=== PATIENT | female | born 1940 | race Caucasian/White ===

== ENCOUNTER 2024-03-23 12:47 | Observation (INO) | payer MEDICARE, SELFPAY ==
--- NOTE | 2024-03-23 12:52 | PC.NURSE ---
arrived by stretcher from [place]
--- NOTE | 2024-03-23 12:55 | HMH.PHAINT1 ---
Pharmacy Intervention Comments: MEDICATION RECONCILIATION COMPLETED ON PATIENT USING EXTERNAL FILL HISTORY FROM PHARMACY. -MARY IBARRA, AMYD
[2024-03-23 13:07] VITALS: PULSE 60
--- NOTE | 2024-03-23 13:10 | ECG_ITS ---
APPROVED REPORT Exam: Resting ECG HR:66 bpm ECG Measurements Heart Rate 66 AXES NM 155 P 60 QRSd 94 QRS -15 QT 397 T 35 QTc 411 Conclusion SINUS RHYTHM LEFT ATRIAL ABNORMALITY POSSIBLE LEFT VENTRICULAR HYPERTROPHY [VOLTAGE CRITERIA PLUS LAE OR QRS WIDENING] ABNORMAL ECG UNCONFIRMED REPORT Electronically signed by : Tano Alarcon MD 03/24/2024 08:55:42
--- NOTE | 2024-03-23 13:12 | P.HP_ITS ---
History of Present Illness *Admission Date: 03/23/24 *Reason for visit:: Chest pain *History of present illness: Ms. Villanueva is an 83-year-old female with history of hypertension, concern for memory impairment over the past year. Family states she fell about a week ago and sustained skin tear on her right arm. Yesterday however she began complaining of some chest pain. Worse this morning. Was sent to the ER at [facility] for evaluation. Workup fairly unremarkable other than CT of chest showing acute on chronic (slight progression) compression fractures in T10-12. Additionally found to have a high-sensitivity troponin that went from 28-73. No acute changes on EKG. Given chest pain and bump in troponin, cardiology was consulted for transfer. On arrival, patient stable on room air. Denies any nausea or vomiting. Points to the center of her chest, pain reproducible on exam. Family at bedside. Patient appears mildly/pleasantly confused. Oriented to self and situation. Difficulty getting history from her. Family at bedside. They deny fever, nausea, vomiting. No diarrhea. No confusion or syncope. Initiated on Brilinta and aspirin [facility]. [facility] Disclaimer: The information contained in this section may have been updated after the patient was seen, as this information can be updated by other users. Medical History (Updated 03/23/24 @ 15:52 by Jimmy Mitchell MD) Anxiety History of stroke Hypertension Surgical History History of hysterectomy Family History Other No significant family history Social History Smoking Status: Never smoker alcohol intake: never current occupational status: retired Travel in the last 8 weeks: None Review of Systems Review of Systems Review of systems (narrative): 14 point review of systems performed, pertinent positives and negatives as per [facility] Meds Home Medications and Allergies Home Medications ?Medication ?Instructions ?Recorded ?Confirmed ?Type alendronate 70 mg tablet 70 mg PO WEEKLY 03/23/24 03/23/24 History amlodipine 5 mg tablet 5 mg PO DAILY 03/23/24 03/23/24 History buspirone 15 mg tablet 15 mg PO TID 03/23/24 03/23/24 History dextromethorphan IR 45 1 tab PO BID 03/23/24 03/23/24 History mg-bupropion ER 105 mg biphasic tablet (Auvelity) New Prescriptions to Start Prescriptions: Allergies Allergy/AdvReac Type Severity Reaction Status Date / Time Penicillins Allergy Hives Verified 03/23/24 13:02 Exam Constitutional Constitutional: no acute distress, thin and cooperative *Routine HEENT Exam Head: Present normocephalic Eye: Present EOMI and PERRL ENT: Present mucous membranes moist *Routine Neck Exam Neck: Present supple; Absent lymphadenopathy Routine Chest/Breast/Axilla Exam Chest wall: Present tenderness (Over sternum and left lateral costosternal margin.) *Routine Respiratory Exam Respiratory: Present CTA bilaterally; Absent respiratory distress, rhonchi, wheezes or crackles *Routine Cardiovascular Exam Cardiovascular: Present RRR *Routine Abdominal Exam Abdominal: Present soft and normoactive bowel sounds; Absent tenderness *Routine Rectal Exam Rectal:: deferred *Routine Genitalia Exam Genitalia:: deferred *Routine Extremities Exam Extremities: Absent cyanosis, clubbing or edema *Routine Skin Exam Skin: Present warm; Absent rash *Routine Neurological Exam Neurological: Present alert and moving all extremities; Absent altered mental status Comments: Oriented to self, follows commands. GCS 15 Assessment and Plan *Assessment and plan (1) Chest wall pain: Status: Acute Category: Medical Code(s): R07.89 - Other chest pain (2) Elevated troponin: Status: Acute Category: Medical Code(s): R79.89 - Other specified abnormal findings of blood chemistry (3) History of stroke: Status: Acute Category: Medical Code(s): Z86.73 - Personal history of transient ischemic attack (TIA), and cerebral infarction without residual deficits (4) Hypertension: Status: Acute Category: Medical Code(s): I10 - Essential (primary) hypertension (5) Anxiety: Status: Acute Category: Medical Code(s): F41.9 - Anxiety disorder, unspecified Plan 83-year-old female with chest pain. Presented to outside hospital and found to have change in her high-sensitivity troponin. EKG with no ischemic changes. Cardiology was consulted and accepted for transfer. Discussed case with ER physician at [place], concern for chest pain, needing further eval as an inpatient. Accepted in transfer as well. Patient admitted to medicine for further management. Chest pain reproducible on exam however also had bump in troponin here on arrival. Monitoring overnight. Problems addressed as follows: Chest pain NSTEMI -Troponin at outside hospital on fifth GEN high-sensitivity of 28 --> 73 -EKG reviewed from outside hospital showing no ST changes or ischemic changes. - Troponin 0.21 on our initial labs. Serial troponin every 3 hours. Repeat EKG obtained, personally reviewed with no ST changes or acute ischemic changes. -Cardiology consulted, will obtain echo and monitor overnight on telemetry. Further management pending findings. -Loaded with 324 mg of aspirin and 180 mg of Brilinta at outside hospital. - continue Brilinta 90 mg twice daily, aspirin 81 mg daily. Lovenox 1 mg/kg x 1 for anticoagulation. Reevaluation by cardiology in the morning for possible inpatient versus outpatient intervention/workup Kidney function normal per review of labs from [facility] with BUN 6, creatinine 0.7. Hemoglobin 13.5. Normal white count of 6.2. High sensitivity troponin with elevation from 28-73. CT showing old compression fractures in T10-T12 Hypertension: Continue amlodipine 5 mg daily Anxiety: Continue BuSpar 15 mg 3 times a day CBC, CMP, magnesium, lipids ordered for the morning. Full code Ambulatory, holding on VTE Cardiac diet
[2024-03-23 13:42] VITALS: BMI 19.6
--- NOTE | 2024-03-23 13:43 | PC.NURSE ---
pt started c/o sharp chest pain at this time. RT at bedside to get radar technician getting vital signs.
--- NOTE | 2024-03-23 13:57 | PC.NURSE ---
made aware of pt's chest pain. no new orders at this time
[2024-03-23] MEDS: LIDOCAINE 5% TRANSDERMAL PATCH 1 EACH TP (14:05)
--- NOTE | 2024-03-23 15:11 | CA_ITS ---
APPROVED REPORT EXAM: Comprehensive 2D, Doppler, and color-flow Echocardiogram Building Analyst/Supervisor: Joanna Cummings CRT Ht: 5 ft 3 in Wt: 111lbs BSA: 1.50 BP: 124/68 mmHg Indications: CP, NSTEMI, HTN 2D Dimensions Left Atrium 2.22 cm LA Volume 16.70 mL LVOT 2.10 cm (M/F) 1.5-2.5 LA Volume Index 11.10 mL/m2 (M/F) 16-34 EF AP4 52.10 % GL Strain -17.3 % M-Mode Dimensions RVDd 2.59 cm (0.9-2.6) LVDd 4.98 cm (3.5-5.7) Ao Diam 3.73 cm (2.0-3.7) LVDs 3.46 cm (3.5-5.7) IVSd 1.40 cm (0.6-1.1) PWd 0.56 cm (0.6-1.1) EF (Teich) 57.70% FS 30.50% EDV (Teich) 117.10 mL TAPSE 1.91 (<1.7) ESV (Teich) 49.50 mL LV Diastology E Decel Time 264 (160-240 msec) E/A Ratio 0.78 MED E' 5.9 (>= 7 cm/sec) MED A' 11.80 cm/s E'/MED E' Ratio 11.69 (<= 14) LAT E' 7.8 (>= 10 cm/sec) LAT A' 9.60 cm/s E/LAT E' Ratio 8.85 (<= 14) Aortic Valve LVOT Max 157.0 (70-110 cm/s) PETER Index 2.12 cm2/m2 LVOT VTI 34.48 cm AoV Peak Sathya. 191.0 (50-130 cm/s) AI PHT 387.00 ms AO Peak GR. 13.10 mmHg AO Mean GR. 7.20 (<5 mmHg) AO VTI 37.4 (18-25 cm) PETER (VTI) 3.20 (2.5-4.5 cm2) Mitral Valve MV E Max Sathya. 69.0 (40-130 cm/s) MV A Velocity 88.0 (40-130 cm/s) E/A Ratio 0.78 MV Decel. Time 264 (160-240 ms) Tricuspid Valve TR P. Velocity 229.00 cm/s RAP Estimate 10.00 mmHg RVSP 31.00 mmHg Left Ventricle The left ventricle is normal size. LVEDd=5.8 cm. LVESd=4.3 cm. The left ventricular systolic function is low-normal. There is increased LV wall thickness. The septum is asynchronous. No regional wall motion abnormalities are noted. Diastolic function is indeterminate. LVEF is 50%. Right Ventricle Right ventricle is mildly dilated. The right ventricular systolic function is normal. Atria The left atrium size is normal. The right atrium size is normal. There is no Doppler evidence of interatrial shunt. Aortic Valve The aortic valve is mildly thickened. Aortic sclerosis, but no evidence of aortic stenosis. Moderate to severe aortic regurgitation Mitral Valve The mitral valve is normal in structure. No evidence of mitral valve stenosis. Mild mitral regurgitation. Tricuspid Valve The tricuspid valve leaflets are thin and pliable. Mild tricuspid regurgitation. RVSP is 25-30 mmHg. Pulmonic Valve The pulmonary valve is normal in structure. Mild pulmonic regurgitation. Great Vessels The aortic root is normal in size. The ascending aorta is mildly dilated, measuring 3.7 cm in diameter. IVC is dilated, but collapses > 50% with respirophasic variation. RA pressure is estimated at 8 mmHg. Pericardium There is no pericardial effusion. Other Information Study Quality: Fair Conclusion Low-normal LV systolic function (LVEF 50%). Normal LV dimensions (LVEDd=5.8 cm. LVESd=4.3 cm). Asynchronous septum. Mild RV dilation. Moderate to severe AI. Mild MR, mild TR, mild PI. Serial assessment of the moderate to severe AI is recommended. If clinically appropriate, further evaluation with cardiac MRI (aortic valve disease protocol) is also suggested to determinate LV dimensions and severity of AI on CMR. Electronically signed by : Anila Reyes MD 03/24/2024 19:56:22
--- NOTE | 2024-03-23 15:11 | P.CONCA_ITS ---
History of Present Illness History of Present Illness Consult date: 03/23/24 Requesting physician: Jimmy Mitchell Consult reason: chest pain Chief complaint: chest pain History of present illness: 83 yo WF without known CVD transferred from [facility] ED for us to evaluate her chest pain. Pt's family including her son who is [employer] Parametic/Complex Care Nurse Practitioner are bedside assisting with history. 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 She has had several mechanical falls over the past years and has an old right 7th rib fracture. Patient fell at home on March 17 and hurt her right arm and ribs. Yesterday she developed gradual onset of worsening substernal sharp chest pain worse with chest wall palpation and deep breathing. Improved with rest and lidocaine patch. She presented to the emergency room due to the severity of the pain and they checked serial high-sensitivity troponins which elevated from 25-75 so she was transferred here for interventional cardiology. On arrival she is in no distress and is actually upset that she was transferred. Her pain continues with deep breathing. EKG shows sinus rhythm without ischemia. She has no prior cardiac history. Denies DM, Chol, Tob use. [facility] Disclaimer: The information contained in this section may have been updated after the patient was seen, as this information can be updated by other users. Medical History (Updated 03/23/24 @ 15:17 by SKY Solitario) History of stroke Hypertension Surgical History History of hysterectomy Family History Other No significant family history Social History Smoking Status: Never smoker alcohol intake: never current occupational status: retired Travel in the last 8 weeks: None Review of Systems *Cardiovascular Comments: Chest pain Exam Data for Last 24 hours Vital signs and Labs for Last 24 Hours: Pulse O2 Del Method 60 Room Air 03/23/24 13:07 03/23/24 14:59 I & O for Last 24 hours: Intake & Output 03/20/24 03/21/24 03/22/24 03/23/24 23:59 23:59 23:59 23:59 Weight 111 lb Constitutional Constitutional: no acute distress and cooperative *Routine HEENT Exam Eye: Present PERRL *Routine Respiratory Exam Respiratory: Present CTA bilaterally; Absent accessory muscle use, wheezes or crackles *Routine Cardiovascular Exam Cardiovascular: Present RRR, Normal S1 and Normal S2; Absent murmur, gallop or rubs Comments: Substernal chest wall pain reproducible with mild palpation or deep breathing *Routine Abdominal Exam Abdominal: Present soft; Absent tenderness *Routine Extremities Exam Extremities: Present pulses intact; Absent cyanosis or edema *Routine Skin Exam Skin: Present intact; Absent erythema or wounds *Routine Neurological Exam Neurological: Present alert and oriented X3 Routine Psychiatric Exam Psychiatric: Present cooperative Meds Home Medications and Allergies Home Medications ?Medication ?Instructions ?Recorded ?Confirmed ?Type alendronate 70 mg tablet 70 mg PO WEEKLY 03/23/24 03/23/24 History amlodipine 5 mg tablet 5 mg PO DAILY 03/23/24 03/23/24 History buspirone 15 mg tablet 15 mg PO TID 03/23/24 03/23/24 History dextromethorphan IR 45 1 tab PO BID 03/23/24 03/23/24 History mg-bupropion ER 105 mg biphasic tablet (Auvelity) New Prescriptions to Start Prescriptions: Allergies Allergy/AdvReac Type Severity Reaction Status Date / Time Penicillins Allergy Hives Verified 03/23/24 13:02 Assessment and Plan *Assessment and plan (1) Elevated troponin: Status: Acute Category: Medical Code(s): R79.89 - Other specified abnormal findings of blood chemistry (2) Chest wall pain: Status: Acute Category: Medical Code(s): R07.89 - Other chest pain (3) Recurrent falls: Status: Acute Category: Medical Code(s): R29.6 - Repeated falls Plan Chest wall pain -Unlikely to be cardiac in nature as it is reproducible but given her recurrent falls on her chest and low BMI will check third troponin and 2D echo for evaluation of cardiac contusion -Defer analgesic management to hospital service Hypertension -Resume home meds Anxiety with depression -Uncontrolled at this time, family states she missed her lunchtime dose -Discussed with nurse and hospitalist, they will arrange to resume her anxiety meds and get her a meal. History of CVA -Details unclear, she has residual confusion -Can evaluate further as an outpatient
[2024-03-23] MEDS: BUSPIRONE 15 MG 15 EACH PO ×2 (15:25→20:25)
[2024-03-23 15:33] LABS: Troponin I 0.21 ng/ml (0.00-0.034)
--- NOTE | 2024-03-23 15:59 | PC.NURSE ---
attempted to reach pablito with cardiology x3 to notify him of critical troponin. Office states that he has already left for the day. Paula ramirez
[2024-03-23 16:00] VITALS: PULSE 70; RESP 18; TEMP 36.9; O2SAT 97
[2024-03-23] MEDS: ENOXAPARIN 60MG/0.6ML SYRINGE 50 MG SQ (16:46)
--- NOTE | 2024-03-23 17:00 | PC.NURSE ---
Pt has c/o sternal chest pain x1 since arriving to [facility]. Family at bedside and very involved in pt care. Pt has had no other concerns. VSS.
[2024-03-23 17:12] LABS: Troponin I 0.39 ng/ml (0.00-0.034)
[2024-03-23 19:44] LABS: Troponin I 0.53 ng/ml (0.00-0.034)
[2024-03-23 19:52] VITALS: BP 130/51; PULSE 80; RESP 16; TEMP 36.6; O2SAT 94
[2024-03-23 20:00] VITALS: PULSE 70
--- NOTE | 2024-03-23 20:16 | ECG_ITS ---
APPROVED REPORT Exam: Resting ECG HR:79 bpm ECG Measurements Heart Rate 79 AXES MS 152 P 45 QRSd 93 QRS -10 QT 358 T 52 QTc 393 Conclusion SINUS RHYTHM SEPTAL MYOCARDIAL INFARCTION , PROBABLY OLD [40+ ms Q WAVE IN V1/V2] ABNORMAL ECG UNCONFIRMED REPORT Electronically signed by : Tano Alarcon MD 03/24/2024 08:53:21
[2024-03-23] MEDS: BUPROPION PO (20:25)
[2024-03-23] MEDS: DEXTROMETHORPHAN PO (20:25)
[2024-03-23] MEDS: TICAGRELOR 90MG TABLET 90 MG PO (20:25)
[2024-03-23] MEDS: DOCUSATE SODIUM 100 MG CAPSULE PO (20:59)
[2024-03-23] MEDS: NITROGLYCERIN 0.4MG SL TABLET 0.4 MG SL (21:08)
--- NOTE | 2024-03-23 21:33 | PC.NURSE ---
patient complained of chest pain 03/26, EKG performed, RAILROAD CAR REPAIRMAN aware, sublingual nitro given with favorable result, reports no pain at this time
[2024-03-23 23:30] LABS: Troponin I 0.54 ng/ml (0.00-0.034)
[2024-03-24] VITALS: BP 115/48; PULSE 67; PULSE 80; RESP 16; TEMP 37; O2SAT 94
[2024-03-24 04:00] VITALS: BP 130/45; PULSE 60; RESP 16; TEMP 36.9; O2SAT 94; BMI 19.5
[2024-03-24 06:13] LABS: Basophils # 0.1 K/mm3 (0-0.2); Basophils % 0.9 % (0.1-2.0); Eosinophils % 0.2 % (0.1-12.0); Hematocrit 38.7 % (37.0-47.0); Hemoglobin 12.6 g/dL (12.2-16.2); Lymphocytes % 20.5 % (10-50); Mean Corpuscular HGB Conc 32.6 g/dL (31.8-35.4); Mean Corpuscular Hemoglobin 33.5 pg (27.0-31.2); Mean Corpuscular Volume 102.9 fl (81-99); Mean Platelet Volume 7.5 fl (7.4-10.4); Monocytes # 0.5 K/mm3 (0.1-1.0); Monocytes % 9.2 % (1.7-9.3); Neutrophils # 3.4 K/mm3 (1.8-7.8); Neutrophils % 69.1 % (37.0-80.0); Platelet Count 242 K/mm3 (142-424); Red Blood Count 3.76 M/mm3 (4.20-5.40); Red Cell Distribution Width 12.9 % (11.5-17.5)
[2024-03-24 06:15] LABS: Albumin Level 3.4 g/dl (3.5-5.0); Chloride 105 mmol/L (98-107); Potassium 4.3 mmoL/L (3.5-5.1); Sodium 137 mmol/L (136-145)
[2024-03-24 06:18] LABS: Alanine Aminotransferase 16 U/L (12-78); Albumin/Globulin Ratio 1.3 (1.1-1.8); Alkaline Phosphatase 65 U/L (38-126); Anion Gap 5.3 mEq/L (5-15); Aspartate Amino Transferase 31 U/L (14-36); Bilirubin,Total 0.6 mg/dl (0.2-1.3); Blood Urea Nitrogen 14 mg/dl (7-17); Carbon Dioxide 31 mmol/L (22.0-30.0); Creatinine Clearance Estimated 33 mL/min (50-200); Estimated Glomerular Filt Rate 68 ml/min (>60); GFR (African American) 83 ML/MIN (>60); Globulin 2.7 g/dL (1.3-3.2); Glucose 93 mg/dl (74-100); Phosphorous 4.8 mg/dl (2.5-4.5); Total Protein,Serum 6.1 g/dl (6.3-8.2)
[2024-03-24 06:19] LABS: Magnesium 2.1 mg/dl (1.6-2.3)
[2024-03-24 06:26] LABS: Chol/HDL Ratio 2.2 (1-3.5); Cholesterol 144 mg/dl (140-200); HDL Cholesterol 65 mg/dl (40-60); Triglycerides 63 mg/dl (30-150); VLDL Cholesterol 13 mg/dL (0-40)
[2024-03-24 06:37] LABS: Direct LDL Cholesterol 53.04 mg/dL (100-129)
[2024-03-24 07:01] LABS: Troponin I 0.41 ng/ml (0.00-0.034)
[2024-03-24 07:39] VITALS: BP 158/61; PULSE 67; RESP 21; TEMP 36.4; O2SAT 96
[2024-03-24 08:00] VITALS: PULSE 70
[2024-03-24] MEDS: TICAGRELOR 90MG TABLET 90 MG PO (08:29)
[2024-03-24] MEDS: BUPROPION PO (08:29)
[2024-03-24] MEDS: DEXTROMETHORPHAN PO (08:29)
[2024-03-24] MEDS: ASPIRIN EC 81MG TABLET 81 MG PO (08:29)
[2024-03-24] MEDS: BUSPIRONE 15 MG 15 EACH PO ×2 (08:30→13:28)
[2024-03-24] MEDS: AMLODIPINE 5 MG PO (08:32)
--- NOTE | 2024-03-24 09:36 | ECG_ITS ---
APPROVED REPORT Exam: Resting ECG HR:64 bpm ECG Measurements Heart Rate 64 AXES RI 158 P 56 QRSd 93 QRS -6 QT 408 T 31 QTc 417 Conclusion SINUS RHYTHM POSSIBLE LEFT ATRIAL Abnormality BORDERLINE ECG UNCONFIRMED REPORT Electronically signed by : Tano Alarcon MD 03/25/2024 14:39:07
--- NOTE | 2024-03-24 10:28 | PC.NURSE ---
Pt called out stating she was having dull chest pain. vitals taken BP: 155/58 RR:21 98% on room air. Servando Oneill from cardiology is aware and is on the floor.
[2024-03-24 11:19] LABS: Troponin I 0.22 ng/ml (0.00-0.034)
[2024-03-24 12:00] VITALS: PULSE 105
--- NOTE | 2024-03-24 12:37 | P.PN_ITS ---
Subjective Subjective Date: 03/24/24 Time: 10:00 Interval history: No events overnight. Patient has continued pleuritic chest pain. Her 2D echo today reveals moderate to severe AI which is a new diagnosis for her. She denies reduced functional capacity at home. She would like to be discharged [facility]. Exam Data for Last 24 hours Vital signs and Labs for Last 24 Hours: Temp Pulse Resp BP Pulse Ox O2 Del Method 97.6 F 70 21 158/61 H 96 Room Air 03/24/24 07:39 03/24/24 08:00 03/24/24 07:39 03/24/24 07:39 03/24/24 07:39 03/24/24 11:00 Laboratory Results - last 24 hr 03/23/24 14:05: Troponin I 0.21 H 03/23/24 16:15: Troponin I 0.39 H 03/23/24 19:11: Troponin I 0.53 H 03/23/24 22:25: Troponin I 0.54 H 03/24/24 05:39: WBC 5.0, RBC 3.76 L, Hgb 12.6, Hct 38.7, MCV 102.9 H, MCH 33.5 H , MCHC 32.6, RDW 12.9, Plt Count 242, MPV 7.5, Neut % (Auto) 69.1, Lymph % (Auto) 20.5, Robertson % (Auto) 9.2, Eos % (Auto) 0.2, Baso % (Auto) 0.9, Neut # (Auto) 3.4, Lymph # (Auto) 1.0, Robertson # (Auto) 0.5, Eos # (Auto) 0.0, Baso # (Auto) 0.1, Sodium 137, Potassium 4.3, Chloride 105, Carbon Dioxide 31 H, Anion Gap 5.3, BUN 14, Creatinine 0.80, Estimated Creat Clear 33, Estimated GFR 68, Est GFR ( Amer) 83, Glucose 93, Calcium 8.0 L, Phosphorus 4.8 H, Magnesium 2.1, Total Bilirubin 0.6, AST 31, ALT 16, Alkaline Phosphatase 65, Troponin I 0.41 H, Total Protein 6.1 L, Albumin 3.4 L, Globulin 2.7, Albumin/Globulin Ratio 1.3, Triglycerides 63, Cholesterol 144, LDL Cholesterol Direct 53.04 L, VLDL Cholesterol 13, HDL Cholesterol 65 H, Cholesterol/HDL Ratio 2.2 03/24/24 10:43: Troponin I 0.22 H I & O for Last 24 hours: Intake & Output 03/21/24 03/22/24 03/23/24 03/24/24 23:59 23:59 23:59 23:59 Intake Total 180 / 420 240 / 240 Output Total 0 / 0 0 / 0 Balance 180 / 420 240 / 240 Weight 111 lb 110 lb 10.753 oz Constitutional Constitutional: no acute distress and cooperative *Routine HEENT Exam Eye: Present PERRL *Routine Respiratory Exam Respiratory: Present CTA bilaterally; Absent accessory muscle use, wheezes or crackles *Routine Cardiovascular Exam Cardiovascular: Present RRR, Normal S1 and Normal S2; Absent murmur, gallop or rubs *Routine Abdominal Exam Abdominal: Present soft; Absent tenderness *Routine Extremities Exam Extremities: Present pulses intact; Absent cyanosis or edema *Routine Skin Exam Skin: Present intact; Absent erythema or wounds *Routine Neurological Exam Neurological: Present alert and oriented X3 Comments: Poor historian Routine Psychiatric Exam Psychiatric: Present cooperative Progress Note: A&P Assessment and plan (1) Aortic insufficiency: Status: Acute (2) Chest wall pain: Status: Acute (3) Elevated troponin: Status: Acute (4) History of stroke: Status: Acute (5) Hypertension: Status: Acute (6) Anxiety: Status: Acute Assessment and Plan Assessment and Plan for All Diagnoses:: Chest wall pain -noncardiac chest pain due to mechanical fall, no contusion noted on ECHO -Defer analgesic management to hospital service Moderate-Severe Aortic Insufficiency - new dx, incidental finding on ECHO this admission - likely the reason for Trop bump in setting of severe anxiety and pain - pt denies exertional symptoms - will f/u on this outpatient Hypertension -Resume home meds Anxiety with depression -Uncontrolled at this time, family states she missed her lunchtime dose -Discussed with nurse and hospitalist, they will arrange to resume her anxiety meds and get her a meal. History of CVA -Details unclear, she has residual confusion -Can evaluate further as an outpatient CV stable for DC home. F/u in our office 1-2 weeks.
--- NOTE | 2024-03-25 13:06 | CARE MANAGER ---
Called and spoke with patient's spouse to discuss recent discharge. He stated that patient is doing well, no concerns at time of call. He was aware of scheduled f/u appt.
--- NOTE | 2024-04-06 15:58 | EXP.DC.SUM ---
General Admission date:: 03/23/24 Discharge date: 03/25/24 HPI HPI HPI: Ms. Villanueva is an 83-year-old female with history of hypertension, concern for memory impairment over the past year. Family states she fell about a week ago and sustained skin tear on her right arm. Yesterday however she began complaining of some chest pain. Worse this morning. Was sent to the ER at [facility] for evaluation. Workup fairly unremarkable other than CT of chest showing acute on chronic (slight progression) compression fractures in T10-12. Additionally found to have a high-sensitivity troponin that went from 28-73. No acute changes on EKG. Given chest pain and bump in troponin, cardiology was consulted for transfer. On arrival, patient stable on room air. Denies any nausea or vomiting. Points to the center of her chest, pain reproducible on exam. Family at bedside. Patient appears mildly/pleasantly confused. Oriented to self and situation. Difficulty getting history from her. Family at bedside. They deny fever, nausea, vomiting. No diarrhea. No confusion or syncope. Initiated on Brilinta and aspirin [facility]. Hospital Course Hospital Course Hospital Course: 83-year-old female with chest pain. Presented to outside hospital and found to have change in her high-sensitivity troponin. EKG with no ischemic changes. Cardiology was consulted and accepted for transfer. Discussed case with ER physician at [place], concern for chest pain, needing further eval as an inpatient. Accepted in transfer as well. Patient admitted to medicine for further management. Chest pain reproducible on exam however also had bump in troponin here on arrival. patient was evaluated for chest pain by cardiology, ACS was ruled out and patient was recommended to follow up as OP, patient agreed with the plan On the date of discharge, the patient reported feeling stable. The patient was found not to be in any acute distress, and no new abnormalities on physical examination. Further, the patient expressed appropriate understanding of, and agreement with, the discharge recommendations, medications, and plan. Time spent 37 mins Exam Data for Last 24 hours Vital signs and Labs for Last 24 Hours: Temp Pulse Resp BP Pulse Ox O2 Del Method 97.6 F 105 H 21 158/61 H 96 Room Air 03/24/24 07:39 03/24/24 12:00 03/24/24 07:39 03/24/24 07:39 03/24/24 07:39 03/24/24 15:00 Constitutional Constitutional: no acute distress *Routine HEENT Exam Head: Present normocephalic Eye: Present EOMI and PERRL ENT: Present mucous membranes moist *Routine Neck Exam Neck: Present supple; Absent lymphadenopathy *Routine Respiratory Exam Respiratory: Present CTA bilaterally *Routine Cardiovascular Exam Cardiovascular: Present RRR *Routine Abdominal Exam Abdominal: Present soft and normoactive bowel sounds; Absent tenderness *Routine Extremities Exam Extremities: Absent cyanosis, clubbing or edema *Routine Skin Exam Skin: Present warm; Absent rash *Routine Neurological Exam Neurological: Present alert and oriented X3 DS: Diagnosis Discharge Diagnosis (1) Aortic insufficiency: Status: Acute Code(s): I35.1 - Nonrheumatic aortic (valve) insufficiency (2) Chest wall pain: Status: Acute Code(s): R07.89 - Other chest pain (3) Elevated troponin: Status: Acute Code(s): R79.89 - Other specified abnormal findings of blood chemistry (4) History of stroke: Status: Acute Code(s): Z86.73 - Personal history of transient ischemic attack (TIA), and cerebral infarction without residual deficits (5) Hypertension: Status: Acute Code(s): I10 - Essential (primary) hypertension (6) Anxiety: Status: Acute Code(s): F41.9 - Anxiety disorder, unspecified Meds Home Medications and Allergies Home Medications ?Medication ?Instructions ?Recorded ?Confirmed ?Type alendronate 70 mg tablet 70 mg PO WEEKLY 03/23/24 03/23/24 History amlodipine 5 mg tablet 5 mg PO DAILY 03/23/24 03/23/24 History buspirone 15 mg tablet 15 mg PO TID 03/23/24 03/23/24 History dextromethorphan IR 45 1 tab PO BID 03/23/24 03/23/24 History mg-bupropion ER 105 mg biphasic tablet (Auvelity) New Prescriptions to Start Prescriptions: Allergies Allergy/AdvReac Type Severity Reaction Status Date / Time Penicillins Allergy Hives Verified 03/23/24 13:02 Discharge Plan Disposition Patient Disposition: Home, Self-Care Condition: Good Follow up Plan Follow up with: Servando Oneill PA [Physician Refractory Mixer] - 04/07/24 9:45 am Marin Ambrose MD [Referring] - 03/30/24 11:00 am Prescriptions/Medication Reconciliation: Continued amlodipine 5 mg tablet 5 mg PO DAILY buspirone 15 mg tablet 15 mg PO TID Auvelity 45-105 mg tablet, IR and ER, biphasic 1 tab PO BID Patient Comments: TAKE 1 TABLET BY MOUTH TWICE DAILY alendronate 70 mg tablet 70 mg PO WEEKLY Problem Reconciliation Problems Reviewed?: Yes Patient Discharge Instructions ACTIVITY: Ambulate as tolerated DIET: continue same diet Patient Instructions: DI for Chest Pain Print Language: Croatian Providers Primary Care Provider: Provider,Referral Admit Provider: Jimmy Mitchell Attending Provider: Jimmy Mitchell
== END 2024-03-24 16:10 | disposition home or self-care (01) ==
PROVIDERS: Nurse Practitioner Family; Physician Assistant; Admitting Provider Internal Medicine Adolescent Medicine; Visit Provider Internal Medicine Adolescent Medicine
DX: R07.89 Other chest pain (principal); R79.89 Other specified abnormal findings of blood chemistry; Z86.73 Personal history of transient ischemic attack (TIA), and cerebral infarction without residual deficits; I10 Essential (primary) hypertension; F41.9 Anxiety disorder, unspecified; R29.6 Repeated falls; I35.1 Nonrheumatic aortic (valve) insufficiency; Z79.899 Other long term (current) drug therapy
CPT/HCPCS: G0379; 36415; 80053; 80061; 83735; 84100; 84484; 85025; 93005; 93306; G0378; J1650

== ENCOUNTER 2025-07-31 11:45 | Inpatient (IN) | payer MEDICARE, SELFPAY ==
[2025-07-31] VITALS (10 sets, daily range): BP systolic 115–178; BP diastolic 60–121; PULSE 68–100; RESP 12–20; TEMP 36.6–37.1; O2SAT 94–98; BMI 20.1; BMI 19.5
--- NOTE | 2025-07-31 11:52 | XR_ITS ---
PROCEDURE INFORMATION: Exam: XR Left Hip Exam date and time: 07/31/2025 12:17 PM Age: 85 years old Clinical indication: Hip pain; Left hip; Additional info: Pain/fall TECHNIQUE: Imaging protocol: Radiologic exam of the left hip. Views: 2 or 3 views hip with pelvis when performed. Total images: 2 COMPARISON: No relevant prior studies available. FINDINGS: Bones/joints: Fracture of the left proximal femur with impaction and superior and lateral displacement of the distal fracture fragment. No evidence of acute dislocation. Degenerative changes of the left hip. Soft tissues: Lateral soft tissue swelling. IMPRESSION: 1. Fracture of the left proximal femur with impaction and superior and lateral displacement of the distal fracture fragment. 2. No evidence of acute dislocation. 3. Degenerative changes of the left hip. 4. Lateral soft tissue swelling.
--- NOTE | 2025-07-31 11:53 | XR_ITS ---
PROCEDURE INFORMATION: Exam: XR Chest Exam date and time: 07/31/2025 12:17 PM Age: 85 years old Clinical indication: Shortness of breath; Additional info: Short of breath TECHNIQUE: Imaging protocol: Radiologic exam of the chest. Views: 1 view. Total images: 1 COMPARISON: CT CHEST PE PROTOCOL 03/23/2024 10:22 AM FINDINGS: Lungs: Bilateral hyperinflation is present. Atelectatic changes noted within both lung bases. Pleural spaces: Apical pleural thickening noted bilaterally. Heart/Mediastinum: Heart demonstrates mild diffuse enlargement. Vasculature: Tortuosity of the thoracic aorta. Bones/joints: Rightward curvature of the thoracic spine with mild degenerative changes. Degenerative changes of the glenohumeral and acromioclavicular joints. Old right-sided rib fractures. IMPRESSION: 1. Mild cardiomegaly. 2. Bilateral hyperinflation is present. 3. Atelectatic changes noted within both lung bases.
--- NOTE | 2025-07-31 12:10 | ECG_ITS ---
APPROVED REPORT Exam: Resting ECG HR:85 bpm ECG Measurements Heart Rate 85 AXES AL 162 P 72 QRSd 91 QRS 56 QT 366 T 46 QTc 409 Conclusion SINUS RHYTHM WITH SINUS ARRHYTHMIA POSSIBLE RIGHT ATRIAL ENLARGEMENT [0.25mV P-WAVE] POSSIBLE LEFT ATRIAL ENLARGEMENT [-0.1mV P-WAVE IN V1/V2] POSSIBLE LEFT VENTRICULAR HYPERTROPHY [VOLTAGE CRITERIA PLUS LAE OR QRS WIDENING] ABNORMAL ECG UNCONFIRMED REPORT Normal sinus rhythm. No STEMI Electronically signed by : TRINI UNDERWOOD, 07/31/2025 15:53:06
--- NOTE | 2025-07-31 12:15 | PC.NURSE ---
PT TO CT
[2025-07-31 12:16] LABS: Hematocrit 38.9 % (37.0-47.0); Hemoglobin 12.9 g/dL (12.2-16.2); Immature Granulocytes % 0.4 %; Mean Corpuscular HGB Conc 33.2 g/dL (31.8-35.4); Mean Corpuscular Hemoglobin 33.4 pg (27.0-31.2); Mean Corpuscular Volume 100.8 fl (81-99); Nucleated Red Blood Cells % 0 %; Platelet Count 271 K/mm3 (142-424); Red Blood Count 3.86 M/mm3 (4.20-5.40); Red Cell Distribution Width-SD 45.9 fL; White Blood Count 16.3 K/mm3 (4.8-10.8)
--- NOTE | 2025-07-31 12:19 | ED_ITS ---
<Statement entered by Josemanuel Dowell MD - 07/31/25 15:50> I was consulted by the HOLLIE, and we discussed the complexity of the problems being addressed. I approve the treatment and management plan for this patient's care in the emergency department, thus performing a substantive portion of the medical decision making. Josemanuel Dowell MD Discharge Plan Disposition Patient Disposition: Admitted Prescriptions Prescriptions: No Action aspirin 81 mg tablet,chewable 81 mg PO DAILY amlodipine 5 mg tablet 5 mg PO DAILY buspirone 15 mg tablet 15 mg PO TID Auvelity 45-105 mg tablet, IR and ER, biphasic 1 tab PO BID Patient Comments: TAKE 1 TABLET BY MOUTH TWICE DAILY alendronate 70 mg tablet 70 mg PO WEEKLY Referrals Follow up/Referrals: Marin Ambrose MD [Primary Care Provider, Medical] - See instructions Clinical Impressions Clinical Impression: Closed hip fracture Print Language Print Language: Trinidadian Discharge ED Provider: Josemanuel Dowell General Adult HPI <Donna Beltran (ED), [employer] - Last Filed: 07/31/25 14:16> General Chief complaint: Fall Stated complaint: Fall Time Seen by Provider: 07/31/25 11:52 Mode of Arrival: EMS Source of Information: Patient and EMS Description of Symptoms (Recalled from ER Triage Doc. by RN): PT BROUGHT VIA EMS FOR A FALL WITH LEFT HIP PAIN. PT REPORTS FALL WITH LEFT HIP PAIN, UNKNOWN CAUSE OF FALL. SKIN TEAR TO RIGHT CHIN. PT DENIES NECK OR BACK PAIN History of Present Illness HPI narrative: 85-year-old female presents to the ED today for complaint of fall. This was an unwitnessed fall. Patient has left hip pain. She also has a skin tear on her right alfaro. Denies neck or back pain. She is confused at baseline. She does have a breathing problem but says this is a normal breathing for her. Her O2 is 97% on room air. Related Data Home Medications ?Medication ?Instructions ?Recorded ?Confirmed alendronate 70 mg tablet 70 mg PO WEEKLY 03/23/24 amlodipine 5 mg tablet 5 mg PO DAILY 03/23/2404/07 buspirone 15 mg tablet 15 mg PO TID 03/23/24 dextromethorphan IR 45 1 tab PO BID 03/23/24 mg-bupropion ER 105 mg biphasic tablet (Auvelity) aspirin 81 mg chewable tablet 81 mg PO DAILY 04/07/24 04/07/24 Allergies Allergy/AdvReac Type Severity Reaction Status Date / Time Penicillins Allergy Hives Verified 04/07/24 09:53 PFSH <Donna Beltran (ED), [employer] - Last Filed: 07/31/25 14:16> PFS Disclaimer: The information contained in this section may have been updated after the patient was seen, as this information can be updated by other users. Medical History Anxiety History of stroke Hypertension Surgical History History of hysterectomy Family History Other No significant family history Social History Smoking Status: Never smoker alcohol intake: never current occupational status: retired Travel in the last 8 weeks?: None Have you lived/traveled outside US in past 30 days?: No Contact w/someone who lives/traveled outside US past 30 days?: No Exposure to someone with infectious disease in past 14 days?: No Do you have a fever (greater than 100.4 F or 38 C)?: No Have you tested positive for COVID-19?: No Exposed to someone with COVID-19 in past 14 days?: No Do you have a sore throat?: No Do you have a cough?: No Do you have any weakness?: No Do you have any diarrhea?: No Are you experiencing any unusual bleeding?: No Do you have any muscle aches/pain?: No Do you have any abdominal pain?: No Are you experiencing loss of taste or smell?: No Other Medical History Have you received the Flu Vaccine for this season: No Have you received the Pneumonia Vaccine: Yes <Donna Beltran (ED), [employer] - Last Filed: 07/31/25 14:16> ROS Obtained: Yes Systems reviewed as appropriate & no additional complaints except as documented Constitutional Constitutional: Reports as per HPI Physical Exam <Donna Beltran (ED), [employer] MEMBER - Last Filed: 07/31/25 14:16> General General appearance: alert and other (Obvious pain) Head Head exam: atraumatic and normocephalic Eye Eye exam: Present PERRL and EOMI ENT ENT exam: Present normal oropharynx and mucous membranes moist Neck Neck exam: Present full ROM and trachea midline Respiratory Respiratory exam: Present wheezes (With scattered rhonchi) Cardiovascular Cardiovascular exam: Present regular rate, normal rhythm, normal heart sounds, +S1 and +S2 Abdominal Exam Abdominal exam: Present soft and normal bowel sounds Extremities Exam Extremities exam: Present full ROM, tenderness (Left hip) and normal capillary refill Neurological Exam Neurological exam: Present alert and oriented X3 Skin Skin exam: Present warm and dry Medical Decision Making <Donna Beltran (ED), [employer] - Last Filed: 07/31/25 14:16> Medical Records Screening: Per USPSTF and CDC recommendations, given the prevalence of disease in our region, it is our hospital?s policy to screen for HIV and viral Hepatitis for all patients aged 18 and over and those with ongoing risk factors. Emre Inquiry Pt receiving controlled substance: No Emre was queried for this patient: No Vital Signs: 07/31/25 11:45 07/31/25 11:54 07/31/25 12:01 Temperature 97.9 F Temperature Source Oral Pulse Rate 86 86 Pulse Rate [Apical] 85 Respiratory Rate 20 Blood Pressure 144/121 H 178/64 H Blood Pressure [Right Arm] 144/121 H Blood Pressure Mean Blood Pressure Mean [Right Arm] 128 Blood Pressure Source [Right Arm] Automatic Cuff Blood Pressure Position [Right Arm] Sitting 02 Sat by Pulse Oximetry 96 97 97 Oxygen Delivery Method Room Air Room Air Room Air 07/31/25 12:42 07/31/25 13:02 07/31/25 13:32 Temperature Temperature Source Pulse Rate 87 87 Pulse Rate [Apical] Respiratory Rate Blood Pressure 157/64 H 166/71 H 115/62 Blood Pressure [Right Arm] Blood Pressure Mean 88 Blood Pressure Mean [Right Arm] Blood Pressure Source [Right Arm] Blood Pressure Position [Right Arm] 02 Sat by Pulse Oximetry 97 94 L Oxygen Delivery Method Room Air Room Air Lab Data Lab Results 07/31/25 12:04: WBC 16.3 H, RBC 3.86 L, Hgb 12.9, Hct 38.9, MCV 100.8 H, MCH 33.4 H, MCHC 33.2, RDW 12.3, Plt Count 271, MPV 9.5, Neut % (Auto) 83.4 H, Lymph % (Auto) 7.9 L, [place] % (Auto) 7.7, Eos % (Auto) 0.2, Baso % (Auto) 0.4, Neut # (Auto) 13.6 H, Lymph # (Auto) 1.3, [place] # (Auto) 1.3 H, Eos # (Auto) 0.0, Baso # (Auto) 0.1, Sodium 134 L, Potassium 4.7, Chloride 105, Carbon Dioxide 27, Anion Gap 6.7, BUN 20 H, Creatinine 0.80, Estimated Creat Clear 32, Estimated GFR 68, Est GFR ( Amer) 82, Glucose 104 H, Lactate 1.3, Calcium 8.7, Magnesium 2.2, Total Bilirubin 0.8, AST 46 H, ALT 23, Alkaline Phosphatase 63, Troponin I 0.03, Total Protein 7.1, Albumin 4.2, Globulin 2.9, Albumin/Globulin Ratio 1.4, Lipase 65, HIV Ag/Ab Combo Qual Negative 07/31/25 13:25: Urine Color Yellow, Urine Appearance Clear, Urine pH 7.5, Ur Specific [place] 1.015, Urine Protein Negative, Urine Glucose (UA) Negative, Urine Ketones Negative, Urine Blood Negative, Urine Nitrate Negative, Urine Bilirubin Negative, Urine Urobilinogen 0.2, Ur Leukocyte Esterase Negative, Urine RBC None, Urine WBC None, Ur Squamous Epith Cells Occasional, Urine Bacteria None 07/31/25 12:04 07/31/25 12:04 Orders (Tests/Meds): ED MEDICATIONS Generic Name Dose Route Start Last Admin Trade Name Freq PRN Reason Stop Dose Admin Hydrocodone Bitart/Acetaminophen 1 tab 07/31/25 13:57 Hydrocodone/Apap 5/325 Mg Tablet PO 08/30/25 13:56 Q4HP PRN Mild to Moderate Pain (1-6) Hydrocodone Bitart/Acetaminophen 2 tab 07/31/25 13:57 Hydrocodone/Apap 5/325 Mg Tablet PO 08/30/25 13:56 Q4HP PRN Moderate to Severe Pain (4-10) Discontinued Medications Generic Name Dose Route Start Last Admin Trade Name Freq PRN Reason Stop Dose Admin Acetaminophen 1,000 mg 07/31/25 11:57 07/31/25 12:34 Acetaminophen 1,000mg/100ml Vial IV 07/31/25 11:58 1,000 mg ONCE ONE Administration Bupivacaine HCl 5 mg 07/31/25 13:27 07/31/25 13:41 Bupivacaine 0.25% 10ml Inj IJ 07/31/25 13:28 5 mg ONCE ONE Administration Buspirone HCl 20 mg 07/31/25 12:38 07/31/25 12:53 Buspirone Hcl 10 Mg Tablet PO 07/31/25 12:39 20 mg ONCE ONE Administration Lidocaine HCl 20 ml 07/31/25 13:27 07/31/25 13:40 Lidocaine 1% 20ml Mdv IJ 07/31/25 13:28 20 ml ONCE ONE Administration Morphine Sulfate 4 mg 07/31/25 12:08 07/31/25 12:34 Morphine 4mg/Ml Syringe IV 07/31/25 12:09 4 mg ONCE ONE Administration Ondansetron HCl 4 mg 07/31/25 12:08 07/31/25 12:34 Ondansetron 4mg/2ml Vial IV 07/31/25 12:09 4 mg ONCE ONE Administration ORDERS Category Date Time Status Cardiology Consult [Consult to Cardiology] [CONS] Cons 07/31/25 14:04 Active Routine Ortho Consult [Consult to Orthopedic Surgery] [CONS] Cons 07/31/25 13:57 Ordered Stat Chest XR -- portable [XR chest portable] Stat Exams 07/31/25 11:53 Completed Hip XR left minimum 2 views [XR hip LT 2-3V w/pelvis] Exams 07/31/25 11:52 Completed Stat POCUS Point of Care (ER Only) Stat Exams 07/31/25 13:47 Ordered CBC [Complete Blood Count Auto Diff] Stat Lab 07/31/25 12:04 Completed Complete Blood Count Auto Diff AMLAB Lab 08/01/25 06:00 Ordered Comprehensive Metabolic Panel AMLAB Lab 08/01/25 06:00 Ordered Comprehensive Metabolic Panel Stat Lab 07/31/25 12:04 Completed HIV Combo Stat Lab 07/31/25 12:04 Completed Hepatitis C Ab Qual. W/ RFX Stat Lab 07/31/25 12:04 Received Lactic Acid Stat Lab 07/31/25 12:04 Completed Lipase Stat Lab 07/31/25 12:04 Completed Magnesium AMLAB Lab 08/01/25 06:00 Ordered Magnesium Stat Lab 07/31/25 12:04 Completed Trop I [Troponin I] Stat Lab 07/31/25 12:04 Completed Troponin I Q3H Lab 07/31/25 15:00 Ordered Troponin I Q3H Lab 07/31/25 18:00 Ordered Urinalysis (cathed specimen) Routine Lab 07/31/25 13:25 Completed CA echo doppler complete Routine Y 07/31/25 14:05 Ordered Medical Decision Narrative: patient is a 85-year-old female presenting to the emergency department for evaluation of left hip pain after a fall. Patient is hemodynamically stable and nontoxic-appearing upon arrival, afebrile. Differential diagnosis includes hip fracture, among others. Workup will be conducted with hematologic labs, specific imaging, provocative tests. Initial inventions include crystalloid bolus, analgesics, antibiotics, etc.. Initial workup reviewed by me hematologic labs are remarkable for white count of 16.3. Hemoglobin and hematocrit are normal. Sodium was 134 BUN was 20 creatinine was 0.8, troponin was 0.03, patient has no chest pain or shortness of breath. She does have a breathing pattern that sounds wheezy but states that is normal for her.Hip x-ray showed left proximal femur with impaction superior and lateral displacement. I talked to Dr. Burks about this and he said as long as the hospitalist is okay dealing with her past medical history that he was okay with admitting. Patient did also have a chest x-ray that showed mild cardiomegaly and hyperinflation of bilateral lungs. Patient did have orders for CT of head neck and she cried when she got back to radiology and she declined saying she did not want these and did not hit her head and would not do them. <Josemanuel Dowell MD - Last Filed: 07/31/25 14:05> Vital Signs: 07/31/25 11:45 07/31/25 11:54 07/31/25 12:01 Temperature 97.9 F Temperature Source Oral Pulse Rate 86 86 Pulse Rate [Apical] 85 Respiratory Rate 20 Blood Pressure 144/121 H 178/64 H Blood Pressure [Right Arm] 144/121 H Blood Pressure Mean Blood Pressure Mean [Right Arm] 128 Blood Pressure Source [Right Arm] Automatic Cuff Blood Pressure Position [Right Arm] Sitting 02 Sat by Pulse Oximetry 96 97 97 Oxygen Delivery Method Room Air Room Air Room Air 07/31/25 12:42 07/31/25 13:02 07/31/25 13:32 Temperature Temperature Source Pulse Rate 87 87 Pulse Rate [Apical] Respiratory Rate Blood Pressure 157/64 H 166/71 H 115/62 Blood Pressure [Right Arm] Blood Pressure Mean 88 Blood Pressure Mean [Right Arm] Blood Pressure Source [Right Arm] Blood Pressure Position [Right Arm] 02 Sat by Pulse Oximetry 97 94 L Oxygen Delivery Method Room Air Room Air Lab Data Lab Results 07/31/25 12:04: WBC 16.3 H, RBC 3.86 L, Hgb 12.9, Hct 38.9, MCV 100.8 H, MCH 33.4 H, MCHC 33.2, RDW 12.3, Plt Count 271, MPV 9.5, Neut % (Auto) 83.4 H, Lymph % (Auto) 7.9 L, [place] % (Auto) 7.7, Eos % (Auto) 0.2, Baso % (Auto) 0.4, Neut # (Auto) 13.6 H, Lymph # (Auto) 1.3, [place] # (Auto) 1.3 H, Eos # (Auto) 0.0, Baso # (Auto) 0.1, Sodium 134 L, Potassium 4.7, Chloride 105, Carbon Dioxide 27, Anion Gap 6.7, BUN 20 H, Creatinine 0.80, Estimated Creat Clear 32, Estimated GFR 68, Est GFR ( Amer) 82, Glucose 104 H, Lactate 1.3, Calcium 8.7, Magnesium 2.2, Total Bilirubin 0.8, AST 46 H, ALT 23, Alkaline Phosphatase 63, Troponin I 0.03, Total Protein 7.1, Albumin 4.2, Globulin 2.9, Albumin/Globulin Ratio 1.4, Lipase 65, HIV Ag/Ab Combo Qual Negative 07/31/25 13:25: Urine Color Yellow, Urine Appearance Clear, Urine pH 7.5, Ur Specific [place] 1.015, Urine Protein Negative, Urine Glucose (UA) Negative, Urine Ketones Negative, Urine Blood Negative, Urine Nitrate Negative, Urine Bilirubin Negative, Urine Urobilinogen 0.2, Ur Leukocyte Esterase Negative, Urine RBC None, Urine WBC None, Ur Squamous Epith Cells Occasional, Urine Bacteria None Orders (Tests/Meds): ED MEDICATIONS Generic Name Dose Route Start Last Admin Trade Name Freq PRN Reason Stop Dose Admin Hydrocodone Bitart/Acetaminophen 1 tab 07/31/25 13:57 Hydrocodone/Apap 5/325 Mg Tablet PO 08/30/25 13:56 Q4HP PRN Mild to Moderate Pain (1-6) Hydrocodone Bitart/Acetaminophen 2 tab 07/31/25 13:57 Hydrocodone/Apap 5/325 Mg Tablet PO 08/30/25 13:56 Q4HP PRN Moderate to Severe Pain (4-10) Discontinued Medications Generic Name Dose Route Start Last Admin Trade Name Freq PRN Reason Stop Dose Admin Acetaminophen 1,000 mg 07/31/25 11:57 07/31/25 12:34 Acetaminophen 1,000mg/100ml Vial IV 07/31/25 11:58 1,000 mg ONCE ONE Administration Bupivacaine HCl 5 mg 07/31/25 13:27 07/31/25 13:41 Bupivacaine 0.25% 10ml Inj IJ 07/31/25 13:28 5 mg ONCE ONE Administration Buspirone HCl 20 mg 07/31/25 12:38 07/31/25 12:53 Buspirone Hcl 10 Mg Tablet PO 07/31/25 12:39 20 mg ONCE ONE Administration Lidocaine HCl 20 ml 07/31/25 13:27 07/31/25 13:40 Lidocaine 1% 20ml Mdv IJ 07/31/25 13:28 20 ml ONCE ONE Administration Morphine Sulfate 4 mg 07/31/25 12:08 07/31/25 12:34 Morphine 4mg/Ml Syringe IV 07/31/25 12:09 4 mg ONCE ONE Administration Ondansetron HCl 4 mg 07/31/25 12:08 07/31/25 12:34 Ondansetron 4mg/2ml Vial IV 07/31/25 12:09 4 mg ONCE ONE Administration ORDERS Category Date Time Status Cardiology Consult [Consult to Cardiology] [CONS] Cons 07/31/25 14:04 Active Routine Ortho Consult [Consult to Orthopedic Surgery] [CONS] Cons 07/31/25 13:57 Ordered Stat Chest XR -- portable [XR chest portable] Stat Exams 07/31/25 11:53 Completed Hip XR left minimum 2 views [XR hip LT 2-3V w/pelvis] Exams 07/31/25 11:52 Completed Stat POCUS Point of Care (ER Only) Stat Exams 07/31/25 13:47 Ordered CBC [Complete Blood Count Auto Diff] Stat Lab 07/31/25 12:04 Completed Complete Blood Count Auto Diff AMLAB Lab 08/01/25 06:00 Ordered Comprehensive Metabolic Panel AMLAB Lab 08/01/25 06:00 Ordered Comprehensive Metabolic Panel Stat Lab 07/31/25 12:04 Completed HIV Combo Stat Lab 07/31/25 12:04 Completed Hepatitis C Ab Qual. W/ RFX Stat Lab 07/31/25 12:04 Received Lactic Acid Stat Lab 07/31/25 12:04 Completed Lipase Stat Lab 07/31/25 12:04 Completed Magnesium AMLAB Lab 08/01/25 06:00 Ordered Magnesium Stat Lab 07/31/25 12:04 Completed Trop I [Troponin I] Stat Lab 07/31/25 12:04 Completed Troponin I Q3H Lab 07/31/25 15:00 Ordered Troponin I Q3H Lab 07/31/25 18:00 Ordered Urinalysis (cathed specimen) Routine Lab 07/31/25 13:25 Completed CA echo doppler complete Routine Y 07/31/25 14:05 Ordered Procedures <Josemanuel Dowell MD - Last Filed: 07/31/25 14:05> Nerve Block Nerve Block 1: Time out performed: Yes Local Anesthetic: lidocaine 1% and bupivacaine 0.25% Amount of anesthesia used (mL): 10 Side: Left Nerve Blocks: other (Fascia iliaca block) Procedure Successful: Yes Patient Tolerated Procedure: well Complications: none Critical Care <Donna Beltran (ED), [employer] - Last Filed: 07/31/25 14:16> Critical Care Time Critical Care Time: No
[2025-07-31 12:22] LABS: Albumin Level 4.2 g/dl (3.5-5.0); Chloride 105 mmol/L (98-107); Potassium 4.7 mmoL/L (3.5-5.1); Sodium 134 mmol/L (136-145)
[2025-07-31 12:25] LABS: Alanine Aminotransferase 23 U/L (12-78); Albumin/Globulin Ratio 1.4 (1.1-1.8); Alkaline Phosphatase 63 U/L (38-126); Anion Gap 6.7 mEq/L (5-15); Aspartate Amino Transferase 46 U/L (14-36); Bilirubin,Total 0.8 mg/dl (0.2-1.3); Blood Urea Nitrogen 20 mg/dl (7-17); Calcium 8.7 mg/dl (8.4-10.2); Carbon Dioxide 27 mmol/L (22.0-30.0); Creatinine Clearance Estimated 32 mL/min (50-200); Creatinine,Serum 0.80 mg/dl (0.52-1.04); Estimated Glomerular Filt Rate 68 ml/min (>60); GFR (African American) 82 ML/MIN (>60); Globulin 2.9 g/dL (1.3-3.2); Glucose 104 mg/dl (74-100); Lipase 65 U/L (23-300); Total Protein,Serum 7.1 g/dl (6.3-8.2)
[2025-07-31 12:26] LABS: Magnesium 2.2 mg/dl (1.6-2.3)
[2025-07-31] MEDS: ACETAMINOPHEN 1,000MG/100ML VIAL 1000 MG IV (12:34)
[2025-07-31] MEDS: ONDANSETRON 4MG/2ML VIAL 4 MG IV (12:34)
[2025-07-31] MEDS: MORPHINE 4MG/ML SYRINGE 4 MG IV (12:34)
[2025-07-31 12:37] LABS: Troponin I 0.03 ng/ml (0.00-0.034)
[2025-07-31] MEDS: BUSPIRONE HCL 10 MG TABLET 20 MG PO ×2 (12:53→21:53)
[2025-07-31 13:35] LABS: Microscopic,Cath URINE MICROSCOPIC (MICROSCOPIC)
--- NOTE | 2025-07-31 13:37 | PC.NURSE ---
Temp sensing tucker catheter was placed per Donna LOWRY order. Pt was a difficult tucker catheter placement. Sample from tucker catheter was sent down post catheter placement
[2025-07-31 13:38] LABS: Appearance,Urine/Cath CLEAR (Clear); Bilirubin,Cath Negative (Negative); Blood, Urine/Cath Negative (Negative); Color,Urine/Cath YELLOW (Yellow); Glucose,Urine/Cath (UA) Negative (Negative); Ketones,Urine/Cath Negative (Negative); Leukocyte Esterase,Cath Negative (Negative); Nitrate,Cath Negative (Negative); PH,Urine/Cath 7.5 (5.0-8.5); Protein,Urine/Cath Negative (Negative); Specific Gravity, Urine/Cath 1.015 (1.005-1.030); Urobilinogen,Cath 0.2 EU/dl (0.2)
[2025-07-31] MEDS: LIDOCAINE 1% 20ML MDV 20 ML IJ (13:40)
[2025-07-31] MEDS: BUPIVACAINE 0.25% 10ML INJ 5 MG IJ (13:41)
--- NOTE | 2025-07-31 13:46 | PC.NURSE ---
Patient belongings bagged. Spouse takes belongings to car. Fall socks placed onto patient.
[2025-07-31 13:47] LABS: Squamous Epithelial Ur./Cath Occasional #/hpf (0-5)
--- NOTE | 2025-07-31 14:02 | EXP.HP ---
History of Present Illness *Admission Date: 07/31/25 *Reason for visit:: fall, left leg pain *History of present illness: Ms. 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 She presented to the ER after a fall at home. Sustained left hip pain. Count elevated at 16. Imaging obtained showing proximal left femur fracture. Discussed case with ER, request admission for further management. Stable on room air. Pain better after nerve block. assists with history. [facility] Disclaimer: The information contained in this section may have been updated after the patient was seen, as this information can be updated by other users. Medical History Anxiety History of stroke Hypertension Surgical History History of hysterectomy Family History Other No significant family history Social History Smoking Status: Never smoker alcohol intake: never current occupational status: retired Travel in the last 8 weeks?: None Have you lived/traveled outside US in past 30 days?: No Contact w/someone who lives/traveled outside US past 30 days?: No Exposure to someone with infectious disease in past 14 days?: No Do you have a fever (greater than 100.4 F or 38 C)?: No Have you tested positive for COVID-19?: No Exposed to someone with COVID-19 in past 14 days?: No Do you have a sore throat?: No Do you have a cough?: No Do you have any weakness?: No Do you have any diarrhea?: No Are you experiencing any unusual bleeding?: No Do you have any muscle aches/pain?: No Do you have any abdominal pain?: No Are you experiencing loss of taste or smell?: No Other Medical History Have you received the Flu Vaccine for this season: No Have you received the Pneumonia Vaccine: Yes Review of Systems Review of Systems Review of systems (narrative): 14 point review of systems performed, pertinent positives and negatives as per HPI Meds Home Medications and Allergies Home Medications ?Medication ?Instructions ?Recorded ?Confirmed ?Type alendronate 70 mg tablet 70 mg PO WEEKLY 03/23/24 07/31/25 History amlodipine 5 mg tablet 5 mg PO DAILY 03/23/24 07/31/25 History dextromethorphan IR 45 1 tab PO BID 03/23/24 07/31/25 History mg-bupropion ER 105 mg biphasic tablet (Auvelity) aspirin 81 mg chewable tablet 81 mg PO DAILY 04/07/24 07/31/25 History buspirone 10 mg tablet 20 mg PO TID 07/31/25 07/31/25 History calcium 600 mg capsule 600 mg PO DAILY 07/31/25 07/31/25 History btxcdgmxlzlv-zasjhmc-yrpis acid 1 tab PO DAILY 07/31/25 07/31/25 History 400 mcg-vitamin K 80 mcg tablet (Multi For Her 50 Plus) vit C 250 mg-vit E 90 mg-zinc 40 1 tab PO BID 07/31/25 07/31/25 History mg-copper 1 cs-hlxgsy-vdfdgl capsule (PreserVision AREDS-2) New Prescriptions to Start Prescriptions: Allergies Allergy/AdvReac Type Severity Reaction Status Date / Time Penicillins Allergy Hives Verified 07/31/25 15:35 Exam Data for Last 24 hours Vital signs and Labs for Last 24 Hours: Temp Pulse Resp BP Pulse Ox O2 Del Method 97.9 F 87 20 115/62 94 L Room Air 07/31/25 11:45 07/31/25 13:02 07/31/25 11:45 07/31/25 13:32 07/31/25 13:02 07/31/25 13:02 Laboratory Results - last 24 hr 07/31/25 12:04: WBC 16.3 H, RBC 3.86 L, Hgb 12.9, Hct 38.9, MCV 100.8 H, MCH 33.4 H, MCHC 33.2, RDW 12.3, Plt Count 271, MPV 9.5, Neut % (Auto) 83.4 H, Lymph % (Auto) 7.9 L, [place] % (Auto) 7.7, Eos % (Auto) 0.2, Baso % (Auto) 0.4, Neut # (Auto) 13.6 H, Lymph # (Auto) 1.3, [place] # (Auto) 1.3 H, Eos # (Auto) 0.0, Baso # (Auto) 0.1, Sodium 134 L, Potassium 4.7, Chloride 105, Carbon Dioxide 27, Anion Gap 6.7, BUN 20 H, Creatinine 0.80, Estimated Creat Clear 32, Estimated GFR 68, Est GFR ( Amer) 82, Glucose 104 H, Lactate 1.3, Calcium 8.7, Magnesium 2.2, Total Bilirubin 0.8, AST 46 H, ALT 23, Alkaline Phosphatase 63, Troponin I 0.03, Total Protein 7.1, Albumin 4.2, Globulin 2.9, Albumin/Globulin Ratio 1.4, Lipase 65, HIV Ag/Ab Combo Qual Negative 07/31/25 13:: Urine Color Yellow, Urine Appearance Clear, Urine pH 7.5, Ur Specific [place] 1.015, Urine Protein Negative, Urine Glucose (UA) Negative, Urine Ketones Negative, Urine Blood Negative, Urine Nitrate Negative, Urine Bilirubin Negative, Urine Urobilinogen 0.2, Ur Leukocyte Esterase Negative, Urine RBC None, Urine WBC None, Ur Squamous Epith Cells Occasional, Urine Bacteria None I & O for Last 24 hours: Intake & Output 07/28/25 07/29/25 07/30/25 07/31/25 23:59 23:59 23:59 23:59 Output Total 600 / 600 Balance -600 / -600 Weight 49.895 kg Constitutional Constitutional: mild distress, thin and cooperative *Routine HEENT Exam Head: Present normocephalic Eye: Present EOMI and PERRL ENT: Present mucous membranes moist *Routine Neck Exam Neck: Present supple; Absent lymphadenopathy *Routine Respiratory Exam Respiratory: Present CTA bilaterally; Absent rhonchi, wheezes or crackles Comments: Transmitted upper airway sounds/stridor *Routine Cardiovascular Exam Cardiovascular: Present RRR *Routine Abdominal Exam Abdominal: Present soft and normoactive bowel sounds; Absent tenderness *Routine Rectal Exam Rectal:: deferred *Routine Genitalia Exam Genitalia:: deferred *Routine Extremities Exam Extremities: Absent cyanosis, clubbing or edema Comments: Left leg flexed under right. Skin tear to right ankle *Routine Skin Exam Skin: Present warm and wounds (Right lower leg); Absent rash *Routine Neurological Exam Neurological: Present alert and moving all extremities; Absent altered mental status Comments: Oriented to self Assessment and Plan *Assessment and plan (1) Closed intertrochanteric fracture of left hip: Status: Acute Category: Medical Code(s): S72.142A - Displaced intertrochanteric fracture of left femur, initial encounter for closed fracture (2) Aortic insufficiency: Status: Acute Category: Medical Code(s): I35.1 - Nonrheumatic aortic (valve) insufficiency (3) Hypertension: Status: Acute Qualifiers: Hypertension type: primary hypertension Qualified Code(s): I10 - Essential (primary) hypertension Category: Medical Code(s): I10 - Essential (primary) hypertension (4) Anxiety: Status: Acute Category: Medical Code(s): F41.9 - Anxiety disorder, unspecified (5) Recurrent falls: Status: Acute Category: Medical Code(s): R29.6 - Repeated falls (6) History of stroke: Status: Acute Category: Medical Code(s): Z86.73 - Personal history of transient ischemic attack (TIA), and cerebral infarction without residual deficits Plan 85-year-old female who fell getting out of her car. Sustained left proximal femur fracture. Discussed case with ER physician, request admission for surgical fixation. Agreed to admit for further care. Orthopedics consulted. Will have cardiology evaluate aortic insufficiency. Plan for surgery tomorrow. Problems addressed as follows: Mechanical fall from standing height Proximal left femur fracture -Per review of imaging, has a closed intertrochanteric fracture left hip. Patient's pain well-controlled after nerve block. - Continue IV morphine 4 mg as needed for severe pain, hydrocodone 5 mg as needed for moderate pain, Toradol for moderate to severe pain. 30 mg IV every 6 hours. Monitor for toxicity - Discussed case with orthopedics, plan for surgery tomorrow. - Note, has stridor on exam. states this is baseline for patient has been present for years. Worse when she is anxious. Does not have any respiratory distress however. Sats discussed with anesthesia, - white count 16, hemoglobin 12.9, urine not consistent with UTI. No focal sign of infection. Suspect the marginalization from fall. Kidney function normal with BUN 20, creatinine 0.8. Repeat CBC, CMP, magnesium ordered for the morning Aortic insufficiency Hypertension - Echo from March 2024 with the following: Low-normal LV systolic function (LVEF 50%). Normal LV dimensions (LVEDd=5.8 cm. LVESd=4.3 cm). Asynchronous septum. Mild RV dilation. Moderate to severe AI. Mild MR, mild TR, mild PI. - Repeat echo to monitor stability. Baseline EKG. Cardiology to consult for preop optimization. It is my opinion that the patient has elevated risk however, recommend proceeding with surgery and caution with intraoperative fluids. - Olding aspirin, hold amlodipine in the perioperative setting. Anxiety: Continue Auvelity 1 tab twice daily. Continue BuSpar 20 mg 3 times a day. Full code Initiate anticoagulation for DVT prophylaxis after surgery. Regular diet, n.p.o. midnight
--- NOTE | 2025-07-31 14:05 | CA_ITS ---
APPROVED REPORT EXAM: Comprehensive 2D, Doppler, and color-flow Echocardiogram [employer] Operator: Kassy Modi RVT Ht: 5 ft 2 in Wt: 110lbs BSA: 1.48 BP: 115/62 mmHg Indications: PRE-OP,CONGESTIVE HEART FAILURE 2D Dimensions IVSd 2.03 cm F: 0.6-1.0 LVEF (Visual) 63.70 % PWd 1.17 cm F: 0.6 - 1.0 LA Volume 29.10 mL LVDd 4.42 cm F: 3.9 - 5.3 LA Volume Index 19.66 mL/m2 (M/F) 16-34 LVDs 2.90 cm F: 2.2 - 3.5 M-Mode Dimensions LA Diam 2.12 cm (1.9-4.0) TAPSE 1.31 (<1.7) LV Diastology E Decel Time 150 (160-240 msec) E/A Ratio 0.7 Aortic Valve PETER Index 2.20 cm2/m2 AoV Peak Sathya. 160.0 (50-130 cm/s) AI PHT 1045.00 ms AO Peak GR. 10.20 mmHg AO Mean GR. 5.60 (<5 mmHg) AO VTI 24.9 (18-25 cm) PETER (VTI) 3.34 (2.5-4.5 cm2) Mitral Valve MV E Max Sathya. 54.0 (40-130 cm/s) MV A Velocity 82.0 (40-130 cm/s) E/A Ratio 0.66 MV PHT 44.0 ms Tricuspid Valve TR P. Velocity 202.00 cm/s RAP Estimate 8.00 mmHg RVSP 24.40 mmHg Left Ventricle The left ventricle is normal size. Left ventricular systolic function is low normal. There is increased left ventricular wall thickness. There is normal LV segmental wall motion. The left ventricular diastolic function is indeterminate. LVEF is 50% Right Ventricle The right ventricle is mildly dilated. The right ventricular systolic function is normal. Atria Left atrium is mildly dilated. Right atrium is mildly dilated. There is no color Doppler evidence of interatrial shunt. Aortic Valve The aortic valve is mildly thickened. There is no hemodynamically significant aortic valvular stenosis. Severe aortic regurgitation is present. Mitral Valve The mitral valve is normal in structure. No evidence of mitral valve stenosis. Trace mitral regurgitation is present. Tricuspid Valve The tricuspid valve leaflets are thin and pliable. Trace tricuspid regurgitation. There is insufficient TR jet to estimate RVSP. Pulmonic Valve The pulmonary valve is grossly normal in structure. Trace pulmonic valve regurgitation is present. Great Vessels The aortic root is normal in size. The ascending aorta is mildly dilated, measuring 3.8 cm in diameter. IVC is normal in size and collapses >50% with inspiration. Pericardium There is a trivial, posterior pericardial effusion present. No echo indications of tamponade. Other Information Study Quality: Fair Conclusion Low-normal LV size and systolic function. Mild RV dilation with normal RV function. Mild biatrial dilation. Severe AI. Ascending aorta is mildly dilated, measuring 3.8 cm in diameter. Trivial, posterior pericardial effusion present. No echo indications of tamponade. In the setting of severe AI, further evaluation with cardiac MRI (cardiomyopathy + AV protocol) is suggested. Electronically signed by : Anila Reyes MD 08/01/2025 12:15:55
--- NOTE | 2025-07-31 14:05 | PC.NURSE ---
SUPERVISOR TUMBLERS NOTIFIED OF ADMISSION
--- NOTE | 2025-07-31 14:27 | PC.NURSE ---
received report from frank ch rn
--- NOTE | 2025-07-31 14:27 | PC.NURSE ---
Report called to Iona MCCARTHY, pending transport
--- NOTE | 2025-07-31 14:48 | EXP.CARD.CON ---
History of Present Illness History of Present Illness Consult date: 07/31/25 Requesting physician: Jimmy Mitchell Chief complaint: Fall History of present illness: Caity Villar is an 85-year-old white female with a past medical history of moderate to severe aortic insufficiency and hypertension who presented to emergency department status post fall with left hip pain. Labs are as follow: WBC 16.3, hemoglobin 12.9, sodium 134, potassium 4.7, BUN 20, creatinine 0.8, troponin 0.03. Analysis negative. Chest x-ray shows mild cardiomegaly with bilateral hyperinflation present. Hip x-ray shows a fracture of the left proximal femur with impaction and superior and lateral displacement of the distal fracture fragment. Vitals are stable. Patient maintaining oxygen saturation on room air. Cardiology was asked to evaluate for a preoperative risk assessment. Echocardiogram is pending. [facility] Disclaimer: The information contained in this section may have been updated after the patient was seen, as this information can be updated by other users. Medical History Anxiety History of stroke Hypertension Surgical History History of hysterectomy Family History Other No significant family history Social History Smoking Status: Never smoker alcohol intake: never current occupational status: retired Travel in the last 8 weeks?: None Have you lived/traveled outside US in past 30 days?: No Contact w/someone who lives/traveled outside US past 30 days?: No Exposure to someone with infectious disease in past 14 days?: No Do you have a fever (greater than 100.4 F or 38 C)?: No Have you tested positive for COVID-19?: No Exposed to someone with COVID-19 in past 14 days?: No Do you have a sore throat?: No Do you have a cough?: No Do you have any weakness?: No Do you have any diarrhea?: No Are you experiencing any unusual bleeding?: No Do you have any muscle aches/pain?: No Do you have any abdominal pain?: No Are you experiencing loss of taste or smell?: No Review of Systems Review of Systems Review of systems:: pertinent systems reviewed and negative unless documented below Exam Data for Last 24 hours Vital signs and Labs for Last 24 Hours: Temp Pulse Resp BP Pulse Ox O2 Del Method 97.9 F 87 20 115/62 94 L Room Air 07/31/25 11:45 07/31/25 13:02 07/31/25 11:45 07/31/25 13:32 07/31/25 13:02 07/31/25 13:02 Laboratory Results - last 24 hr 07/31/25 12:04: WBC 16.3 H, RBC 3.86 L, Hgb 12.9, Hct 38.9, MCV 100.8 H, MCH 33.4 H, MCHC 33.2, RDW 12.3, Plt Count 271, MPV 9.5, Neut % (Auto) 83.4 H, Lymph % (Auto) 7.9 L, [place] % (Auto) 7.7, Eos % (Auto) 0.2, Baso % (Auto) 0.4, Neut # (Auto) 13.6 H, Lymph # (Auto) 1.3, [place] # (Auto) 1.3 H, Eos # (Auto) 0.0, Baso # (Auto) 0.1, Sodium 134 L, Potassium 4.7, Chloride 105, Carbon Dioxide 27, Anion Gap 6.7, BUN 20 H, Creatinine 0.80, Estimated Creat Clear 32, Estimated GFR 68, Est GFR ( Amer) 82, Glucose 104 H, Lactate 1.3, Calcium 8.7, Magnesium 2.2, Total Bilirubin 0.8, AST 46 H, ALT 23, Alkaline Phosphatase 63, Troponin I 0.03, Total Protein 7.1, Albumin 4.2, Globulin 2.9, Albumin/Globulin Ratio 1.4, Lipase 65, HIV Ag/Ab Combo Qual Negative 07/31/25 13:25: Urine Color Yellow, Urine Appearance Clear, Urine pH 7.5, Ur Specific [place] 1.015, Urine Protein Negative, Urine Glucose (UA) Negative, Urine Ketones Negative, Urine Blood Negative, Urine Nitrate Negative, Urine Bilirubin Negative, Urine Urobilinogen 0.2, Ur Leukocyte Esterase Negative, Urine RBC None, Urine WBC None, Ur Squamous Epith Cells Occasional, Urine Bacteria None I & O for Last 24 hours: Intake & Output 07/28/25 07/29/25 07/30/25 07/31/25 23:59 23:59 23:59 23:59 Output Total 600 / 600 Balance -600 / -600 Weight 110 lb Constitutional Constitutional: no acute distress *Routine Respiratory Exam Respiratory: Present CTA bilaterally and symmetric chest movement *Routine Cardiovascular Exam Cardiovascular: Present RRR, Normal S1 and Normal S2 *Routine Abdominal Exam Abdominal: Present soft and normoactive bowel sounds; Absent tenderness *Routine Extremities Exam Extremities: Present full ROM and normal capillary refill; Absent edema Comments: tenderness noted to left hip *Routine Skin Exam Skin: Present intact, dry and warm Detailed Neck Exam: Thyroids Thyroid: Absent bruit Meds Home Medications and Allergies Home Medications ?Medication ?Instructions ?Recorded ?Confirmed ?Type alendronate 70 mg tablet 70 mg PO WEEKLY 03/23/24 04/07/24 History amlodipine 5 mg tablet 5 mg PO DAILY 03/23/24 04/07/24 History buspirone 15 mg tablet 15 mg PO TID 03/23/24 04/07/24 History dextromethorphan IR 45 1 tab PO BID 03/23/24 04/07/24 History mg-bupropion ER 105 mg biphasic tablet (Auvelity) aspirin 81 mg chewable tablet 81 mg PO DAILY 04/07/24 04/07/24 History New Prescriptions to Start Prescriptions: Allergies Allergy/AdvReac Type Severity Reaction Status Date / Time Penicillins Allergy Hives Verified 04/07/24 09:53 Assessment and Plan *Assessment and plan (1) Aortic insufficiency: Status: Acute Category: Medical Code(s): I35.1 - Nonrheumatic aortic (valve) insufficiency (2) Closed hip fracture: Status: Acute Category: Medical Code(s): S72.009A - Fracture of unspecified part of neck of unspecified femur, initial encounter for closed fracture Plan History of moderate to severe aortic insufficiency Closed hip fracture- left Echo pending EKG is SR with Sinus arrhythmia rate 85, negative for stemi Trop 0.03
--- NOTE | 2025-07-31 15:07 | PC.NURSE ---
pt arrived to the floor via stretcher with this nurse and from er.
--- NOTE | 2025-07-31 15:31 | PC.NURSE ---
dr scherer at bedside
[2025-07-31 16:02] LABS: Troponin I 0.03 ng/ml (0.00-0.034)
[2025-07-31] MEDS: HYDROCODONE/APAP 5/325 MG TABLET 1 TAB PO (17:07)
[2025-07-31 19:06] LABS: Troponin I 0.02 ng/ml (0.00-0.034)
--- NOTE | 2025-07-31 19:22 | EXP.ORTH.CON ---
History of Present Illness *Admission Date: 07/31/25 *Reason for visit:: Left hip fracture *History of present illness: 85-year-old female who has a history of aortic insufficiency hypertension anxiety recurrent falls and a history of CVA who suffered a fall. She also suffered a intertrochanteric hip fracture on the left side. She was admitted to the hospitalist service. Orthopedics was consulted regarding definitive treatment options for her left hip fracture. [facility] Disclaimer: The information contained in this section may have been updated after the patient was seen, as this information can be updated by other users. Medical History Anxiety History of stroke Hypertension Surgical History History of hysterectomy Family History Other No significant family history Social History (Updated 07/31/25 @ 15:43 by Iona Douglass RN) Smoking Status: Never smoker alcohol intake: never current occupational status: retired Travel in the last 8 weeks?: None Have you lived/traveled outside US in past 30 days?: No Contact w/someone who lives/traveled outside US past 30 days?: No Exposure to someone with infectious disease in past 14 days?: No Do you have a fever (greater than 100.4 F or 38 C)?: No Have you tested positive for COVID-19?: No Exposed to someone with COVID-19 in past 14 days?: No Do you have a sore throat?: No Do you have a cough?: No Do you have any weakness?: No Do you have any diarrhea?: No Are you experiencing any unusual bleeding?: No Do you have any muscle aches/pain?: No Do you have any abdominal pain?: No Are you experiencing loss of taste or smell?: No Meds Home Medications and Allergies Home Medications ?Medication ?Instructions ?Recorded ?Confirmed ?Type alendronate 70 mg tablet 70 mg PO WEEKLY 03/23/24 07/31/25 History amlodipine 5 mg tablet 5 mg PO DAILY 03/23/24 07/31/25 History dextromethorphan IR 45 1 tab PO BID 03/23/24 07/31/25 History mg-bupropion ER 105 mg biphasic tablet (Auvelity) aspirin 81 mg chewable tablet 81 mg PO DAILY 04/07/24 07/31/25 History buspirone 10 mg tablet 20 mg PO TID 07/31/25 07/31/25 History calcium 600 mg capsule 600 mg PO DAILY 07/31/25 07/31/25 History mbqlalzgcyne-uiyohqf-xiacx acid 1 tab PO DAILY 07/31/25 07/31/25 History 400 mcg-vitamin K 80 mcg tablet (Multi For Her 50 Plus) vit C 250 mg-vit E 90 mg-zinc 40 1 tab PO BID 07/31/25 07/31/25 History mg-copper 1 iy-yxhait-rynfsx capsule (PreserVision AREDS-2) New Prescriptions to Start Prescriptions: Allergies Allergy/AdvReac Type Severity Reaction Status Date / Time Penicillins Allergy Hives Verified 07/31/25 15:35 Ortho Exam (Inpt) Vital signs and Labs for Last 24 Hours: Temp Pulse Resp BP Pulse Ox O2 Del Method 98.3 F 84 18 139/62 94 L Room Air 07/31/25 15:23 07/31/25 16:00 07/31/25 16:00 07/31/25 16:00 07/31/25 16:00 07/31/25 17:15 Laboratory Results - last 24 hr 07/31/25 12:04: WBC 16.3 H, RBC 3.86 L, Hgb 12.9, Hct 38.9, MCV 100.8 H, MCH 33.4 H, MCHC 33.2, RDW 12.3, Plt Count 271, MPV 9.5, Neut % (Auto) 83.4 H, Lymph % (Auto) 7.9 L, [place] % (Auto) 7.7, Eos % (Auto) 0.2, Baso % (Auto) 0.4, Neut # (Auto) 13.6 H, Lymph # (Auto) 1.3, [place] # (Auto) 1.3 H, Eos # (Auto) 0.0, Baso # (Auto) 0.1, Sodium 134 L, Potassium 4.7, Chloride 105, Carbon Dioxide 27, Anion Gap 6.7, BUN 20 H, Creatinine 0.80, Estimated Creat Clear 32, Estimated GFR 68, Est GFR ( Amer) 82, Glucose 104 H, Lactate 1.3, Calcium 8.7, Magnesium 2.2, Total Bilirubin 0.8, AST 46 H, ALT 23, Alkaline Phosphatase 63, Troponin I 0.03, Total Protein 7.1, Albumin 4.2, Globulin 2.9, Albumin/Globulin Ratio 1.4, Lipase 65, HIV Ag/Ab Combo Qual Negative 07/31/25 13:25: Urine Color Yellow, Urine Appearance Clear, Urine pH 7.5, Ur Specific [place] 1.015, Urine Protein Negative, Urine Glucose (UA) Negative, Urine Ketones Negative, Urine Blood Negative, Urine Nitrate Negative, Urine Bilirubin Negative, Urine Urobilinogen 0.2, Ur Leukocyte Esterase Negative, Urine RBC None, Urine WBC None, Ur Squamous Epith Cells Occasional, Urine Bacteria None 07/31/25 14:46: Troponin I 0.03 07/31/25 18:00: Troponin I 0.02 I & O for Labs for Last 24 Hours: Intake & Output 07/28/25 07/29/25 07/30/25 07/31/25 23:59 23:59 23:59 23:59 Intake Total 240 / 240 Output Total 700 / 700 Balance -460 / -460 Weight 113 lb 9 oz Additional findings:: Left hip is shortened and externally rotated at rest. She has difficulty with any attempted range of motion of the hip in regards to groin pain. She is unable to move the leg secondary to fracture and pain. X-rays of the left hip show intertrochanteric hip fracture on the left. Results Labs 07/31/25 12:04 07/31/25 12:04 Labs: Abnormal lab results 07/31/25 Range/Units 12:04 WBC 16.3 H (4.8-10.8) K/mm3 RBC 3.86 L (4.20-5.40) M/mm3 MCV 100.8 H (81-99) fl MCH 33.4 H (27.0-31.2) pg Neut % (Auto) 83.4 H (37.0-80.0) % Lymph % (Auto) 7.9 L (10-50) % Neut # (Auto) 13.6 H (1.8-7.8) K/mm3 [place] # (Auto) 1.3 H (0.1-1.0) K/mm3 Sodium 134 L (136-145) mmol/L BUN 20 H (7-17) mg/dl Glucose 104 H (74-100) mg/dl AST 46 H (14-36) U/L H & H 12/ Range/Units 12:04 Hgb 12.9 (12.2-16.2) g/dL Hct 38.9 (37.0-47.0) % All other labs normal. Assessment and Plan *Assessment and plan (1) Closed intertrochanteric fracture of left hip: Status: Acute Category: Medical Code(s): S72.142A - Displaced intertrochanteric fracture of left femur, initial encounter for closed fracture Plan Patient admitted to the hospitalist service. Risk stratification for surgery undertaken.. Initial plan will be operative intervention with cephalomedullary nailing of the left proximal femur tomorrow. PROPOSED SURGERY: Cephalomedullary nailing left proximal femur the risks and benefits of the proposed surgery were discussed in depth with the patient. Potential complications including inherent risk of anesthesia, infection, neurovascular damage, DVT, and rare but real potential loss of limb or life were all reviewed. Patient voices understanding and seems to understand to my satisfaction and wishes to proceed with surgery. I gave them adequate time to ask any questions they have pertaining to this surgery and answered all of them to the best of my ability. I gave them no guarantees in regards to outcomes of this surgery.
[2025-07-31 21:47] LABS: Hepatitis C Ab Qual. W/ RFX NEGATIVE (Negative)
[2025-08-01] VITALS (23 sets, daily range): BP systolic 113–154; BP diastolic 39–88; PULSE 81–110; RESP 10–95; TEMP 36.6–38.5; O2SAT 84–99; BMI 19.5
[2025-08-01] MEDS: MORPHINE 4MG/ML SYRINGE 4 MG IV ×4 (01:45→21:40)
--- NOTE | 2025-08-01 01:52 | PC.NURSE ---
Pt noted be restless in bed by staff. On assessment, pt states yes when asked if she is in pain. Pt will not answer any other questions. Pt looking from right to left, breathing hard. Pt HR noted to be elevated to 100-110, other VS no change. Gini Olguin APRN notified and at bedside at this time.
--- NOTE | 2025-08-01 02:04 | CT_ITS ---
PROCEDURE INFORMATION: Exam: CT Head Without Contrast Exam date and time: 08/01/2025 2:20 AM Age: 85 years old Clinical indication: Altered mental status/memory loss; Additional info: Acute AMS TECHNIQUE: Imaging protocol: Computed tomography of the head without contrast. Radiation optimization: All CT scans at this facility use at least one of these dose optimization techniques: automated exposure control; mA and/or kV adjustment per patient size (includes targeted exams where dose is matched to clinical indication); or iterative reconstruction. COMPARISON: No relevant prior studies available. FINDINGS: Brain: Loss of cast-white differentiation along the medial right cerebellar hemisphere. Parenchymal atrophy. Few hypodensities are seen along the right basal ganglia. Gliosis/encephalomalacia along the left parietal lobe. Focal hypodensity along the left thalamus. Cerebral ventricles: Ex vacuo dilation of the ventricles and CSF fluid spaces. Paranasal sinuses: Visualized sinuses are unremarkable. No fluid levels. Mastoid air cells: Visualized mastoid air cells are well aerated. Bones: Unremarkable. No acute fracture. Soft tissues: Unremarkable. Other findings: Heavily calcified intracranial atherosclerotic disease. IMPRESSION: 1. Age-indeterminate infarct along the medial aspect of the right cerebellum (given density/attenuation it is likely subacute, although this is not definitive). 2. Age-indeterminate lacunar infarcts are seen bilaterally. Consider MRI for further assessment.
--- NOTE | 2025-08-01 02:39 | PC.NURSE ---
Patient transported via bed to CT scan @02:12am with this SRNA and Delmer MCCARTHY, arrived back to ICU unit from CT via bed @02:26am
[2025-08-01] MEDS: SODIUM CHLORIDE 775 ML IV (02:53)
[2025-08-01 03:17] LABS: Adenovirus,PCR Not Detected (NotDetected); Chlamydophila Pneumoniae, PCR Not Detected (NotDetected); Coronavirus 19, PCR Not Detected (NotDetected); Coronovirus HKU1,PCR Not Detected (NotDetected); Influenza A, PCR Not Detected (NotDetected); Influenza AH1, 2009 Not Detected (NotDetected); Influenza AH1, PCR Not Detected (NotDetected); Influenza AH3,PCR Not Detected (NotDetected); Influenza B, PCR Not Detected (NotDetected); Mycoplasma Pneumoniae, PCR Not Detected (NotDetected); Parainfluenza 1, PCR Not Detected (NotDetected); Parainfluenza 2, PCR Not Detected (NotDetected); Parainfluenza 3, PCR Not Detected (NotDetected); Parainfluenza 4, PCR Not Detected (NotDetected)
--- NOTE | 2025-08-01 03:20 | PC.NURSE ---
Temp sensing tucker plugged into monitor and pt temp registering 101.3. Pt flagging for sepsis risk at this time. Gini CAMP notified. States she will order IVF, respiratory panel and blood cultures at this time.
[2025-08-01 03:28] LABS: Hematocrit 35.3 % (37.0-47.0); Hemoglobin 11.9 g/dL (12.2-16.2); Immature Granulocytes % 0.3 %; Mean Corpuscular HGB Conc 33.7 g/dL (31.8-35.4); Mean Corpuscular Hemoglobin 33.7 pg (27.0-31.2); Mean Corpuscular Volume 100.0 fl (81-99); Nucleated Red Blood Cells % 0 %; Platelet Count 235 K/mm3 (142-424); Red Blood Count 3.53 M/mm3 (4.20-5.40); Red Cell Distribution Width-SD 45.2 fL; White Blood Count 6.9 K/mm3 (4.8-10.8)
[2025-08-01 03:53] LABS: Alanine Aminotransferase 26 U/L (12-78); Albumin Level 3.6 g/dl (3.5-5.0); Albumin/Globulin Ratio 1.3 (1.1-1.8); Alkaline Phosphatase 76 U/L (38-126); Anion Gap 7.9 mEq/L (5-15); Aspartate Amino Transferase 44 U/L (14-36); Bilirubin,Total 1.1 mg/dl (0.2-1.3); Blood Urea Nitrogen 22 mg/dl (7-17); Calcium 8.1 mg/dl (8.4-10.2); Carbon Dioxide 25 mmol/L (22.0-30.0); Chloride 102 mmol/L (98-107); Creatinine Clearance Estimated 33 mL/min (50-200); Creatinine,Serum 0.90 mg/dl (0.52-1.04); Estimated Glomerular Filt Rate 59 ml/min (>60); GFR (African American) 72 ML/MIN (>60); Globulin 2.8 g/dL (1.3-3.2); Glucose 122 mg/dl (74-100); Magnesium 1.9 mg/dl (1.6-2.3); Potassium 3.9 mmoL/L (3.5-5.1); Sodium 131 mmol/L (136-145); Total Protein,Serum 6.4 g/dl (6.3-8.2)
[2025-08-01 04:10] LABS: Procalcitonin 0.091 ng/mL (0.0-2.0)
--- NOTE | 2025-08-01 06:21 | PC.NURSE ---
Spoke with [facility] supervisor. States she will fax over pt records.
[2025-08-01] MEDS: OYSTER SHELL CALCIUM (ELEMENTAL) 500MG TAB 500 MG PO (08:47)
[2025-08-01] MEDS: CEFEPIME HCL 2 GM in 0.9 % SODIUM CHLORIDE 100 ML IV ×2 (08:47→22:00)
[2025-08-01] MEDS: BUSPIRONE HCL 10 MG TABLET 20 MG PO ×3 (08:47→21:40)
--- NOTE | 2025-08-01 08:55 | HMH.PHAAMS2 ---
- Antimicrobial Stewardship Review culture & sensitivity review Stewardship interventions: culture & sensitivity review (CURRENTLY ON CEFEPIME 2 GM Q12H, WBC DECREASED FROM 16.3K TO 6.9K, AFEBRILE. BLD CX PENDING.)
--- NOTE | 2025-08-01 09:36 | PC.NURSE ---
Addendum entered by Alem Pérez RN 08/01/25 09:46: [facility] OFFICE NOTIFIED OF FEVER OVER NIGHT Original Note: ATTEMPTED TO REACH MD HUIZAR OFFICE TO NOTIFY HIM OF PATIENT'S FEVER OVER NIGHT AND I WAS SENT TO [facility]
[2025-08-01 09:43] LABS: C-Reactive Protein 27.0 mg/L (0-4)
--- NOTE | 2025-08-01 10:16 | EXP.CARD.PN ---
Subjective Subjective Date: 08/01/25 Time: 08:00 Principal diagnosis: fall, hip fracture Interval history: Patient sleeping. Morning labs reviewed. Exam Data for Last 24 hours Vital signs and Labs for Last 24 Hours: Temp Pulse Resp BP Pulse Ox O2 Del Method O2 Flow Rate 98.7 F 94 H 10 L 150/59 H 91 L Nasal Cannula 1 08/01/25 08:00 08/01/25 08:00 08/01/25 08:00 08/01/25 08:00 08/01/25 08:00 08/01/25 09:00 08/01/25 09:00 Laboratory Results - last 24 hr 07/31/25 12:04: WBC 16.3 H, RBC 3.86 L, Hgb 12.9, Hct 38.9, MCV 100.8 H, MCH 33.4 H, MCHC 33.2, RDW 12.3, Plt Count 271, MPV 9.5, Neut % (Auto) 83.4 H, Lymph % (Auto) 7.9 L, [place] % (Auto) 7.7, Eos % (Auto) 0.2, Baso % (Auto) 0.4, Neut # (Auto) 13.6 H, Lymph # (Auto) 1.3, [place] # (Auto) 1.3 H, Eos # (Auto) 0.0, Baso # (Auto) 0.1, Sodium 134 L, Potassium 4.7, Chloride 105, Carbon Dioxide 27, Anion Gap 6.7, BUN 20 H, Creatinine 0.80, Estimated Creat Clear 32, Estimated GFR 68, Est GFR ( Amer) 82, Glucose 104 H, Lactate 1.3, Calcium 8.7, Magnesium 2.2, Total Bilirubin 0.8, AST 46 H, ALT 23, Alkaline Phosphatase 63, Troponin I 0.03, Total Protein 7.1, Albumin 4.2, Globulin 2.9, Albumin/Globulin Ratio 1.4, Lipase 65, HCV Ab ALMA w/Rflx PCR Qn Negative, HIV Ag/Ab Combo Qual Negative 07/31/25 13:25: Urine Color Yellow, Urine Appearance Clear, Urine pH 7.5, Ur Specific [place] 1.015, Urine Protein Negative, Urine Glucose (UA) Negative, Urine Ketones Negative, Urine Blood Negative, Urine Nitrate Negative, Urine Bilirubin Negative, Urine Urobilinogen 0.2, Ur Leukocyte Esterase Negative, Urine RBC None, Urine WBC None, Ur Squamous Epith Cells Occasional, Urine Bacteria None 07/31/25 14:46: Troponin I 0.03 07/31/25 18:00: Troponin I 0.02 08/01/25 02:56: Chlamy pneumoniae PCR Not detected, Adenovirus (PCR) Not detected, B. pertussis DNA (PCR) Not detected, Coronavirus OC43 (PCR) Not detected, Coronavirus HKU1 (PCR) Not detected, Coronavirus 229E (PCR) Not detected, SARS-CoV-2 (PCR) Not detected, Coronavirus NL63 (PCR) Not detected, Human Metapneumovir PCR Not detected, Influenza A (H1) PCR Not detected, Influ A (H1N1/09) PCR Not detected, Influenza A (H3) PCR Not detected, Influenza Type A (PCR) Not detected, Influenza Type B (PCR) Not detected, M. pneumoniae (PCR) Not detected, Parainfluenza 1 (PCR) Not detected, Parainfluenza 2 (PCR) Not detected, Parainfluenza 3 (PCR) Not detected, Parainfluenza 4 (PCR) Not detected, RSV (PCR) Not detected, Entero/Rhino (PCR) Not detected 08/01/25 03:07: WBC 6.9 D, RBC 3.53 L, Hgb 11.9 L, Hct 35.3 L, MCV 100.0 H, MCH 33.7 H, MCHC 33.7, RDW 12.3, Plt Count 235, MPV 9.3, Neut % (Auto) 67.5, Lymph % (Auto) 15.8, [place] % (Auto) 15.5 H, Eos % (Auto) 0.3, Baso % (Auto) 0.6, Neut # (Auto) 4.6, Lymph # (Auto) 1.1, [place] # (Auto) 1.1 H, Eos # (Auto) 0.0, Baso # (Auto) 0.0, Sodium 131 L, Potassium 3.9, Chloride 102, Carbon Dioxide 25, Anion Gap 7.9, BUN 22 H, Creatinine 0.90, Estimated Creat Clear 33, Estimated GFR 59, Est GFR ( Amer) 72, Glucose 122 H, Calcium 8.1 L, Magnesium 1.9 D, Total Bilirubin 1.1, AST 44 H, ALT 26, Alkaline Phosphatase 76, C-Reactive Protein 27.0 H, Total Protein 6.4, Albumin 3.6 D, Globulin 2.8, Albumin/Globulin Ratio 1.3, Procalcitonin 0.091 Temp Pulse Resp BP Pulse Ox O2 Del Method 97.9 F 87 20 115/62 94 L Room Air 07/31/25 11:45 07/31/25 13:02 07/31/25 11:45 07/31/25 13:32 07/31/25 13:02 07/31/25 13:02 Laboratory Results - last 24 hr 07/31/25 12:04: WBC 16.3 H, RBC 3.86 L, Hgb 12.9, Hct 38.9, MCV 100.8 H, MCH 33.4 H, MCHC 33.2, RDW 12.3, Plt Count 271, MPV 9.5, Neut % (Auto) 83.4 H, Lymph % (Auto) 7.9 L, [place] % (Auto) 7.7, Eos % (Auto) 0.2, Baso % (Auto) 0.4, Neut # (Auto) 13.6 H, Lymph # (Auto) 1.3, [place] # (Auto) 1.3 H, Eos # (Auto) 0.0, Baso # (Auto) 0.1, Sodium 134 L, Potassium 4.7, Chloride 105, Carbon Dioxide 27, Anion Gap 6.7, BUN 20 H, Creatinine 0.80, Estimated Creat Clear 32, Estimated GFR 68, Est GFR ( Amer) 82, Glucose 104 H, Lactate 1.3, Calcium 8.7, Magnesium 2.2, Total Bilirubin 0.8, AST 46 H, ALT 23, Alkaline Phosphatase 63, Troponin I 0.03, Total Protein 7.1, Albumin 4.2, Globulin 2.9, Albumin/Globulin Ratio 1.4, Lipase 65, HIV Ag/Ab Combo Qual Negative 07/31/25 13:25: Urine Color Yellow, Urine Appearance Clear, Urine pH 7.5, Ur Specific [place] 1.015, Urine Protein Negative, Urine Glucose (UA) Negative, Urine Ketones Negative, Urine Blood Negative, Urine Nitrate Negative, Urine Bilirubin Negative, Urine Urobilinogen 0.2, Ur Leukocyte Esterase Negative, Urine RBC None, Urine WBC None, Ur Squamous Epith Cells Occasional, Urine Bacteria None I & O for Last 24 hours: Intake & Output 07/29/25 07/30/25 07/31/25 08/01/25 23:59 23:59 23:59 23:59 Intake Total 240 / 380 1300 / 1300 Output Total 900 / 900 750 / 750 Balance -660 / -520 550 / 550 Weight 113 lb 9 oz 114 lb 3.2 oz Intake & Output 07/28/25 07/29/25 07/30/25 07/31/25 23:59 23:59 23:59 23:59 Output Total 600 / 600 Balance -600 / -600 Weight 110 lb Constitutional Constitutional: no acute distress *Routine Respiratory Exam Respiratory: Present CTA bilaterally and symmetric chest movement *Routine Cardiovascular Exam Cardiovascular: Present RRR, Normal S1 and Normal S2 *Routine Abdominal Exam Abdominal: Present soft and normoactive bowel sounds; Absent tenderness *Routine Extremities Exam Extremities: Present full ROM and normal capillary refill; Absent edema Comments: tenderness noted to left hip *Routine Skin Exam Skin: Present intact, dry and warm Detailed Neck Exam: Thyroids Thyroid: Absent bruit Progress Note: A&P Assessment and plan (1) Closed intertrochanteric fracture of left hip: Status: Acute (2) Aortic insufficiency: Status: Acute (3) Hypertension: Status: Acute (4) Anxiety: Status: Acute (5) Recurrent falls: Status: Acute (6) History of stroke: Status: Acute Assessment and Plan Assessment and Plan for All Diagnoses:: History of moderate to severe aortic insufficiency Closed hip fracture- left Surgical risk assessment Echo show low normal EF, severe AI. EKG is SR with Sinus arrhythmia rate 85, negative for stemi Trop 0.03-0.02 CV summary 08/01/2025: Patient has a low normal ejection fraction but severe aortic insufficiency. EKG is without acute ischemic changes and troponins remain normal. Patient is a moderate surgical risk given advanced age and severe aortic insufficiency. This risk is likely nonmodifiable at this time. Please contact cardiology for any additional concerns.
--- OUTSIDE RECORDS SUMMARY | 2025-08-01 10:48 | XMS_ITS | Clinical Summary ---
Author Organization [facility] Address [address] [id number] Care Team Providers Care Manager Vehicle Name Role Phone Marin Ambrose MD Primary Care Provider [phone] Allergies Active Allergy Reactions Criticality Noted Date Comments Penicillins Unknown - Patient st ates they do not know rxn details Low 03/04/2016 Medications aspirin 81 MG chewable tablet 03/04/2016 Act delaney Multiple Vitamins-Mineral s (PRESERVISION AREDS PO) 03/04/2016 Active amLODIPine (Norvasc) 5 MG tablet 10/09/2023 Active busPIRone (Buspar) 15 MG tablet Take 1 tablet (15 mg) by mouth 3 (three) times a day. 11/25/2023 Active Auvelity 45-105 MG tablet controlled-relea se Take 1 tablet by mouth 2 (two) times a day. 09/04/2023 Active famotidine (Pepcid) 40 MG tablet TAKE 1 TABLET BY MOUTH DAILY FOR 2 WEEKS 11/23/2023 Active Active Problems Problem Noted Date Diagnosed Date Dry eye syndrome of both eyes 11/05/2022 Exudative age-related macula r degeneration of both eyes with active choroidal neovascularization 11/05/2022 Pseudophakia of both eyes 10/22/2021 After cataract of both eyes not obscuring vision 10/22/2021 Intermediate stage nonexudat delaney age-related macular degeneration of right eye 10/22/2021 Wet age-related macular dege neration of left eye with inactive choroidal neovascularization 10/22/2021 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 10/22/2021 Resolved Problems Problem Noted Date Diagnosed Date Resolved Date Myopia of both eyes 11/05/2022 05/07/20 Regular astigmatism of both eyes 11/05/2022 05/07/2025 Presbyopia 11/05/2022 05/07/2025 Family History Medical History Relation Name Comments Diabetes Other 1 Glaucoma Other 2 Hypertension Other 3 Kidney disease Other 4 Macular degeneration Other 5 Heart Problem Other 6 Relation Name Status Comments Other 1 Other 2 Other 3 Other 4 Other 5 Other 6 Social History Tobacco Use Types Packs/Day Years Used Date Smoking Tobacco: Never Passive Smoke Exposure: Never Smokeless Tobacco: Never Tobacco Cessation:Counseling Given: Not Answered Alcohol Use Standard Drinks/Week Comments No 0 (1 standard drink = 0.6 oz pur e alcohol) Comments Unknown Sex and Gender Information Value Date Recorded Sex Assigned at Not on file Legal Sex Female 8:32 PM EDT Gender Identity Not on file Sexual Orientation Not on file Last Filed Vital Signs Vital Sign Reading Time Taken Comments Blood Pressure 146/54 01/15/2023 11:51 PM EDT Pulse 58 01/15/2023 11:51 PM EDT Temperature 36.8 C (98.2 F) 01/15/2023 11:51 PM EDT Respiratory Rate 18 01/15/2023 11:51 PM EDT Oxygen Saturation 95% 01/15/2023 11:51 PM EDT Inhaled Oxygen Concentration - - Weight 47.2 kg (104 lb) 01/15/2023 2:56 PM EDT Height - - Body Mass Index - - Plan of Treatment Upcoming Encounters Date Type Department Care Team (Late st Contact Info) Description 12/22/2025 2:30 PM EDT Office Visit [facility] [address], [address] [place] [address] Tamara King MD [address] [facility] [address] [place] [address] Health Maintenance Due Date Last Done Comments [facility]-Bone Density Scan 1940 [facility]-Depression Screening 1940 [facility]-Infant/Child/Adol SDOH Screenings 1940 [facility]- SDOH Screenings 1957 [facility]-Adult SDOH Screenings 1957 [facility]-Zoster Vaccines (2 of 3) 09/17/2007 07/23/2007 [facility]-RSV Vaccine: 60+ Years or (1 - 1-dose 75+ series) 2014 [facility]-DTaP,Tdap,and Td Vaccines (1 - Tdap) 05/07/2018 05/06/2018, 03/08/2002, 02/16/2002 [facility]-Medicare Annual Wellness (AWV) 12/16/2024 12/17/2023, 06/12/2022 [id number] Vaccine ( season) 2025 06/06/2024, 06/11/2022, 06/10/2021, Additional history exists [facility]-Influenza Vaccine (#1) 04/17/202505/31, 06/02/2023, 06/30/2022, Additional history exists [facility]-Pneumococcal Vaccine: 50+ Years Completed 04/17/2015, 03/08/2012, 01/29/2007 [facility]-Hepatitis A Vaccines Aged Out 02/02/2019, 08/2017 No longer eligible based on patient's age to complete this topic HPV Vaccines (No Doses Required) Completed [facility]-HIB Vaccines Aged Out No longer e ligible based on patient's age to complete this topic [facility]-IPV Vaccines Aged Out No longer e ligible based on patient's age to complete this topic [facility]-Rotavirus Vaccines Aged Out No lo nger eligible based on patient's age to complete this topic Insurance [employer] MEDICARE Care Teams Manager Vehicle Relationship Specialty Start Date End Date Marin Ambrose MD [address] [facility] [address] [place], [place] [address] PCP - General 11/05/22
--- NOTE | 2025-08-01 11:56 | PC.NURSE ---
PT LEFT ICU WITH SURGERY STAFF
--- NOTE | 2025-08-01 12:17 | P.PNANES_ITS ---
[facility] Disclaimer: The information contained in this section may have been updated after the patient was seen, as this information can be updated by other users. Medical History Anxiety History of stroke Hypertension Surgical History History of hysterectomy Family History Other No significant family history Social History Smoking Status: Never smoker alcohol intake: never substance use type: denies use current occupational status: retired Travel in the last 8 weeks?: None [facility] Anesthesia Checklist Patient Identification Patient Identification: Arm Band and Family Structural Data Admitted From: Home Planned Operative Procedure/s: Cephalomedullary Nailing Left Femur Consent for Planned Operative Procedure(s) Verified: Yes Verified Documents: Surgical Consent and History and Physical NPO Status Verified Time NPO: 00:00 Additional verifications Anesthesia Reactions: No Airway Assessment Mallampati Score:: Class II C-Spine Mobility Assessed: Yes TMJ Mobility Assessed: Yes Neurological Assessment Level of Consciousness: Awake, Follows Commands and Disoriented Anesthesia Plan Anesthesia Risk discussed: Yes Anesthesia Plan: Verified ASA Class: III Anesthesia Type: General
[2025-08-01] MEDS: LACTATED RINGERS 1000ML 1,000 ML 50 ML IV (12:26)
[2025-08-01] MEDS: ACETAMINOPHEN 500MG TAB 500 MG PO (12:26)
[2025-08-01] MEDS: CLINDAMYCIN PHOSPHATE/D5W 900 MG/50 ML PIGGYBACK 100 MG (14:00)
--- NOTE | 2025-08-01 15:09 | XR_ITS ---
FINAL REPORT CLINICAL HISTORY: OR IMAGES, LEFT HIP NAIL 28mgy 2.03 fluoro time FINDINGS: FLUOROSCOPY LESS THAN 1 HOUR HISTORY: ORIF with placement of left hip nail intraoperatively FINDINGS: Fluoroscopic guidance was provided for intraoperative placement of left hip nail. 3 spot films were obtained. 2.03 minutes of fluoroscopy time were used, with a dosage of 28 mGy. IMPRESSION: As above. Reviewed, Interpreted and Dictated by Fabio Tirado MD Transcribed by Christiana Shirley Authenticated and [facility]
--- NOTE | 2025-08-01 15:39 | P.PNANES_ITS ---
[facility] Anesthesia Record Part I Anesthesia Record I Intake, IV Amount: 550 Hydration: Adequate Estimated blood loss (mL): 10 Urine output (mL): 125 Blood Products used (#): none Blood Pressure: 113/39 SaO2: 98 Pulse Rate: 81 Airway Patency: Patent Respiratory Rate: 18 Temperature: 98.7 F Patient is:: Awake, Nasal O2 and Stable Stable to PACU at:: 15:44
--- NOTE | 2025-08-01 15:40 | P.OP_ITS ---
Date of procedure: 08/01/25 Pre-op Diagnosis:: Left intertrochanteric hip fracture Post-op Diagnosis:: Same Procedure performed:: Cephalomedullary nailing left proximal femur Surgeon:: Bryant Burks DO Digital Account Manager(s):: Mohit SMART COLLECT ON DELIVERY CLERK:: Gema Bermudez Anesthesia: GETA Estimated blood loss (mL): 150 Operative findings:: Left intertrochanteric hip fracture Operative note:: Patient identified preoperatively. Left hip marked with a yes and my initials. Transferred operative suite. Placed upon operating bed. General anesthesia administered airway secured. Once airway secured she was placed in line traction with the fracture table. The nonoperative leg was placed in the semilithotomy position well-padded. The operative leg was placed in line traction with the leg painter and the fracture table. Perineal pad placed. X-rays brought into identify the fracture there is a shortened comminuted intertrochanteric hip fracture. He is a combination of traction and internal rotation abduction fracture was reduced radiographically on the AP and lateral views. Once a reduced the left hip was prepped and draped in normal sterile fashion. Once prepped and draped final operative timeout performed to identify proper patient procedure and extremity. Everyone involved in the case agreed. There is no counter indications to beginning. She did receive preoperative antibiotics. Marking pen was used to caesar 2 fingerbreadth incision 2 fingerbreadths above the greater trochanter. Skin knife was used incise through skin through the IT band the guidewire was placed to the tip of the greater trochanter and viewed radiographically. The guidewire was then passed through the tip of the greater trochanter into the femoral shaft. This was confirmed on the AP and lateral views. Once the opening guidewire was in place the opening reamer was utilized for opening at the greater trochanter. This was then switched with the long ball- tipped wire and the size 11 TFN nail was then impacted over the ball-tipped wire to the proper depth. The triple trocar was then selected skin knife was used to incise the skin and the IT band and the triple trocar was then placed down proper placement the guidewire was then placed into the femoral neck and into the femoral head once this was adequate on the AP and lateral views measured to a size 90 the lateral cortical reamer was utilized followed by the step reamer set the size 90 and a 90 screw was selected for the helical blade and impacted into place this was then locked at the top of the nail. And the helical blade was then released from the field attendant. Attention was then brought to the distal locking screw using the triple cannula bicortical drill was performed and a size 36 distal locking screw was placed a picture taken the AP and lateral views found to be in good position irrigation of the wound was performed IT band closed with 0 Vicryl subcutaneous with 2-0 Vicryl surgical clips in the skin for closure sterile dressing placed patient waken anesthesia taken recovery in stable condition. Condition: stable Disposition: PACU Complications:: None apparent
--- NOTE | 2025-08-01 15:57 | P.PN_ITS ---
Subjective *Date: 08/01/25 *Time: 15:57 Interval history: Patient anxious this morning, slightly more patient. at bedside states aphasia is normal at baseline, and worsens with anxiety. Patient is anxious about being in the hospital today. Follow-up PT/OT recommendations tomorrow s/p surgery. Exam Data for Last 24 hours Vital signs and Labs for Last 24 Hours: Temp Pulse Resp BP Pulse Ox O2 Del Method O2 Flow Rate 98.7 F 84 17 121/47 L 98 Nasal Cannula 4 08/01/25 15:41 08/01/25 15:44 08/01/25 15:44 08/01/25 15:44 08/01/25 15:44 08/01/25 15:44 08/01/25 15:44 Laboratory Results - last 24 hr 07/31/25 12:04: HCV Ab ALMA w/Rflx PCR Qn Negative 07/31/25 14:46: Troponin I 0.03 07/31/25 18:00: Troponin I 0.02 08/01/25 02:56: Chlamy pneumoniae PCR Not detected, Adenovirus (PCR) Not detected, B. pertussis DNA (PCR) Not detected, Coronavirus OC43 (PCR) Not detected, Coronavirus HKU1 (PCR) Not detected, Coronavirus 229E (PCR) Not detected, SARS-CoV-2 (PCR) Not detected, Coronavirus NL63 (PCR) Not detected, Human Metapneumovir PCR Not detected, Influenza A (H1) PCR Not detected, Influ A (H1N1/09) PCR Not detected, Influenza A (H3) PCR Not detected, Influenza Type A (PCR) Not detected, Influenza Type B (PCR) Not detected, M. pneumoniae (PCR) Not detected, Parainfluenza 1 (PCR) Not detected, Parainfluenza 2 (PCR) Not detected, Parainfluenza 3 (PCR) Not detected, Parainfluenza 4 (PCR) Not detected, RSV (PCR) Not detected, Entero/Rhino (PCR) Not detected 08/01/25 03:07: WBC 6.9 D, RBC 3.53 L, Hgb 11.9 L, Hct 35.3 L, MCV 100.0 H, MCH 33.7 H, MCHC 33.7, RDW 12.3, Plt Count 235, MPV 9.3, Neut % (Auto) 67.5, Lymph % (Auto) 15.8, [place] % (Auto) 15.5 H, Eos % (Auto) 0.3, Baso % (Auto) 0.6, Neut # (Auto) 4.6, Lymph # (Auto) 1.1, [place] # (Auto) 1.1 H, Eos # (Auto) 0.0, Baso # (Auto) 0.0, Sodium 131 L, Potassium 3.9, Chloride 102, Carbon Dioxide 25, Anion Gap 7.9, BUN 22 H, Creatinine 0.90, Estimated Creat Clear 33, Estimated GFR 59, Est GFR ( Amer) 72, Glucose 122 H, Calcium 8.1 L, Magnesium 1.9 D, Total Bilirubin 1.1, AST 44 H, ALT 26, Alkaline Phosphatase 76, C-Reactive Protein 27.0 H, Total Protein 6.4, Albumin 3.6 D, Globulin 2.8, Albumin/Globulin Ratio 1.3, Procalcitonin 0.091 I & O for Last 24 hours: Intake & Output 07/29/25 07/30/25 07/31/25 08/01/25 23:59 23:59 23:59 23:59 Intake Total 240 / 380 1850 / 1850 Output Total 900 / 900 750 / 750 Balance -660 / -520 1100 / 1100 Weight 51.511 kg 51.8 kg Assessment and Plan *Assessment and plan (1) Closed intertrochanteric fracture of left hip: Status: Acute Category: Medical Code(s): S72.142A - Displaced intertrochanteric fracture of left femur, initial encounter for closed fracture (2) Aortic insufficiency: Status: Acute Category: Medical Code(s): I35.1 - Nonrheumatic aortic (valve) insufficiency (3) Hypertension: Status: Acute Qualifiers: Hypertension type: primary hypertension Qualified Code(s): I10 - Essential (primary) hypertension Category: Medical Code(s): I10 - Essential (primary) hypertension (4) Anxiety: Status: Acute Category: Medical Code(s): F41.9 - Anxiety disorder, unspecified (5) Recurrent falls: Status: Acute Category: Medical Code(s): R29.6 - Repeated falls (6) History of stroke: Status: Acute Category: Medical Code(s): Z86.73 - Personal history of transient ischemic attack (TIA), and cerebral infarction without residual deficits Plan Caity Villanueva is a 85-year-old female who fell getting out of her car. Sustained left proximal femur fracture on 07/31/2025. Discussed case with ER physician, request admission for surgical fixation. Agreed to admit for further care. Orthopedics consulted. Will have cardiology evaluate aortic insufficiency. Mechanical fall from standing height Proximal left femur fracture - Per review of imaging, has a closed intertrochanteric fracture left hip. Patient's pain well-controlled after nerve block. ? Orthopedic surgery consulted, s/p cephalomedullary nailing left proximal femur on 08/01/2025. - Continue IV morphine 4 mg as needed for severe pain, hydrocodone 5 mg as needed for moderate pain, Toradol for moderate to severe pain. 30 mg IV every 6 hours. Monitor for toxicity - Note, has stridor and aphasia on exam. states this is baseline for patient has been present for years since stroke. Worse when she is anxious. Does not have any respiratory distress however. ? Follow-up morning CMP, B12, folate, TSH ? Follow-up PT/OT recommendations, anticipate SNF versus home health. Case management assisting. ? Aspirin 81 mg twice daily for DVT prophylaxis. #Fever of unknown origin ? Fever up to 101.3 this morning, initial WBCs 16.3 improved to 6.9 today. CRP 27, procalcitonin normal. ? Broad workup including CXR, UA, full respiratory panel unremarkable for acute findings. Follow-up blood cultures. ? Started empiric IV cefepime 2 g every 12 hours. ? Follow-up blood cultures. ? Follow-up morning CBC, CRP. #History of CVA #History of aphasia, stridor ? Continue aspirin 81 mg twice daily as above. Severe aortic insufficiency Hypertension - Echo from March 2024 with the following: Low-normal LV systolic function (LVEF 50%). Normal LV dimensions (LVEDd=5.8 cm. LVESd=4.3 cm). Asynchronous septum. Mild RV dilation. Moderate to severe AI. Mild MR, mild TR, mild PI. - Repeat ECHO on 08/01/2025 revealed severe aortic insufficiency, trivial posterior pericardial effusion without signs of tamponade. Cardiology following, will continue further evaluation on outpatient basis. ?Hold home amlodipine as BP normal at this time. Anxiety: Continue Auvelity 1 tab twice daily. Continue BuSpar 20 mg 3 times a day. Full code Initiate anticoagulation for DVT prophylaxis after surgery. Regular diet, n.p.o. midnight
[2025-08-02] VITALS (7 sets, daily range): BP systolic 96–141; BP diastolic 45–93; PULSE 62–110; RESP 16–20; TEMP 36.4–37.1; O2SAT 92–99; BMI 19.5
[2025-08-02] MEDS: HYDROCODONE/APAP 5/325 MG TABLET 2 TAB PO (02:24)
[2025-08-02] MEDS: HALOPERIDOL LACTATE 5 MG/ML VIAL 3 MG IV (05:24)
[2025-08-02 06:18] LABS: Hematocrit 25.0 % (37.0-47.0); Hemoglobin 8.5 g/dL (12.2-16.2); Immature Granulocytes % 0.3 %; Mean Corpuscular HGB Conc 34.0 g/dL (31.8-35.4); Mean Corpuscular Hemoglobin 34.4 pg (27.0-31.2); Mean Corpuscular Volume 101.2 fl (81-99); Nucleated Red Blood Cells % 0 %; Platelet Count 184 K/mm3 (142-424); Red Blood Count 2.47 M/mm3 (4.20-5.40); Red Cell Distribution Width-SD 45.4 fL; White Blood Count 7.5 K/mm3 (4.8-10.8)
[2025-08-02 06:30] LABS: Albumin Level 3.0 g/dl (3.5-5.0); Chloride 103 mmol/L (98-107)
[2025-08-02 06:31] LABS: Potassium 4.2 mmoL/L (3.5-5.1); Sodium 128 mmol/L (136-145)
[2025-08-02 06:33] LABS: Blood Urea Nitrogen 29 mg/dl (7-17); Creatinine Clearance Estimated 25 mL/min (50-200); Creatinine,Serum 1.30 mg/dl (0.52-1.04); Estimated Glomerular Filt Rate 39 ml/min (>60); GFR (African American) 47 ML/MIN (>60)
[2025-08-02 06:34] LABS: Alanine Aminotransferase 30 U/L (12-78); Albumin/Globulin Ratio 1.3 (1.1-1.8); Alkaline Phosphatase 57 U/L (38-126); Anion Gap 4.2 mEq/L (5-15); Aspartate Amino Transferase 59 U/L (14-36); Bilirubin,Total 0.7 mg/dl (0.2-1.3); Calcium 7.4 mg/dl (8.4-10.2); Carbon Dioxide 25 mmol/L (22.0-30.0); Globulin 2.4 g/dL (1.3-3.2); Glucose 119 mg/dl (74-100); Total Protein,Serum 5.4 g/dl (6.3-8.2)
[2025-08-02 06:42] LABS: C-Reactive Protein 127.1 mg/L (0-4)
--- NOTE | 2025-08-02 06:54 | PC.NURSE ---
pt became very restless and anxious earlier in shift. repositioned and she appeared to be in pain, treated per mar with little relief. pt then pulled out her iv and was tearing off hip dsg. notified manas supervisor phosphorus processing, and treated with new orders. worked well, pt resting well, vss, and appears to be in no distress at this time.
[2025-08-02 07:04] LABS: Thyroid Stimulating Hormone 1.81 uIU/mL (0.465-4.68)
[2025-08-02 07:23] LABS: Vitamin B12 740 pg/mL (239-931)
--- NOTE | 2025-08-02 07:57 | HMH.PTEV ---
Physical Therapy Evaluation Rehab PT IP Evaluation Start: 08/01/25 15:43 Freq: ONCE Status: Active Protocol: Document 08/02/25 07:53 JASON (Rec: 08/02/25 07:57 JASON [id number]) Subjective/History History History Per H&P: Ms. Villar is an 85-year-old female with history of moderate to severe AI, hypertension, anxiety . She presented to the ER after a fall at home. Sustained left hip pain. Count elevated at 16. Imaging obtained showing proximal left femur fracture. Discussed case with ER, request admission for further management. Stable on room air. Pain better after nerve block. assists with history. Pt is 1 day s/p L TFN. Subjective Subjective Pt not able to provide hx d/t baseline aphasia. Pt able to follow some commands and state yes/no to some questions. Pt lives with her . [facility] How much help from another person do you currently need... Turning from your A lot back to your side while in a flat bed without using bedrails? Moving from lying on A lot back to sitting on the side of a flat bed without using bedrails? Moving to and from a A lot bed to a chair ( including a wheelchair)? Standing up from a A lot chair using your arms? (e.g., wheelchair, bedside chair) Walking in hospital A lot room? Climbing 3-5 steps Total with a railing? Mobility Score 11 Mobility Level [place] Mobility 4 Move to chair/commode Mobility Calculator Rehab PT IP Eval Objective Appearance Difficulty following mild instructions Speech Pattern Aphasic Ambulation Patient Able to No Ambulate Balance Ability to Arise Unable Sitting Balance Leans or slides in chair Standing Balance Unsteady Transfers Bed Transfer Ability Maximum x 1 (75% assist) Rehab PT IP prob,goals,plan Problems Date of Evaluation: 08/02/25 PT IP Problems Bed Mobility,Transfers,Gait,Balance,Self care Rehab Potential Rehab Potential Good Plan PT Intervention Plan Bed Mobility,Transfers,Gait,Balance,Self care,Safety, Therapeutic Exercise Other Intervention 1-2 times Plan PT Plan Frequency Daily Duration LOS Discharge Goals Bed Transfer Ability Moderate x 1 (50% assist) Sit to Stand Chair Moderate x 1 (50% assist) Transfer Ability Discharge Plan PT Discharge Plan Pt is most appropriate for inpatient rehabilitation facility (IRF) placement at this time. Pt presents below her baseline in all functional mobility. Pt's mobility primarily limited by pain at this time. Pt would benefit from skilled PT while at [facility] to prevent further functional decline and address deficits . Eval Complexity Eval Charge Codes 65654 - Moderate Complexity PHYSICIAN CERTIFICATION: I certify the specified therapy services for Caity Villar are required, authorized, and reviewed every 30 days.
--- NOTE | 2025-08-02 09:17 | HMH.PHAAMS2 ---
- Antimicrobial Stewardship Review culture & sensitivity review Stewardship interventions: culture & sensitivity review (CURRENTLY RECEIVING CEFEPIME, WBC DOWN FROM 16.3K TO 7.5K, AFEBRILE, NO GROWTH IN BLD CX.)
[2025-08-02] MEDS: CEFEPIME HCL 2 GM in 0.9 % SODIUM CHLORIDE 100 ML IV ×2 (09:37→20:59)
[2025-08-02] MEDS: BUSPIRONE HCL 10 MG TABLET 20 MG PO ×3 (09:38→20:59)
[2025-08-02] MEDS: ASPIRIN 81MG CHEWABLE TABLET 81 MG PO ×2 (09:38→20:59)
[2025-08-02] MEDS: OYSTER SHELL CALCIUM (ELEMENTAL) 500MG TAB 500 MG PO (09:38)
--- NOTE | 2025-08-02 10:06 | HMH.OTEV ---
OT Evaluation Rehab OT IP Evaluation Start: 08/01/25 08:22 Freq: ONCE Status: Active Protocol: Document 08/02/25 10:00 NAHED (Rec: 08/02/25 10:06 NAHED [id number]) Rehab OT IP Assessment Subjective History Caity Villanueva is a 85-year-old female who fell getting out of her car. Sustained left proximal femur fracture on 07/31/2025. Discussed case with ER physician, request admission for surgical fixation. Agreed to admit for further care. Orthopedics consulted. Will have cardiology evaluate aortic insufficiency. Patient lives with . Unable to provide accurate hx. Subjective Yeah. Instructed Patient on proper hand and foot placement to complete bed mobility from supine->sit @ EOB->SPT to recliner requiring Max A X2. Objective Patient Orientation Person,Name Right Upper WFL Extremity Gross ROM Left Upper Extremity WFL Gross ROM Bed Mobility bed mobility - supine/sit Assist Level Maximum x 2 (75% assist) Transfer Training Sit/Stand/Pivot Transfer Assist Level Maximum x 2 (75% assist) Chair Transfer Maximum x 2 (75% assist) Ability Rehab OT IP prob,goals,plan Problems Date of Evaluation: 08/02/25 OT IP Problems Bed Mobility,Transfers,Balance,Self care,Safety Rehab Potential Rehab Potential Good Equipment Needs Assistive Devices Rolling / Wheeled Walker Plan OT intervention Plan Bed Mobility,Transfers,Balance,Self care,Safety, Therapeutic Exercise OT Plan Frequency Daily Duration LOS Discharge Goals Bed Mobility Ability Assistance x1 Sit to Stand Chair Moderate x 1 (50% assist) Transfer Ability Chair Transfer Moderate x 1 (50% assist) Ability Chair Transfer Sit to/from Ambulatory Technique Chair Transfer Rolling Walker Assistive Devices Discharge Plan OT Discharge Plan Recommend placement at this time. Patient is requiring two assist for ADLs and fx'l mobility and will require 24/7 care. Eval Complexity Eval Charge Codes 07504 - Low Complexity PHYSICIAN CERTIFICATION: I certify the specified therapy services for Caity Villar are required, authorized, and reviewed every 30 days.
--- NOTE | 2025-08-02 11:04 | SW/DCPLANNER ---
Addendum entered by Corrine Waverly 08/07/25 08:27: I have updated Alyssa w/ [facility] that patient is ready for discharge today. Patient will admit to [facility] SNF level of care. Addendum entered by Jacqui Blake RN 08/04/25 11:37: Patient receiving blood today. Alyssa from [facility] states that the patient can come to the facility tomorrow if medically stable. Addendum entered by Jacqui Blake RN 08/04/25 07:37: Patient has been approved to go to [facility] Addendum entered by Corrine Waverly 08/03/25 12:35: Per Alyssa w/ [facility] auth is pending at this time. Addendum entered by Corrine Waverly 08/02/25 15:17: [facility] offered patient a bed pending precert at $20 days 1-20 and $0 days 21-100. is agreeable to this option and Alyssa w/ [facility] will start auth today. Addendum entered by [facility] 08/02/25 13:34: Patient's has requested that patient information be faxed to [facility]. I did update patient's that [facility] is currently full at this moment. [facility] is still reviewing patient information and [facility] is willing to accept. would like to explore [facility] and [facility] prior to making any decisions. Addendum entered by [facility] 08/02/25 11:20: Charlie w/ [facility] stated female bed open and patient information has been faxed. Addendum entered by [facility] 08/02/25 11:09: [facility] does have a female bed open and patient information has been faxed. Addendum entered by [facility] 08/02/25 11:08: Currently no bed at [facility]. [facility] does have a female bed and information has been faxed. Original Note: Due to patient's confusion I spoke w/ her regarding discharge plans. PT/OT evaluated patient and recommended SNF level of care. Patient's is agreeable to placement and prefers [facility]. I did explain to patient the importance of other facilities in case [facility] is not able to accept. voiced he would be agreeable to [facility], [facility] or [facility]. I updated that I will fax information to all three facilities then follow back up. Per MD patient is medically stable for discharge pending no setbacks. CM will continue to follow up. requested [facility] but they do not accept patient's insurance.
--- NOTE | 2025-08-02 11:37 | P.PN_ITS ---
Subjective *Date: 08/02/25 *Time: 11:37 Interval history: Patient seen and examined while sitting in chair with family in the room. Not talking very much this morning, per family. ROS limited due to not talking. Ortho Exam (Inpt) Vital signs and Labs for Last 24 Hours: Temp Pulse Resp BP Pulse Ox O2 Del Method O2 Flow Rate 98.8 F 96 H 16 109/47 L 96 Room Air 1 08/02/25 08:00 08/02/25 08:00 08/02/25 08:00 08/02/25 08:00 08/02/25 08:00 08/02/25 09:00 08/02/25 08:00 Laboratory Results - last 24 hr 08/01/25 16:08: Blood Type A Positive, Antibody Screen Negative 08/02/25 05:34: WBC 7.5, RBC 2.47 L D, Hgb 8.5 L, Hct 25.0 L, MCV 101.2 H, MCH 34.4 H, MCHC 34.0, RDW 12.1, Plt Count 184, MPV 9.7, Neut % (Auto) 68.0, Lymph % (Auto) 14.8, [place] % (Auto) 16.5 H, Eos % (Auto) 0.1, Baso % (Auto) 0.3, Neut # (Auto) 5.1, Lymph # (Auto) 1.1, [place] # (Auto) 1.2 H, Eos # (Auto) 0.0, Baso # (Auto) 0.0, Sodium 128 L, Potassium 4.2, Chloride 103, Carbon Dioxide 25, Anion Gap 4.2 L, BUN 29 H D, Creatinine 1.30 H D, Estimated Creat Clear 25, Estimated GFR 39 L, Est GFR ( Amer) 47 L D, Glucose 119 H, Calcium 7.4 L, Total Bilirubin 0.7, AST 59 H D, ALT 30, Alkaline Phosphatase 57, C-Reactive Protein 127.1 H, Total Protein 5.4 L, Albumin 3.0 L D, Globulin 2.4, Albumin/Globulin Ratio 1.3, Vitamin B12 740, TSH 1.81 I & O for Labs for Last 24 Hours: Intake & Output 07/30/25 07/31/25 08/01/25 08/02/25 23:59 23:59 23:59 23:59 Intake Total 240 / 380 2093.333 / 2093.333 516.667 / 516.667 Output Total 900 / 900 1000 / 1100 750 / 750 Balance -660 / -520 1093.333 / 993.333 -233.333 / -233.333 Weight 51.511 kg 51.8 kg 51.8 kg Microbiology Reports for the Last 24 Hours: Microbiology 08/01/25 03:07 Blood - Other Blood Culture - Preliminary NO GROWTH AFTER 24 HOURS 08/01/25 03:07 Blood - Other Blood Culture - Preliminary NO GROWTH AFTER 24 HOURS Additional findings:: L hip: Dressing C/D/I. THigh and calves SNT. Grossly NVID with SILT 1st DWS/PA, +2 DP b/l, +EHL/FHL/GS/TA. Assessment and Plan *Assessment and plan (1) Closed intertrochanteric fracture of left hip: Status: Acute Category: Medical Code(s): S72.142A - Displaced intertrochanteric fracture of left femur, initial encounter for closed fracture Plan S/p left TFN POD# 1: Weightbearing as tolerated to LLE. Ambulate with a rolling walker or other devices as needed. DVT ppx: 81mg ASA BID, continue for total of 28 days. Ice as needed swelling and pain at incision site. Pain medication as needed. Hgb/Hct: 8.5/25.0, monitor Appreciate medical input on non-orthopedic issues. Discharge planning per PT recommendations. F/u 08/14/25 for post-op wound check in clinic.
[2025-08-02] MEDS: MORPHINE 4MG/ML SYRINGE 4 MG IV ×3 (12:16→23:48)
--- NOTE | 2025-08-02 12:19 | EXP.ANES.II ---
[facility] Anesthesia Record Part II Anesthesia Record Part II Discharge Time: 16:04 Destination: Medical Surgical Department PACU nurse assessment reviewed?: Yes Patient Condition:: Good Anesthesia Complications:: None Swallowing reflex intact?: Yes Airway Patency: Patent Cyanosis?: No Blood Pressure: 138/58 SaO2: 94 Respiratory Rate: 18 Pulse Rate: 90 Temperature: 98.2 F Mental Status: Alert & Oriented Pain level:: 0 Nausea and/or vomitting:: None Intake, IV Amount: 0 Hydration: Adequate
--- NOTE | 2025-08-02 12:58 | EXP.PN ---
Subjective *Date: 08/02/25 *Time: 12:58 Interval history: Patient seems a little weaker today, less verbal. Hemoglobin down to 8.5, creatinine bumped to 1.3. Will give IV fluids, monitoring H&H tomorrow. Continue IV cefepime empirically for now. Pending placement. Exam Data for Last 24 hours Vital signs and Labs for Last 24 Hours: Temp Pulse Resp BP Pulse Ox O2 Del Method O2 Flow Rate 97.6 F 107 H 18 122/58 L 97 Nasal Cannula 2 08/02/25 12:00 08/02/25 12:00 08/02/25 12:21 08/02/25 12:00 08/02/25 12:00 08/02/25 12:00 08/02/25 12:00 Laboratory Results - last 24 hr 08/01/25 16:08: Blood Type A Positive, Antibody Screen Negative 08/02/25 05:34: WBC 7.5, RBC 2.47 L D, Hgb 8.5 L, Hct 25.0 L, MCV 101.2 H, MCH 34.4 H, MCHC 34.0, RDW 12.1, Plt Count 184, MPV 9.7, Neut % (Auto) 68.0, Lymph % (Auto) 14.8, [place] % (Auto) 16.5 H, Eos % (Auto) 0.1, Baso % (Auto) 0.3, Neut # (Auto) 5.1, Lymph # (Auto) 1.1, [place] # (Auto) 1.2 H, Eos # (Auto) 0.0, Baso # (Auto) 0.0, Sodium 128 L, Potassium 4.2, Chloride 103, Carbon Dioxide 25, Anion Gap 4.2 L, BUN 29 H D, Creatinine 1.30 H D, Estimated Creat Clear 25, Estimated GFR 39 L, Est GFR ( Amer) 47 L D, Glucose 119 H, Calcium 7.4 L, Total Bilirubin 0.7, AST 59 H D, ALT 30, Alkaline Phosphatase 57, C-Reactive Protein 127.1 H, Total Protein 5.4 L, Albumin 3.0 L D, Globulin 2.4, Albumin/Globulin Ratio 1.3, Vitamin B12 740, TSH 1.81 I & O for Last 24 hours: Intake & Output 07/30/25 07/31/25 08/01/25 12/17/25 23:59 23:59 23:59 23:59 Intake Total 240 / 380 2093.333 / 2093.333 516.667 / 516.667 Output Total 900 / 900 1000 / 1100 750 / 750 Balance -660 / -520 1093.333 / 993.333 -233.333 / -233.333 Weight 51.511 kg 51.8 kg 51.8 kg Microbiology Reports for the Last 24 Hours: Microbiology 08/01/25 03:07 Blood - Other Blood Culture - Preliminary NO GROWTH AFTER 24 HOURS 08/01/25 03:07 Blood - Other Blood Culture - Preliminary NO GROWTH AFTER 24 HOURS Constitutional Constitutional: no acute distress *Routine HEENT Exam Head: Present normocephalic Eye: Present EOMI and PERRL ENT: Present mucous membranes moist *Routine Neck Exam Neck: Present supple; Absent lymphadenopathy *Routine Respiratory Exam Respiratory: Present CTA bilaterally *Routine Cardiovascular Exam Cardiovascular: Present RRR *Routine Abdominal Exam Abdominal: Present soft and normoactive bowel sounds; Absent tenderness *Routine Extremities Exam Extremities: Absent cyanosis, clubbing or edema Comments: Left hip dressed. *Routine Skin Exam Skin: Present warm; Absent rash *Routine Neurological Exam Neurological: Present alert and oriented X3 Assessment and Plan *Assessment and plan (1) Closed intertrochanteric fracture of left hip: Status: Acute Category: Medical Code(s): S72.142A - Displaced intertrochanteric fracture of left femur, initial encounter for closed fracture (2) Aortic insufficiency: Status: Acute Category: Medical Code(s): I35.1 - Nonrheumatic aortic (valve) insufficiency (3) Hypertension: Status: Acute Qualifiers: Hypertension type: primary hypertension Qualified Code(s): I10 - Essential (primary) hypertension Category: Medical Code(s): I10 - Essential (primary) hypertension (4) Anxiety: Status: Acute Category: Medical Code(s): F41.9 - Anxiety disorder, unspecified (5) Recurrent falls: Status: Acute Category: Medical Code(s): R29.6 - Repeated falls (6) History of stroke: Status: Acute Category: Medical Code(s): Z86.73 - Personal history of transient ischemic attack (TIA), and cerebral infarction without residual deficits Plan Caity Villanueva is a 85-year-old female who fell getting out of her car. Sustained left proximal femur fracture on 07/31/2025. Discussed case with ER physician, request admission for surgical fixation. Agreed to admit for further care. Orthopedics consulted. Will have cardiology evaluate aortic insufficiency. Mechanical fall from standing height Proximal left femur fracture - Per review of imaging, has a closed intertrochanteric fracture left hip. ? Orthopedic surgery consulted, s/p cephalomedullary nailing left proximal femur on 08/01/2025. - Continue IV morphine 4 mg as needed for severe pain, hydrocodone 5 mg as needed for moderate pain. Monitor for toxicity - Of note, has stridor and aphasia on exam. states this is baseline for patient has been present for years since stroke. Worse when she is anxious. Does not have any respiratory distress however. ? B12, TSH normal. Follow-up folate. ? Follow-up PT/OT recommendations, anticipate SNF versus home health. Case management assisting. ? Aspirin 81 mg twice daily for DVT prophylaxis. #Acute on chronic anemia ? Hemoglobin down trended from 11.9-8.5 today. No signs of active bleeding at this time. Continue to monitor ? Follow-up morning CBC. #[place] on CKD ? Creatinine bumped from 0.90-1.3 today. ? Will give 500 cc bolus LR 75 L/h. #Fever of unknown origin ? Fever up to 101.3 07/02/2025 morning, initial WBCs 16.3, has since normalized. CRP up from 27-1 27 today, though this in the setting of post op. ? Broad workup including CXR, UA, full respiratory panel, blood cultures unremarkable for acute findings. No other focal infectious symptoms. ? Continue empiric IV cefepime 2 g every 12 hours as patient looks a little weaker today. ? Follow-up morning CBC, CRP. #History of CVA #History of aphasia, stridor ? Continue aspirin 81 mg twice daily as above. Severe aortic insufficiency Hypertension - Echo from March 2024 with the following: Low-normal LV systolic function (LVEF 50%). Normal LV dimensions (LVEDd=5.8 cm. LVESd=4.3 cm). Asynchronous septum. Mild RV dilation. Moderate to severe AI. Mild MR, mild TR, mild PI. - Repeat ECHO on 08/01/2025 revealed severe aortic insufficiency, trivial posterior pericardial effusion without signs of tamponade. Cardiology following, will continue further evaluation on outpatient basis. ?Hold home amlodipine as BP normal at this time. Anxiety: Continue Auvelity 1 tab twice daily. Continue BuSpar 20 mg 3 times a day. Full code Regular diet
[2025-08-02] MEDS: RINGERS SOLUTION,LACTATED 500 ML IV (13:22)
--- NOTE | 2025-08-02 15:49 | PC.NURSE ---
Addendum entered by Krystin Kate RN 08/02/25 18:42: per hospitalist order, pt straight cathed. 600ml urine drained Addendum entered by Krystin Kate RN 08/02/25 18:22: scanned at this time and pt now has 514ml in bladder Original Note: pt tucker removed around 1030. has not urinated since. bladder scan shows 346ml. hospitalist aware. purewick in place.
[2025-08-02] MEDS: LACTATED RINGERS 1000ML 1,000 ML 75 ML IV (20:59)
[2025-08-03] VITALS: BP 126/52; PULSE 122; RESP 18; TEMP 36.5; O2SAT 91
[2025-08-03] MEDS: MORPHINE 4MG/ML SYRINGE 4 MG IV ×3 (02:09→18:21)
[2025-08-03 04:00] VITALS: BP 132/56; PULSE 131; RESP 18; TEMP 36.5; O2SAT 91; BMI 18.8
[2025-08-03] MEDS: HALOPERIDOL LACTATE 5 MG/ML VIAL 3 MG IV (04:58)
[2025-08-03 06:00] LABS: Hematocrit 22.2 % (37.0-47.0); Hemoglobin 7.3 g/dL (12.2-16.2); Immature Granulocytes % 0.4 %; Mean Corpuscular HGB Conc 32.9 g/dL (31.8-35.4); Mean Corpuscular Hemoglobin 33.5 pg (27.0-31.2); Mean Corpuscular Volume 101.8 fl (81-99); Nucleated Red Blood Cells % 0 %; Platelet Count 152 K/mm3 (142-424); Red Blood Count 2.18 M/mm3 (4.20-5.40); Red Cell Distribution Width-SD 45.4 fL; White Blood Count 7.7 K/mm3 (4.8-10.8)
[2025-08-03 06:13] LABS: Albumin Level 2.8 g/dl (3.5-5.0); Chloride 105 mmol/L (98-107); Sodium 130 mmol/L (136-145)
[2025-08-03 06:14] LABS: Potassium 3.7 mmoL/L (3.5-5.1)
[2025-08-03 06:16] LABS: Alanine Aminotransferase 34 U/L (12-78); Albumin/Globulin Ratio 1.1 (1.1-1.8); Alkaline Phosphatase 56 U/L (38-126); Anion Gap 1.7 mEq/L (5-15); Aspartate Amino Transferase 70 U/L (14-36); Bilirubin,Total 0.6 mg/dl (0.2-1.3); Blood Urea Nitrogen 24 mg/dl (7-17); Carbon Dioxide 27 mmol/L (22.0-30.0); Creatinine Clearance Estimated 32 mL/min (50-200); Creatinine,Serum 0.80 mg/dl (0.52-1.04); Estimated Glomerular Filt Rate 68 ml/min (>60); GFR (African American) 82 ML/MIN (>60); Globulin 2.5 g/dL (1.3-3.2); Total Protein,Serum 5.3 g/dl (6.3-8.2)
[2025-08-03 06:23] LABS: C-Reactive Protein 142.6 mg/L (0-4)
[2025-08-03 06:47] LABS: Thyroid Stimulating Hormone 2.91 uIU/mL (0.465-4.68)
[2025-08-03 07:03] LABS: Calcium 7.3 mg/dl (8.4-10.2); Glucose 126 mg/dl (74-100)
[2025-08-03 07:06] LABS: Vitamin B12 747 pg/mL (239-931)
[2025-08-03 07:49] VITALS: BP 141/94; PULSE 98; RESP 22; TEMP 36.8; O2SAT 91
[2025-08-03 08:14] LABS: Iron 24 ug/dL (37-170)
[2025-08-03 08:23] LABS: Total Iron Binding Capacity 149 ug/dL (265-497)
[2025-08-03 08:49] LABS: Ferritin 139 ng/ml (11.1-264)
[2025-08-03] MEDS: ASPIRIN 81MG CHEWABLE TABLET 81 MG PO (09:19)
[2025-08-03] MEDS: BUSPIRONE HCL 10 MG TABLET 20 MG PO (09:19)
[2025-08-03] MEDS: OYSTER SHELL CALCIUM (ELEMENTAL) 500MG TAB 500 MG PO (09:19)
[2025-08-03 10:47] LABS: Folate 14.80 ng/mL
[2025-08-03 11:48] VITALS: BP 124/47; PULSE 52; RESP 18; TEMP 36.6; O2SAT 96
[2025-08-03 14:12] LABS: Hematocrit 23.0 % (37.0-47.0); Hemoglobin 7.5 g/dL (12.2-16.2)
[2025-08-03 16:00] VITALS: BP 106/42; PULSE 93; RESP 15; TEMP 37.4; O2SAT 91
--- NOTE | 2025-08-03 16:41 | P.PN_ITS ---
Subjective *Date: 08/03/25 *Time: 16:41 Interval history: Patient seems more subdued over the past 2 days, is concerned that she is not responding as well as she normally does or conversational. Upon medication review, home buspirone dose was restarted at 20 mg instead of 10 mg 3 times daily. Buspirone has been discontinued for now. Also made morphine only has breakthrough pain, use [place] 5 to 10 mg as needed for moderate to severe pain. Patient is opioid na?ve, concern there is toxicity from acute opioid use. Pending placement. Exam Data for Last 24 hours Vital signs and Labs for Last 24 Hours: Temp Pulse Resp BP Pulse Ox O2 Del Method O2 Flow Rate 97.9 F 52 L 18 124/47 L 96 Room Air 2 08/03/25 11:48 08/03/25 11:48 08/03/25 11:48 08/03/25 11:48 08/03/25 11:48 08/03/25 15:00 08/03/25 13:00 Laboratory Results - last 24 hr 08/03/25 05:35: WBC 7.7, RBC 2.18 L, Hgb 7.3 L, Hct 22.2 L, MCV 101.8 H, MCH 33.5 H, MCHC 32.9, RDW 12.2, Plt Count 152, MPV 9.6, Neut % (Auto) 79.6, Lymph % (Auto) 7.4 L, [place] % (Auto) 12.0 H, Eos % (Auto) 0.3, Baso % (Auto) 0.3, Neut # (Auto) 6.1, Lymph # (Auto) 0.6 L, [place] # (Auto) 0.9, Eos # (Auto) 0.0, Baso # (Auto) 0.0, Sodium 130 L, Potassium 3.7, Chloride 105, Carbon Dioxide 27, Anion Gap 1.7 L, BUN 24 H, Creatinine 0.80 D, Estimated Creat Clear 32, Estimated GFR 68, Est GFR ( Amer) 82 D, Glucose 126 H, Calcium 7.3 L, Iron 24 L, TIBC 149 L, Iron Saturation 16.61837, Ferritin 139, Total Bilirubin 0.6, AST 70 H, ALT 34, Alkaline Phosphatase 56, C-Reactive Protein 142.6 H, Total Protein 5.3 L , Albumin 2.8 L, Globulin 2.5, Albumin/Globulin Ratio 1.1, Vitamin B12 747, Folate 14.80, TSH 2.91 D 08/03/25 14:01: Hgb 7.5 L, Hct 23.0 L I & O for Last 24 hours: Intake & Output 07/31/25 08/01/25 08/02/25 08/03/25 23:59 23:59 23:59 23:59 Intake Total 240 / 380 2093.333 / 2093.333 1646.667 / 1646.667 150 / 150 Output Total 900 / 900 1000 / 1100 1350 / 1350 1350 / 1350 Balance -660 / -520 1093.333 / 993.333 296.667 / 296.667 -1200 / -1200 Weight 51.511 kg 51.8 kg 51.8 kg 50.031 kg Microbiology Reports for the Last 24 Hours: Microbiology 08/01/25 03:07 Blood - Other Blood Culture - Preliminary NO GROWTH AFTER 48 HOURS 08/01/25 03:07 Blood - Other Blood Culture - Preliminary NO GROWTH AFTER 48 HOURS Constitutional Constitutional: no acute distress *Routine HEENT Exam Head: Present normocephalic Eye: Present EOMI and PERRL ENT: Present mucous membranes moist *Routine Neck Exam Neck: Present supple; Absent lymphadenopathy *Routine Respiratory Exam Respiratory: Present CTA bilaterally *Routine Cardiovascular Exam Cardiovascular: Present RRR *Routine Abdominal Exam Abdominal: Present soft and normoactive bowel sounds; Absent tenderness *Routine Extremities Exam Extremities: Absent cyanosis, clubbing or edema Comments: Left hip dressed. *Routine Skin Exam Skin: Present warm; Absent rash *Routine Neurological Exam Neurological: Present alert Assessment and Plan *Assessment and plan (1) Closed intertrochanteric fracture of left hip: Status: Acute Category: Medical Code(s): S72.142A - Displaced intertrochanteric fracture of left femur, initial encounter for closed fracture (2) Aortic insufficiency: Status: Acute Category: Medical Code(s): I35.1 - Nonrheumatic aortic (valve) insufficiency (3) Hypertension: Status: Acute Qualifiers: Hypertension type: primary hypertension Qualified Code(s): I10 - Essential (primary) hypertension Category: Medical Code(s): I10 - Essential (primary) hypertension (4) Anxiety: Status: Acute Category: Medical Code(s): F41.9 - Anxiety disorder, unspecified (5) Recurrent falls: Status: Acute Category: Medical Code(s): R29.6 - Repeated falls (6) History of stroke: Status: Acute Category: Medical Code(s): Z86.73 - Personal history of transient ischemic attack (TIA), and cerebral infarction without residual deficits Plan Caity Villanueva is a 85-year-old female who fell getting out of her car. Sustained left proximal femur fracture on 07/31/2025. Discussed case with ER physician, request admission for surgical fixation. Agreed to admit for further care. Orthopedics consulted. Will have cardiology evaluate aortic insufficiency. Mechanical fall from standing height Proximal left femur fracture - Per review of imaging, had a closed intertrochanteric fracture left hip. ? Orthopedic surgery consulted, s/p cephalomedullary nailing left proximal femur on 08/01/2025. - Continue IV morphine 4 mg as needed for severe pain, [place] 5 -10 milligrams as needed for moderate to severe pain. Monitor for toxicity - Of note, has stridor and aphasia on exam. states this is baseline for patient has been present for years since stroke. Worse when she is anxious. Does not have any respiratory distress however. ? B12, folate, TSH normal. ? Follow-up PT/OT recommendations, anticipate SNF versus home health. Case management assisting. ? Aspirin 81 mg twice daily for DVT prophylaxis. #Acute toxic metabolic encephalopathy ? Patient seems more subdued over the past 2 days, is concerned that she is not responding as well as she normally does or conversational. ? Upon medication review, home buspirone dose was restarted at 20 mg instead of 10 mg 3 times daily. Buspirone has been discontinued for now. ? Also made morphine only has breakthrough pain, use [place] 5 to 10 mg as needed for moderate to severe pain. Patient is opioid na?ve, concern there is toxicity from acute opioid use. ? Continue to monitor. As above, infectious workup unremarkable. Follow-up repeat UA postop. #Acute on chronic anemia ? Hemoglobin down trended from 12.9-7.3 during admission, in the setting of postop and IV fluids. ? Hemoglobin did plateau at 7.5 this afternoon. Vital signs stable. No active signs of bleeding. ? Follow-up FOBT. ? Continuous cardiac telemetry. ? Follow-up morning CBC. #[place] on CKD ? Creatinine improved from 1.3-0.80 today with gentle IV fluids. Continue to monitor. #Fever of unknown origin, resolved ? Fever up to 101.3 07/02/2025 morning, initial WBCs 16.3, has since normalized. CRP up from 27-142 today, though this in the setting of post op. ? Broad workup including CXR, UA, full respiratory panel, blood cultures unremarkable for acute findings. No other focal infectious symptoms. ? Initially treated with cefepime, discontinued today as no focal infection found. ? Follow-up morning CBC, CRP. #History of CVA #History of aphasia, stridor ? Continue aspirin 81 mg twice daily as above. Severe aortic insufficiency Hypertension - Echo from March 2024 with the following: Low-normal LV systolic function (LVEF 50%). Normal LV dimensions (LVEDd=5.8 cm. LVESd=4.3 cm). Asynchronous septum. Mild RV dilation. Moderate to severe AI. Mild MR, mild TR, mild PI. - Repeat ECHO on 08/01/2025 revealed severe aortic insufficiency, trivial posterior pericardial effusion without signs of tamponade. Cardiology following, will continue further evaluation on outpatient basis. ?Hold home amlodipine as BP normal at this time. Anxiety: Continue Auvelity 1 tab twice daily. Continue BuSpar 20 mg 3 times a day. Full code Regular diet
[2025-08-03 19:50] VITALS: BP 135/57; PULSE 118; RESP 16; TEMP 36.4; O2SAT 93
[2025-08-03 22:15] LABS: Microscopic, Urine URINE MICROSCOPIC (MICROSCOPIC)
[2025-08-03 22:21] LABS: Bilirubin,Urine Negative (Negative); Color,Urine YELLOW (Yellow); Glucose,Urine (UA) Negative (Negative); Ketones,Urine Negative (Negative); Leukocyte Esterase,Urine Negative (Negative); PH,Urine 6.0 (5.0-8.5); Protein,Urine TRACE (Negative); Specific Gravity, Urine 1.020 (1.005-1.030); Urobilinogen,Urine 0.2 EU/dl (0.2)
[2025-08-03 22:36] LABS: Amorphous Sediment,Urine Trace /lpf; Bacteria,Urine 3+ /lpf
[2025-08-04] VITALS (25 sets, daily range): BP systolic 113–143; BP diastolic 47–83; PULSE 80–124; RESP 14–20; TEMP 36.4–36.9; O2SAT 2–99; BMI 18.9
[2025-08-04] MEDS: LACTATED RINGERS 1000ML 1,000 ML 75 ML IV ×2 (01:13→22:47)
--- NOTE | 2025-08-04 02:49 | PC.NURSE ---
Pt has a 18 g IV in her left AC, which has LR at 75 going thru it . PT answers yes and no question. She refused her asa 81 mg last night. Pt has urinated several times since her tucker was removed on day shift. Bed alarm is on. Call light is with in reach. TOI CERVANTES RN
[2025-08-04 06:09] LABS: Hematocrit 23.0 % (37.0-47.0); Hemoglobin 7.4 g/dL (12.2-16.2); Immature Granulocytes % 0.4 %; Mean Corpuscular HGB Conc 32.2 g/dL (31.8-35.4); Mean Corpuscular Hemoglobin 33.0 pg (27.0-31.2); Mean Corpuscular Volume 102.7 fl (81-99); Nucleated Red Blood Cells % 0 %; Platelet Count 178 K/mm3 (142-424); Red Blood Count 2.24 M/mm3 (4.20-5.40); Red Cell Distribution Width-SD 46.2 fL; White Blood Count 7.1 K/mm3 (4.8-10.8)
[2025-08-04 06:25] LABS: Chloride 106 mmol/L (98-107)
[2025-08-04 06:26] LABS: Albumin Level 2.7 g/dl (3.5-5.0); Potassium 3.6 mmoL/L (3.5-5.1); Sodium 136 mmol/L (136-145)
[2025-08-04 06:28] LABS: Blood Urea Nitrogen 16 mg/dl (7-17); Creatinine Clearance Estimated 32 mL/min (50-200); Creatinine,Serum 0.60 mg/dl (0.52-1.04); Estimated Glomerular Filt Rate 95 ml/min (>60); GFR (African American) 115 ML/MIN (>60)
[2025-08-04 06:29] LABS: Alanine Aminotransferase 31 U/L (12-78); Albumin/Globulin Ratio 1.1 (1.1-1.8); Alkaline Phosphatase 62 U/L (38-126); Anion Gap 6.6 mEq/L (5-15); Aspartate Amino Transferase 52 U/L (14-36); Bilirubin,Total 0.6 mg/dl (0.2-1.3); Calcium 7.2 mg/dl (8.4-10.2); Carbon Dioxide 27 mmol/L (22.0-30.0); Globulin 2.4 g/dL (1.3-3.2); Glucose 116 mg/dl (74-100); Total Protein,Serum 5.1 g/dl (6.3-8.2)
[2025-08-04 06:36] LABS: C-Reactive Protein 130.9 mg/L (0-4)
[2025-08-04 07:27] LABS: RBC Morphology Normal; Total Cells Counted 100
--- NOTE | 2025-08-04 07:29 | DIET.NUTRFU ---
Patient has increased risk of skin breakdown, Erlin score is 12 her meal intake fluctuates and she has a low BMI. She has recent sx and mental status has shown some decline per . She is tolerating regular diet with supplements in place. RD will continue to monitor
--- NOTE | 2025-08-04 09:30 | HMH.PHAAMS2 ---
- Antimicrobial Stewardship Review culture & sensitivity review Stewardship interventions: culture & sensitivity review, reviewed - no change Comments: URINE CX PENDING, BLOOD CX NO GROWTH AT 48 HR, PATIENT ON ROCEPHIN FOR UTI. AFEBRILE OVER 24 HR, WBC WNL AT 7.1 K/mm3.
[2025-08-04] MEDS: POLYETHYLENE GLYCOL 3350 17 GM PACKET PO (09:32)
[2025-08-04] MEDS: CEFTRIAXONE 1 GM 1 GM in 0.9 % SODIUM CHLORIDE 50 ML IV (09:32)
[2025-08-04] MEDS: ASPIRIN 81MG CHEWABLE TABLET 81 MG PO (09:34)
[2025-08-04] MEDS: OYSTER SHELL CALCIUM (ELEMENTAL) 500MG TAB 500 MG PO (09:34)
--- NOTE | 2025-08-04 10:54 | XR_ITS ---
FINAL REPORT CLINICAL HISTORY: sepsis workup COMPARISON: 07/31/2025 FINDINGS: The heart size is mildly enlarged. The patient is rotated to the right. The mediastinum is normal. There is no focal infiltrate or edema. Chronic changes are noted at the lung bases. There are no pleural effusions. There is no pneumothorax. 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 There is no acute osseous abnormality. IMPRESSION: No acute cardiopulmonary process. Chronic changes. Reviewed, Interpreted and Dictated by Jimy Newman MD Transcribed by Sandra Silva Authenticated and [facility]
--- NOTE | 2025-08-04 11:01 | DIET.NUTRFU ---
Patient now qualifies for severe protein calorie malnutrition her meal intake has been poor since sx, has had a decrease in mentation. Today had issues swallowing- holding liquid in mouth and not being able to use a straw. Meds were adjusted and treatment for UTI is in place. IVF is provided for hydration. Continue to assess mentation to address swallowing function. Reviewed severe protein calorie malnutrition with provider during rounds.
--- NOTE | 2025-08-04 12:46 | EXP.PN ---
Subjective *Date: 08/04/25 *Time: 12:46 Interval history: Patient continues to be very weak, poorly responsive, lethargic. is also concerned about this. Repeat UA grossly abnormal yesterday, continue IV ceftriaxone 1 g day 09/21. Will transfuse 2 units PRBC as patient is acutely anemic to hemoglobin 7.4 during admission postop. Follow-up response. [facility] ready to except patient tomorrow if stable. Exam Data for Last 24 hours Vital signs and Labs for Last 24 Hours: Temp Pulse Resp BP Pulse Ox O2 Del Method O2 Flow Rate 97.6 F 124 H 18 120/71 2 L Nasal Cannula 2 08/04/25 04:00 08/04/25 04:00 08/04/25 04:00 08/04/25 04:00 08/04/25 08:00 08/04/25 11:00 08/03/25 13:00 Laboratory Results - last 24 hr 08/01/25 16:08: Crossmatch (AHG) See Detail 08/03/25 14:01: Hgb 7.5 L, Hct 23.0 L 08/03/25 22:10: Urine Color Yellow, Urine Appearance Clear, Urine pH 6.0, Ur Specific [place] 1.020, Urine Protein Trace, Urine Glucose (UA) Negative, Urine Ketones Negative, Urine Blood 1+ A, Urine Nitrate Negative, Urine Bilirubin Negative, Urine Urobilinogen 0.2, Ur Leukocyte Esterase Negative, Urine RBC 10-20, Urine WBC 5-10, Ur Squamous Epith Cells 10-20, Amorphous Sediment Trace, Urine Bacteria 3+ 08/04/25 05:42: WBC 7.1, RBC 2.24 L, Hgb 7.4 L, Hct 23.0 L, MCV 102.7 H, MCH 33.0 H, MCHC 32.2, RDW 12.3, Plt Count 178, MPV 9.3, Neut % (Auto) 81.1 H, Lymph % (Auto) 7.3 L, [place] % (Auto) 10.2 H, Eos % (Auto) 0.7, Baso % (Auto) 0.3, Neut # (Auto) 5.7, Lymph # (Auto) 0.5 L, [place] # (Auto) 0.7, Eos # (Auto) 0.1, Baso # (Auto) 0.0, Total Counted 100, Neutrophils % (Manual) 89 H, Lymphocytes % (Manual) 5 L, Monocytes % (Manual) 5, Eosinophils % (Manual) 1, Platelet Estimate Normal, RBC Morphology Normal, Sodium 136, Potassium 3.6, Chloride 106, Carbon Dioxide 27, Anion Gap 6.6, BUN 16 D, Creatinine 0.60 D, Estimated Creat Clear 32, Estimated GFR 95, Est GFR ( Amer) 115 D, Glucose 116 H, Calcium 7.2 L, Total Bilirubin 0.6, AST 52 H D, ALT 31, Alkaline Phosphatase 62, C-Reactive Protein 130.9 H, Total Protein 5.1 L, Albumin 2.7 L, Globulin 2.4, Albumin/Globulin Ratio 1.1, Blood Type Confirm A Positive I & O for Last 24 hours: Intake & Output 08/01/25 08/02/25 08/03/25 08/04/25 23:59 23:59 23:59 23:59 Intake Total 2093.333 / 2093.333 1646.667 / 1626.594 8046 / 1270 170 / 170 Output Total 1000 / 1100 1350 / 1350 2049 / 2049 250 / 250 Balance 1093.333 / 993.333 296.667 / 296.667 -900 / -780 -80 / -80 Weight 51.8 kg 51.8 kg 50.031 kg 50.303 kg Constitutional Constitutional: no acute distress Comments: Confused *Routine HEENT Exam Head: Present normocephalic Eye: Present EOMI and PERRL ENT: Present mucous membranes moist *Routine Neck Exam Neck: Present supple; Absent lymphadenopathy *Routine Respiratory Exam Respiratory: Present CTA bilaterally *Routine Cardiovascular Exam Cardiovascular: Present RRR *Routine Abdominal Exam Abdominal: Present soft and normoactive bowel sounds; Absent tenderness *Routine Extremities Exam Extremities: Absent cyanosis, clubbing or edema Comments: Left hip dressed. *Routine Skin Exam Skin: Present warm; Absent rash *Routine Neurological Exam Neurological: Present alert Assessment and Plan *Assessment and plan (1) Closed intertrochanteric fracture of left hip: Status: Acute Category: Medical Code(s): S72.142A - Displaced intertrochanteric fracture of left femur, initial encounter for closed fracture (2) Aortic insufficiency: Status: Acute Category: Medical Code(s): I35.1 - Nonrheumatic aortic (valve) insufficiency (3) Hypertension: Status: Acute Qualifiers: Hypertension type: primary hypertension Qualified Code(s): I10 - Essential (primary) hypertension Category: Medical Code(s): I10 - Essential (primary) hypertension (4) Anxiety: Status: Acute Category: Medical Code(s): F41.9 - Anxiety disorder, unspecified (5) Recurrent falls: Status: Acute Category: Medical Code(s): R29.6 - Repeated falls (6) History of stroke: Status: Acute Category: Medical Code(s): Z86.73 - Personal history of transient ischemic attack (TIA), and cerebral infarction without residual deficits Plan Caity Villanueva is a 85-year-old female who fell getting out of her car. Sustained left proximal femur fracture on 07/31/2025. Discussed case with ER physician, request admission for surgical fixation. Agreed to admit for further care. Orthopedics consulted. Will have cardiology evaluate aortic insufficiency. Mechanical fall from standing height Proximal left femur fracture - Per review of imaging, had a closed intertrochanteric fracture left hip. ? Orthopedic surgery consulted, s/p cephalomedullary nailing left proximal femur on 08/01/2025. - Continue IV morphine 4 mg as needed for severe pain, [place] 5 -10 milligrams as needed for moderate to severe pain. Monitor for toxicity - Of note, has stridor and aphasia on exam. states this is baseline for patient has been present for years since stroke. Worse when she is anxious. Does not have any respiratory distress however. ? B12, folate, TSH normal. ? Follow-up PT/OT recommendations, anticipate SNF versus home health. Case management assisting. ? Aspirin 81 mg twice daily for DVT prophylaxis. ? [facility] ready to except patient tomorrow if stable. #Acute toxic metabolic encephalopathy ? Patient seems more subdued over the past 3 days, is concerned that she is not responding as well as she normally does or conversational. ? Upon medication review on 08/03/2025, home buspirone dose was restarted at 20 mg instead of 10 mg 3 times daily. Buspirone has been discontinued for now. ? Also made morphine only has breakthrough pain, use [place] 5 to 10 mg as needed for moderate to severe pain. Patient is opioid na?ve, concern there is toxicity from acute opioid use. ? Patient continues to be very weak, poorly responsive, lethargic. is also concerned about this. ? Repeat UA grossly abnormal yesterday, continue IV ceftriaxone 1 g day 09/21. ? Will transfuse 2 units PRBC as patient is acutely anemic to hemoglobin 7.4 during admission postop. Follow-up response. ?Follow-up urine culture. #Acute on chronic anemia ? Hemoglobin down trended from 12.9-7.4 during admission, in the setting of postop and IV fluids. Patient is tachycardic since surgery. No active signs of bleeding however. ? Will transfuse 2 units PRBC as patient is acutely anemic to hemoglobin 7.4 during admission postop. Follow-up response. ? Follow-up FOBT. ? Continuous cardiac telemetry. ? Follow-up morning CBC. #[place] on CKD ? Creatinine improved from 1.3-0.60 today with gentle IV fluids. Continue to monitor. #Fever of unknown origin, resolved ? Fever up to 101.3 07/02/2025 morning, initial WBCs 16.3, has since normalized. ? Broad workup including initial CXR, UA, full respiratory panel, blood cultures unremarkable for acute findings. No other focal infectious symptoms. ? Follow-up morning CBC, CRP. #History of CVA #History of aphasia, stridor ? Continue aspirin 81 mg twice daily as above. #Severe protein calorie malnutrition ? Nutrition consulted, providing counseling and recommendations. Severe aortic insufficiency Hypertension - Echo from March 2024 with the following: Low-normal LV systolic function (LVEF 50%). Normal LV dimensions (LVEDd=5.8 cm. LVESd=4.3 cm). Asynchronous septum. Mild RV dilation. Moderate to severe AI. Mild MR, mild TR, mild PI. - Repeat ECHO on 08/01/2025 revealed severe aortic insufficiency, trivial posterior pericardial effusion without signs of tamponade. Cardiology following, will continue further evaluation on outpatient basis. ?Hold home amlodipine as BP normal at this time. Anxiety: Continue Auvelity 1 tab twice daily. Continue BuSpar 20 mg 3 times a day. Full code Regular diet
[2025-08-04] MEDS: KETOROLAC 15MG/ML VIAL 15 MG IV ×2 (14:25→23:03)
--- NOTE | 2025-08-04 14:53 | P.PN_ITS ---
Subjective *Date: 08/04/25 *Time: 14:53 Interval history: Patient seen with family at bedside. Patient continues to remain confused and not oriented and lethargic. She was able to drink Ensure this morning but has not had an appetite to eat. Ortho Exam (Inpt) Vital signs and Labs for Last 24 Hours: Temp Pulse Resp BP Pulse Ox O2 Del Method O2 Flow Rate 98.3 F 120 H 20 143/58 H 99 Room Air 2 08/04/25 12:00 08/04/25 12:00 08/04/25 12:00 08/04/25 12:00 08/04/25 12:00 08/04/25 12:44 08/03/25 13:00 Laboratory Results - last 24 hr 08/01/25 16:08: Crossmatch (AHG) See Detail 08/03/25 22:10: Urine Color Yellow, Urine Appearance Clear, Urine pH 6.0, Ur Specific [place] 1.020, Urine Protein Trace, Urine Glucose (UA) Negative, Urine Ketones Negative, Urine Blood 1+ A, Urine Nitrate Negative, Urine Bilirubin Negative, Urine Urobilinogen 0.2, Ur Leukocyte Esterase Negative, Urine RBC 10- 20, Urine WBC 5-10, Ur Squamous Epith Cells 10-20, Amorphous Sediment Trace, Urine Bacteria 3+ 08/04/25 05:42: WBC 7.1, RBC 2.24 L, Hgb 7.4 L, Hct 23.0 L, MCV 102.7 H, MCH 33.0 H, MCHC 32.2, RDW 12.3, Plt Count 178, MPV 9.3, Neut % (Auto) 81.1 H, Lymph % (Auto) 7.3 L, [place] % (Auto) 10.2 H, Eos % (Auto) 0.7, Baso % (Auto) 0.3, Neut # (Auto) 5.7, Lymph # (Auto) 0.5 L, [place] # (Auto) 0.7, Eos # (Auto) 0.1, Baso # (Auto) 0.0, Total Counted 100, Neutrophils % (Manual) 89 H, Lymphocytes % (Manual) 5 L, Monocytes % (Manual) 5, Eosinophils % (Manual) 1, Platelet Estimate Normal, RBC Morphology Normal, Sodium 136, Potassium 3.6, Chloride 106, Carbon Dioxide 27, Anion Gap 6.6, BUN 16 D, Creatinine 0.60 D, Estimated Creat Clear 32, Estimated GFR 95, Est GFR ( Amer) 115 D, Glucose 116 H, Calcium 7.2 L, Total Bilirubin 0.6, AST 52 H D, ALT 31, Alkaline Phosphatase 62, C-Reactive Protein 130.9 H, Total Protein 5.1 L, Albumin 2.7 L, Globulin 2.4, Albumin/Globulin Ratio 1.1, Blood Type Confirm A Positive 08/04/25 12:23: Blood Type A Positive, Antibody Screen Negative, Crossmatch (AHG) See Detail I & O for Labs for Last 24 Hours: Intake & Output 08/01/25 08/02/25 08/03/25 08/04/25 23:59 23:59 23:59 23:59 Intake Total 2093.333 / 2093.333 1646.667 / 4760.655 7153 / 1270 170 / 170 Output Total 1000 / 1100 1350 / 1350 0 / 2049 250 / 250 Balance 1093.333 / 993.333 296.667 / 296.667 -900 / -780 -80 / -80 Weight 114 lb 3.2 oz 114 lb 3.191 oz 110 lb 4.8 oz 110 lb 14.4 oz Additional findings:: Left hip: No pain with passive internal/external rotation. Surgical dressing intact. No evidence of drainage. Assessment and Plan *Assessment and plan (1) Closed intertrochanteric fracture of left hip: Status: Acute Qualifiers: Encounter type: subsequent encounter Fracture alignment: displaced Fracture healing: with routine healing Qualified Code(s): S72.142D - Displaced intertrochanteric fracture of left femur, subsequent encounter for closed fracture with routine healing Category: Medical Code(s): S72.142A - Displaced intertrochanteric fracture of left femur, initial encounter for closed fracture Plan Transfusion today. Will look for [facility] for [facility]. She is allowed to be weightbearing as tolerated on the walker left lower extremity. Return to the clinic for staple removal 2 weeks postop.
[2025-08-04] MEDS: ACETAMINOPHEN 1,000MG/100ML VIAL 1000 MG IV (18:26)
[2025-08-04 22:50] LABS: Hematocrit 29.5 % (37.0-47.0)
[2025-08-04 22:53] LABS: Hemoglobin 10.1 g/dL (12.2-16.2)
[2025-08-04] MEDS: HALOPERIDOL LACTATE 5 MG/ML VIAL 3 MG IV (23:32)
[2025-08-05] VITALS (8 sets, daily range): BP systolic 131–157; BP diastolic 52–89; PULSE 75–110; RESP 14–20; TEMP 36.4–37.2; O2SAT 93–98; BMI 20.2
[2025-08-05 06:57] LABS: Hematocrit 31.4 % (37.0-47.0); Hemoglobin 10.7 g/dL (12.2-16.2); Immature Granulocytes % 0.3 %; Mean Corpuscular HGB Conc 34.1 g/dL (31.8-35.4); Mean Corpuscular Hemoglobin 32.7 pg (27.0-31.2); Mean Corpuscular Volume 96.0 fl (81-99); Nucleated Red Blood Cells % 0 %; Platelet Count 192 K/mm3 (142-424); Red Blood Count 3.27 M/mm3 (4.20-5.40); Red Cell Distribution Width-SD 51.8 fL; White Blood Count 7.0 K/mm3 (4.8-10.8)
[2025-08-05 06:59] LABS: Albumin Level 3.0 g/dl (3.5-5.0); Chloride 106 mmol/L (98-107); Potassium 3.5 mmoL/L (3.5-5.1); Sodium 137 mmol/L (136-145)
[2025-08-05 07:02] LABS: Alanine Aminotransferase 41 U/L (12-78); Albumin/Globulin Ratio 1.2 (1.1-1.8); Alkaline Phosphatase 71 U/L (38-126); Anion Gap 4.5 mEq/L (5-15); Aspartate Amino Transferase 64 U/L (14-36); Bilirubin,Total 1.5 mg/dl (0.2-1.3); Blood Urea Nitrogen 16 mg/dl (7-17); Carbon Dioxide 30 mmol/L (22.0-30.0); Creatinine Clearance Estimated 34 mL/min (50-200); Creatinine,Serum 0.60 mg/dl (0.52-1.04); Estimated Glomerular Filt Rate 95 ml/min (>60); GFR (African American) 115 ML/MIN (>60); Globulin 2.6 g/dL (1.3-3.2); Total Protein,Serum 5.6 g/dl (6.3-8.2)
[2025-08-05 07:03] LABS: Calcium 8.0 mg/dl (8.4-10.2); Glucose 105 mg/dl (74-100)
[2025-08-05] MEDS: CEFTRIAXONE 1 GM 1 GM in 0.9 % SODIUM CHLORIDE 50 ML IV (09:44)
[2025-08-05] MEDS: POLYETHYLENE GLYCOL 3350 17 GM PACKET PO (09:44)
--- NOTE | 2025-08-05 10:44 | HMH.PHAAMS2 ---
- Antimicrobial Stewardship Review culture & sensitivity review Stewardship interventions: culture & sensitivity review (CURRENTLY ON ROCEPHIN, WBC WNL NOW, AFEBRILE, NO GROWTH IN CX.)
[2025-08-05] MEDS: LACTATED RINGERS 1000ML 1,000 ML 75 ML IV (13:18)
--- NOTE | 2025-08-05 15:20 | P.PN_ITS ---
Subjective *Date: 08/05/25 *Time: 15:20 Interval history: Slept better last night, did receive a dose of Haldol however early in the evening. More alert today. Still not answering questions. Hard of hearing, to bring hearing aids. Poor p.o. intake this morning. Remained stable on 2 L oxygen. No fevers. Medical Exam Vital signs and Labs for Last 24 Hours: Vital Signs Temp Pulse Pulse Resp BP BP Pulse Ox 08/05/25 12:00 110 H 08/05/25 08:00 97.5 F L 92 H 14 157/56 H 93 L 08/05/25 08:00 90 08/05/25 06:54 08/05/25 05:00 08/05/25 04:00 97.9 F 77 16 139/52 L 98 08/05/25 04:00 75 08/05/25 03:00 08/05/25 01:00 08/05/25 00:00 98.0 F 83 16 132/60 93 L 08/05/25 00:00 100 H 08/04/25 21:36 83 16 113/49 L 99 08/04/25 21:00 08/04/25 20:00 80 08/04/25 20:00 2 L 08/04/25 19:45 84 16 130/83 99 08/04/25 18:46 08/04/25 18:45 98 F 98 H 20 116/56 L 99 08/04/25 18:30 98.2 F 92 H 20 123/56 L 99 08/04/25 18:15 97.9 F 92 H 20 130/65 98 08/04/25 18:00 97.9 F 111 H 20 128/65 96 08/04/25 17:55 97.5 F L 106 H 20 136/47 L 96 08/04/25 17:50 97.7 F 90 20 133/62 99 08/04/25 17:45 97.5 F L 107 H 20 123/55 L 97 08/04/25 17:38 97.7 F 110 H 20 123/55 L 95 08/04/25 17:24 97.7 F 117 H 20 123/52 L 99 08/04/25 17:05 97.9 F 94 H 20 125/65 99 08/04/25 17:00 08/04/25 16:05 98 H 20 127/56 L 95 08/04/25 15:50 98 H 20 122/63 99 08/04/25 15:35 98 F 90 20 135/60 99 O2 Del Method O2 Flow Rate 08/05/25 12:00 08/05/25 08:00 Nasal Cannula 2 08/05/25 08:00 08/05/25 06:54 Nasal Cannula 2 08/05/25 05:00 Nasal Cannula 2 08/05/25 04:00 Nasal Cannula 2 08/05/25 04:00 08/05/25 03:00 Nasal Cannula 2 08/05/25 01:00 Nasal Cannula 2 08/05/25 00:00 Nasal Cannula 2 08/05/25 00:00 08/04/25 21:36 08/04/25 21:00 Nasal Cannula 2 08/04/25 20:00 08/04/25 20:00 Nasal Cannula 08/04/25 19:45 08/04/25 18:46 Nasal Cannula 2 08/04/25 18:45 08/04/25 18:30 08/04/25 18:15 08/04/25 18:00 08/04/25 17:55 08/04/25 17:50 08/04/25 17:45 08/04/25 17:38 08/04/25 17:24 08/04/25 17:05 08/04/25 17:00 Nasal Cannula 2 08/04/25 16:05 08/04/25 15:50 08/04/25 15:35 Intake and Output 08/04/25 08/05/25 08/05/25 23:59 07:59 15:59 Intake Total 1525 / 1695 1150 / 1150 Output Total 600 / 850 700 / 1250 550 / 1250 Balance 925 / 845 -700 / -100 600 / -100 Intake: Intake, Oral Amount 100 / 100 Intake, Other Amount Red Blood Cells Unit [id number] Intake, Total IV Amount 1000 / 1050 1050 / 1050 Ceftriaxone 1 gm 1 gm In 0.9 % 50 / 50 Sodium Chloride 50 ml @ 100 mls /hr IV Q24H [facility] Rx#:[id number] Lactated Ringers 1000ML 1,000 1000 / 1000 1000 / 1000 ml @ 75 mls/hr IV .[id number] [facility] Rx#:[id number] Intake (Blood Product) Amt 500 / 500 Red Blood Cells Unit 250 / 250 [id number] Red Blood Cells Unit 250 / 250 [id number] Output: Output, Urine Amount 600 / 850 700 / 1250 550 / 1250 Other: Number of Unmeasured Voids 0 1 1 Weight 53.841 kg Patient Weight 08/05/25 23:59 Weight 53.841 kg Laboratory Results - last 24 hr 08/04/25 12:23: Blood Type A Positive, Antibody Screen Negative, Crossmatch (AHG) See Detail 08/04/25 22:40: Hgb 10.1 L D, Hct 29.5 L 08/05/25 06:31: WBC 7.0, RBC 3.27 L D, Hgb 10.7 L, Hct 31.4 L, MCV 96.0, MCH 32.7 H, MCHC 34.1, RDW 14.6, Plt Count 192, MPV 9.2, Neut % (Auto) 78.1, Lymph % (Auto) 9.3 L, [place] % (Auto) 9.8 H, Eos % (Auto) 1.9, Baso % (Auto) 0.6, Neut # (Auto) 5.4, Lymph # (Auto) 0.7, [place] # (Auto) 0.7, Eos # (Auto) 0.1, Baso # (Auto) 0.0, Sodium 137, Potassium 3.5, Chloride 106, Carbon Dioxide 30, Anion Gap 4.5 L, BUN 16, Creatinine 0.60, Estimated Creat Clear 34, Estimated GFR 95, Est GFR ( Amer) 115, Glucose 105 H, Calcium 8.0 L, Total Bilirubin 1.5 H, AST 64 H, ALT 41 D, Alkaline Phosphatase 71, Total Protein 5.6 L, Albumin 3.0 L D, Globulin 2.6, Albumin/Globulin Ratio 1.2 I & O for Labs for Last 24 Hours: Intake & Output 08/02/25 08/03/25 08/04/25 08/05/25 23:59 23:59 23:59 23:59 Intake Total 1646.667 / 0905.175 8518 / 1270 1695 / 1695 1150 / 1150 Output Total 1350 / 1350 2049 2049 850 / 850 1250 / 1250 Balance 296.667 / 296.667 -900 / -780 845 / 845 -100 / -100 Weight 51.8 kg 50.031 kg 50.303 kg 53.841 kg Microbiology Reports for the Last 24 Hours: Microbiology 08/03/25 22:10 Urine,Clean Catch Urine Culture - Final NO GROWTH AFTER 48 HOURS 08/01/25 03:07 Blood - Other Blood Culture - Preliminary NO GROWTH AFTER 4 DAYS 08/01/25 03:07 Blood - Other Blood Culture - Preliminary NO GROWTH AFTER 4 DAYS Constitutional: Present no acute distress, thin and chronically ill appearing Head: Present atraumatic Respiratory: Present normal respiratory effort; Absent respiratory distress, rhonchi or wheezes Cardiac: Present Reg Rate and Rhythm GI: Present soft and normal bowel sounds; Absent tenderness Extremities: Present normal inspection and full ROM Skin: Present intact; Absent erythema Neuro: Present Grossly Intact, alert, awake and moves all extremities Assessment and Plan *Assessment and plan (1) Closed intertrochanteric fracture of left hip: Status: Acute Qualifiers: Encounter type: subsequent encounter Fracture alignment: displaced Fracture healing: with routine healing Qualified Code(s): S72.142D - Displaced intertrochanteric fracture of left femur, subsequent encounter for closed frac ture with routine healing Category: Medical Code(s): S72.142A - Displaced intertrochanteric fracture of left femur, initial encounter for closed fracture (2) Aortic insufficiency: Status: Acute Category: Medical Code(s): I35.1 - Nonrheumatic aortic (valve) insufficiency (3) Hypertension: Status: Acute Qualifiers: Hypertension type: primary hypertension Qualified Code(s): I10 - Essential (primary) hypertension Category: Medical Code(s): I10 - Essential (primary) hypertension (4) Anxiety: Status: Acute Category: Medical Code(s): F41.9 - Anxiety disorder, unspecified (5) Recurrent falls: Status: Acute Category: Medical Code(s): R29.6 - Repeated falls (6) History of stroke: Status: Acute Category: Medical Code(s): Z86.73 - Personal history of transient ischemic attack (TIA), and cerebral infarction without residual deficits Plan Caity Villanueva is a 85-year-old female who fell getting out of her car. Sustained left proximal femur fracture on 07/31/2025. Discussed case with ER physician, request admission for surgical fixation. Agreed to admit for further care. Orthopedics consulted. Responded well to surgery. Awaiting improvement in mentation. Anticipate discharge tomorrow. Problems addressed as follows: Mechanical fall from standing height Proximal left femur fracture - Per review of imaging, had a closed intertrochanteric fracture left hip. ? Orthopedic surgery consulted, s/p cephalomedullary nailing left proximal femur on 08/01/2025. - Discontinue IV morphine. Continue [place] 5 mg as needed for severe pain every 6 hours. ? PT and OT recommend skilled therapy. Awaiting improvement in mentation for discharge to rehab. ? Aspirin 81 mg twice daily for DVT prophylaxis. #Acute toxic encephalopathy versus delirium in the setting of underlying dementia - Patient seems more subdued over the past 3 days, is concerned that she is not responding as well as she normally does or conversational. ? Upon medication review on 08/03/2025, home buspirone dose was restarted at 20 mg instead of 10 mg 3 times daily. Buspirone has been discontinued for now. ? Discontinued morphine. Decrease Flippin dose. - Will hold on any further Haldol doses. - Is somewhat improved today but still not responding to questions. Will give her 24 more hours to monitor for improvement. - Continue antibiotics empirically with ceftriaxone 1 g daily, today is day 3 of 5 - Status posttransfusion 2 units packed red blood cells yesterday. Hemoglobin stable today at 10.7 - Urine and blood cultures negative at at least 48 hours #Acute on chronic anemia ? Hemoglobin improved after transfusion yesterday. Stable at 10.7. No signs of bleeding. Platelets 192. White count 7. - Continuous cardiac telemetry. ? Repeat CBC, CMP ordered for the morning. #BRITTON on CKD ? Creatinine bump to 1.3 consistent with BRITTON, back to her baseline. Stable this morning at 0.6. BUN 16. Potassium 3.5. #Fever of unknown origin, resolved ? Fever up to 101.3 08/01/2025 morning, initial WBCs 16.3, has since normalized. ? Broad workup including initial CXR, UA, full respiratory panel, blood cultures unremarkable for acute findings. No other focal infectious symptoms. #History of CVA #History of aphasia, stridor ? Continue aspirin 81 mg twice daily as above. #Severe protein calorie malnutrition: Nutrition consulted, providing counseling and recommendations. Severe aortic insufficiency Hypertension - Echo from March 2024 with the following: Low-normal LV systolic function (LVEF 50%). Normal LV dimensions (LVEDd=5.8 cm. LVESd=4.3 cm). Asynchronous septum. Mild RV dilation. Moderate to severe AI. Mild MR, mild TR, mild PI. - Repeat ECHO on 08/01/2025 revealed severe aortic insufficiency, trivial posterior pericardial effusion without signs of tamponade. Cardiology following, will continue further evaluation on outpatient basis. ?Hold home amlodipine as BP normal at this time. Anxiety: Continue [place]vel[place] 1 tab twice daily. Continue BuSpar 20 mg 3 times a d ay. Full code Regular diet
[2025-08-05] MEDS: ACETAMINOPHEN 1,000MG/100ML VIAL 1000 MG IV (18:06)
[2025-08-05] MEDS: KETOROLAC 15MG/ML VIAL 15 MG IV (20:48)
[2025-08-06] VITALS (7 sets, daily range): BP systolic 123–147; BP diastolic 45–85; PULSE 70–110; RESP 12–16; TEMP 36.5–37.3; O2SAT 93–96; BMI 19.2
--- NOTE | 2025-08-06 04:10 | PC.NURSE ---
Addendum entered by Kennedi Razo RN 08/06/25 04:58: Re: *Physical assessment (see nursing shift biophysical intervention) was performed as appropriately this shift. Original Note: Patient is alert to self. Is hard of hearing, utilizes hearing aids. She can respond with nodding/shaking of her head to closed-ended questions. Maintains eye contact, arouses to calling of name, shaking, and pain. Patient has been minimally verbal to nonverbal this shift. Finds comfort when nursing staff grasps her hand when interacting with her; squishy frog stress ball also remains at bedside. She was observed to be resting in bed with eyes closed, respirations shallow on 2 L of oxygen via nasal cannula, and no apparent distress throughout the majority of the night. Oxygen saturations remain >90%. When assessing for pain, the patient localizes to the pain site (has strength to move her leg to indicate as well) and nods her head when asked about pain. Additionally noted to ab initio etl developer the bed rails whenever she is having pain. Taylor-Leo Faces pain scale was utilized to evaluate pain severity. Toradol IV administered per MAR for left hip pain relief; patient observed to rest with eyes closed after receiving. Left hip fracture operative site was assessed; dressing remains clean, dry, and intact. Patient has been unable to take food items and medications by mouth this shift due to impaired comprehension to swallow (and to do so safely), altered mental status, and great concern for aspiration. Is dependent on others for many aspects of her care, has difficulty following the majority of commands at this time. Mouth swabs were provided to perform oral care and to moisten mucus membranes; lips were noted to be dry, tongue is fissured. Physical assessment (see nursing shift biophysical intervention) was performed as appropriately per MAR. On telemetry. Repositioned/turned every 2 hours. Maximum assistance required with ambulation/transfers. Incontinent of bowel/bladder; a female purewick and brief remain in place for elimination needs. Urine manas in color. At this time, the patient remains resting in bed with no new needs indicated. Bed alarm on. Call light within reach.
[2025-08-06] MEDS: KETOROLAC 15MG/ML VIAL 15 MG IV ×2 (06:30→14:39)
[2025-08-06 07:19] LABS: Hematocrit 32.0 % (37.0-47.0); Hemoglobin 10.3 g/dL (12.2-16.2); Immature Granulocytes % 0.4 %; Mean Corpuscular HGB Conc 32.2 g/dL (31.8-35.4); Mean Corpuscular Hemoglobin 31.8 pg (27.0-31.2); Mean Corpuscular Volume 98.8 fl (81-99); Nucleated Red Blood Cells % 0 %; Platelet Count 227 K/mm3 (142-424); Red Blood Count 3.24 M/mm3 (4.20-5.40); Red Cell Distribution Width-SD 51.6 fL; White Blood Count 6.8 K/mm3 (4.8-10.8)
[2025-08-06 07:33] LABS: Albumin Level 3.0 g/dl (3.5-5.0); Chloride 106 mmol/L (98-107); Potassium 3.2 mmoL/L (3.5-5.1); Sodium 138 mmol/L (136-145)
[2025-08-06 07:35] LABS: Blood Urea Nitrogen 17 mg/dl (7-17); Creatinine Clearance Estimated 33 mL/min (50-200); Creatinine,Serum 0.60 mg/dl (0.52-1.04); Estimated Glomerular Filt Rate 95 ml/min (>60); GFR (African American) 115 ML/MIN (>60)
[2025-08-06 07:36] LABS: Alanine Aminotransferase 40 U/L (12-78); Albumin/Globulin Ratio 1.1 (1.1-1.8); Alkaline Phosphatase 77 U/L (38-126); Anion Gap 8.2 mEq/L (5-15); Aspartate Amino Transferase 56 U/L (14-36); Bilirubin,Total 1.3 mg/dl (0.2-1.3); Calcium 8.1 mg/dl (8.4-10.2); Carbon Dioxide 27 mmol/L (22.0-30.0); Globulin 2.7 g/dL (1.3-3.2); Glucose 96 mg/dl (74-100); Total Protein,Serum 5.7 g/dl (6.3-8.2)
[2025-08-06] MEDS: POLYETHYLENE GLYCOL 3350 17 GM PACKET PO (08:36)
[2025-08-06] MEDS: CEFTRIAXONE 1 GM 1 GM in 0.9 % SODIUM CHLORIDE 50 ML IV (08:36)
--- NOTE | 2025-08-06 08:54 | EXP.ACUTE.PN ---
Subjective *Date: 08/06/25 *Time: 08:54 Interval history: Slept well overnight. Awake this morning but not following commands. Nursing unable to get her to take her morning meds, will reevaluate later in the morning. She is more interactive this morning at time of rounds than she was yesterday. Making slow gradual improvement daily. Improved yesterday and drank boost in the afternoon as well as took meds in the afternoon. Room air saturation in the mid 90s. Off supplemental oxygen Medical Exam Vital signs and Labs for Last 24 Hours: Vital Signs Temp Pulse Pulse Pulse Resp BP Pulse Ox 08/06/25 08:14 08/06/25 08:00 90 08/06/25 06:50 08/06/25 05:00 08/06/25 04:00 75 08/06/25 04:00 98.1 F 81 16 142/49 H 96 08/06/25 03:00 08/06/25 01:00 08/06/25 00:00 70 08/05/25 23:50 98.2 F 87 16 145/52 H 98 08/05/25 23:00 08/05/25 21:00 08/05/25 20:00 08/05/25 20:00 95 H 08/05/25 19:58 97.9 F 98 H 16 157/60 H 97 08/05/25 18:59 08/05/25 18:44 08/05/25 17:00 08/05/25 16:00 98.9 F 89 20 131/78 96 08/05/25 16:00 110 H 08/05/25 15:00 08/05/25 13:00 08/05/25 12:00 98.2 F 87 18 142/89 H 94 L 08/05/25 12:00 110 H 08/05/25 11:00 08/05/25 09:00 O2 Del Method O2 Flow Rate 08/06/25 08:14 Room Air 08/06/25 08:00 08/06/25 06:50 Nasal Cannula 2 08/06/25 05:00 Nasal Cannula 2 08/06/25 04:00 08/06/25 04:00 Nasal Cannula 2 08/06/25 03:00 Nasal Cannula 2 08/06/25 01:00 Nasal Cannula 2 08/06/25 00:00 08/05/25 23:50 Nasal Cannula 2 08/05/25 23:00 Nasal Cannula 2 08/05/25 21:00 Nasal Cannula 2 08/05/25 20:00 Nasal Cannula 2 08/05/25 20:00 08/05/25 19:58 Nasal Cannula 2 08/05/25 18:59 Nasal Cannula 08/05/25 18:44 Nasal Cannula 2 08/05/25 17:00 Nasal Cannula 08/05/25 16:00 Nasal Cannula 2 08/05/25 16:00 08/05/25 15:00 Nasal Cannula 08/05/25 13:00 Nasal Cannula 2 08/05/25 12:00 Nasal Cannula 2 08/05/25 12:00 08/05/25 11:00 Nasal Cannula 2 08/05/25 09:00 Nasal Cannula Intake and Output 08/05/25 08/06/25 08/06/25 23:59 07:59 15:59 Intake Total 297.5 / 1452.5 5 / 5 Output Total 350 / 1600 425 / 425 Balance -52.5 / -147.5 -420 / -420 Intake: Intake, Oral Amount 5 / 5 Intake, Total IV Amount 297.5 / 1347.5 Lactated Ringers 1000ML 1,000 297.5 / 1297.5 ml @ 75 mls/hr IV .[id number] [facility] Rx#:[id number] Output: Output, Urine Amount 350 / 1600 425 / 425 Other: Number of Unmeasured Voids 0 0 Number of Bowel Movements 1 Weight 51.12 kg Patient Weight 08/06/25 23:59 Weight 51.12 kg Laboratory Results - last 24 hr 08/06/25 06:25: WBC 6.8, RBC 3.24 L, Hgb 10.3 L, Hct 32.0 L, MCV 98.8, MCH 31.8 H, MCHC 32.2, RDW 14.4, Plt Count 227, MPV 9.5, Neut % (Auto) 79.5, Lymph % (Auto) 7.2 L, [place] % (Auto) 11.3 H, Eos % (Auto) 1.2, Baso % (Auto) 0.4, Neut # (Auto) 5.4, Lymph # (Auto) 0.5 L, [place] # (Auto) 0.8, Eos # (Auto) 0.1, Baso # (Auto) 0.0, Sodium 138, Potassium 3.2 L, Chloride 106, Carbon Dioxide 27, Anion Gap 8.2, BUN 17, Creatinine 0.60, Estimated Creat Clear 33, Estimated GFR 95, Est GFR ( Amer) 115, Glucose 96, Calcium 8.1 L, Total Bilirubin 1.3, AST 56 H, ALT 40, Alkaline Phosphatase 77, Total Protein 5.7 L, Albumin 3.0 L, Globulin 2.7, Albumin/Globulin Ratio 1.1 I & O for Labs for Last 24 Hours: Intake & Output 08/03/25 08/04/25 08/05/25 08/06/25 23:59 23:59 23:59 23:59 Intake Total 1150 / 1270 1695 / 1695 1447.5 / 1452.5 Output Total 2049 / 2049 850 / 850 1600 / 1600 425 / 425 Balance -900 / -780 845 / 845 -152.5 / -147.5 -420 / -420 Weight 50.031 kg 50.303 kg 53.841 kg 51.12 kg Microbiology Reports for the Last 24 Hours: Microbiology 08/01/25 03:07 Blood - Other Blood Culture - Final NO GROWTH AFTER 5 DAYS 08/01/25 03:07 Blood - Other Blood Culture - Final NO GROWTH AFTER 5 DAYS 08/03/25 22:10 Urine,Clean Catch Urine Culture - Final NO GROWTH AFTER 48 HOURS Constitutional: Present no acute distress, thin and chronically ill appearing Head: Present atraumatic Respiratory: Present normal respiratory effort; Absent respiratory distress, rhonchi or wheezes Cardiac: Present Reg Rate and Rhythm GI: Present soft and normal bowel sounds; Absent tenderness Extremities: Present normal inspection and full ROM Skin: Present intact; Absent erythema Neuro: Present Grossly Intact, alert, awake and moves all extremities Assessment and Plan *Assessment and plan (1) Closed intertrochanteric fracture of left hip: Status: Acute Qualifiers: Encounter type: subsequent encounter Fracture alignment: displaced Fracture healing: with routine healing Qualified Code(s): S72.142D - Displaced intertrochanteric fracture of left femur, subsequent encounter for closed fracture with routine healing Category: Medical Code(s): S72.142A - Displaced intertrochanteric fracture of left femur, initial encounter for closed fracture (2) Aortic insufficiency: Status: Acute Category: Medical Code(s): I35.1 - Nonrheumatic aortic (valve) insufficiency (3) Hypertension: Status: Acute Qualifiers: Hypertension type: primary hypertension Qualified Code(s): I10 - Essential (primary) hypertension Category: Medical Code(s): I10 - Essential (primary) hypertension (4) Anxiety: Status: Acute Category: Medical Code(s): F41.9 - Anxiety disorder, unspecified (5) Recurrent falls: Status: Acute Category: Medical Code(s): R29.6 - Repeated falls (6) History of stroke: Status: Acute Category: Medical Code(s): Z86.73 - Personal history of transient ischemic attack (TIA), and cerebral infarction without residual deficits Plan Caity Villanueva is a 85-year-old female who fell getting out of her car. Sustained left proximal femur fracture on 07/31/2025. Discussed case with ER physician, request admission for surgical fixation. Agreed to admit for further care. Orthopedics consulted. Responded well to surgery. Continues to have delirium. Awaiting improvement in mentation to be appropriate for discharge. Problems addressed as follows: Mechanical fall from standing height Proximal left femur fracture - Per review of imaging, had a closed intertrochanteric fracture left hip. ? Orthopedic surgery consulted, s/p cephalomedullary nailing left proximal femur on 08/01/2025. - Discontinue IV morphine. Continue [place] 5 mg as needed for severe pain every 6 hours. ? PT and OT recommend skilled therapy. Awaiting improvement in mentation for discharge to rehab. ? Aspirin 81 mg twice daily for DVT prophylaxis. #Acute toxic encephalopathy versus delirium in the setting of underlying dementia - Patient seems more subdued over the past few days, is concerned that she is not responding as well as she normally does or conversational. ? Upon medication review on 08/03/2025, home buspirone dose was restarted at 20 mg instead of 10 mg 3 times daily. Buspirone has been discontinued for over 48 hours. -Not on any opiates. No Haldol dose in over 36 hours. - Awake on morning rounds but not taking meds. Did have improvement in mentation as the day progressed yesterday. - Continue antibiotics empirically with ceftriaxone 1 g daily, today is day 4 of 5 - Status post transfusion 2 units packed red blood cells after surgery. Hemoglobin stable today at 10.3 - Urine and blood cultures negative at at least 48 hours - Hemoglobin 10.3. White count normal at 6.8. Kidney function and electrolytes acceptable with potassium 3.2, BUN 17, creatinine 0.6, calcium 8.1. Replace per protocol #Acute on chronic anemia ? Hemoglobin improved after transfusion yesterday. Stable at 10.3. - Continuous cardiac telemetry. ? Repeat CBC, CMP ordered for the morning. #BRITTON on CKD ? Creatinine bump to 1.3 consistent with BRITTON, back to her baseline. Stable this morning at 0.6. BUN 17. Potassium 3.2. #Fever of unknown origin, resolved ? Fever up to 101.3 08/01/2025 morning, initial WBCs 16.3, has since normalized. Afebrile since. ? Broad workup including initial CXR, UA, full respiratory panel, blood cultures unremarkable for acute findings. No other focal infectious symptoms. #History of CVA #History of aphasia, stridor ? Continue aspirin 81 mg twice daily as above. #Severe protein calorie malnutrition: Nutrition consulted, providing counseling and recommendations. Albumin 3.0 this morning Severe aortic insufficiency Hypertension - Echo from March 2024 with the following: Low-normal LV systolic function (LVEF 50%). Normal LV dimensions (LVEDd=5.8 cm. LVESd=4.3 cm). Asynchronous septum. Mild RV dilation. Moderate to severe AI. Mild MR, mild TR, mild PI. - Repeat ECHO on 08/01/2025 revealed severe aortic insufficiency, trivial posterior pericardial effusion without signs of tamponade. Cardiology following, will continue further evaluation on outpatient basis. ?Hold home amlodipine as BP normal at this time. Anxiety: Continue Auvelity 1 tab twice daily. Holding BuSpar daily Full code Regular diet
[2025-08-06 10:34] LABS: RBC Morphology Normal; Total Cells Counted 100
--- NOTE | 2025-08-06 11:11 | HMH.PHAAMS2 ---
- Antimicrobial Stewardship Review culture & sensitivity review Stewardship interventions: culture & sensitivity review (CURRENTLY RECEIVING ROCEPHIN FOR UTI, WBC DOWN FROM 16.3K TO 6.8K, AFEBRILE, CX NEGATIVE.)
--- NOTE | 2025-08-06 11:15 | HMH.PHAAMS2 ---
- Antimicrobial Stewardship Review 48 hour timeout review Stewardship interventions: 48 hour timeout review (CURRENTLY RECEIVING ROCEPHIN FOR UTI, WBC DOWN FROM 16.3K TO 6.8K, AFEBRILE, CX NEGATIVE.)
[2025-08-06] MEDS: 0.9 % SODIUM CHLORIDE 1000ML 1,000 ML 75 ML IV (16:43)
--- NOTE | 2025-08-06 17:26 | PC.NURSE ---
PT IS SITTING UP IN THE CHAIR. ALERT TO SELF ONLY. PT HAS HAD OFF AND ON DELIRIUM T/O SHIFT. PT WILL HAVE PERIODS OF ANSWERING SIMPLE YES OR NO QUESTIONS AND FOLLOWING SIMPLE COMMANDS AND THEN WILL HAVE PERIODS OF BEING CONFUSED AND UNCOOPERATIVE. PT REFUSED TO SWALLOW PO MEDS THIS SHIFT AFTER SEVERAL ATTEMPTS. 1 ATTEMPT WAS THIS AFTERNOON RIGHT AFTER FAMILY STATED SHE HAD JUST TAKEN SEVERAL BITES OF PIE AND WAS ABLE TO DRINK ALMOST A FULL GLASS OF TEA. PT COOPERATED WITH PHYSICAL THERAPY THIS SHIFT. 2 MODERATE ASSIST TO GET OOB TO CHAIR. DRESSING TO LEFT HIP CHANGED THIS SHIFT. O2 SATURATION HAS MAINTAINED 90-94% ON RA T/O THE SHIFT. TURNED AND REPOSITIONED IN BED. WILL CONTINUE TO MONITOR.
[2025-08-06] MEDS: ACETAMINOPHEN 1,000MG/100ML VIAL 1000 MG IV (17:45)
[2025-08-06] MEDS: ASPIRIN 81MG CHEWABLE TABLET 81 MG PO (20:18)
[2025-08-06] MEDS: MELATONIN 5MG TABLET 2.5 MG PO (20:18)
[2025-08-07] VITALS: PULSE 90
[2025-08-07 04:00] VITALS: BP 145/66; PULSE 85; PULSE 93; RESP 16; TEMP 37.1; O2SAT 96; BMI 19.6
--- NOTE | 2025-08-07 04:05 | PC.NURSE ---
Patient remains alert to self with a flat affect. She has been much more interactive and vocal during wakeful periods this shift compared to the previous night. Additionally noted to have laughed at one point while watching [employer] [place] [employer] on TV. However, the patient does have difficulty finding words; ample time was allowed for her to make attempts to respond. She continues to nod/shake her head to answer questions. Points and gestures. Has participated in casual conversations with nursing staff. Patient did express some confusion to place (asked about where she is at and when will her family will return). She was observed to be resting in bed with eyes closed, respirations even and unlabored (less shallow) on room air, and no apparent distress throughout the majority of the night. Oxygen saturations remain >90%. Patient has not reported having any pain (shook head no upon assessments, stated not right now ) thus far. Repositioned/turned every 2 hours. Gets up with assistance. Lower extremities remain elevated with pillows. Left hip dressing remains clean, dry, and intact. Patient was able to take food items and oral medications by mouth this shift. Aspiration precautions were taken (patient was sat upright in bed at 90 degrees, chin-tuck method utilized). She was directed thoroughly and was able to swallow with persistent coaching. However, the patient was noted to be hesitant at times by holding the liquid in her mouth. Eventually, the patient swallowed efficiently. Ate leftover pie. She did end up spitting out some of her chocolate Ensure during ad mak snacking; a bed bath was provided this shift after the soiling of her gown. She continues to rely on others for the majority of her care, patience very crucial. Incentive spirometer was able to be used by the patient this shift. With direction, the patient was able to follow commands in order to use the device successfully. Comprehension noted to have improved for this shift. Physical assessment (see nursing shift biophysical intervention) was performed as appropriately per OCT. On telemetry. A female purewick was replaced for nighttime use due to incontinence. At this time, the patient remains resting in bed with no new needs indicated. Bed alarm on. Call light within reach.
--- NOTE | 2025-08-07 05:00 | PC.NURSE ---
Patient was transferred from bed to chair by her request with x2 assistance at this time.
[2025-08-07 06:30] LABS: Hematocrit 34.6 % (37.0-47.0); Hemoglobin 11.1 g/dL (12.2-16.2); Immature Granulocytes % 0.5 %; Mean Corpuscular HGB Conc 32.1 g/dL (31.8-35.4); Mean Corpuscular Hemoglobin 31.9 pg (27.0-31.2); Mean Corpuscular Volume 99.4 fl (81-99); Nucleated Red Blood Cells % 0 %; Platelet Count 270 K/mm3 (142-424); Red Blood Count 3.48 M/mm3 (4.20-5.40); Red Cell Distribution Width-SD 51.2 fL; White Blood Count 7.4 K/mm3 (4.8-10.8)
[2025-08-07 06:41] LABS: Albumin Level 3.3 g/dl (3.5-5.0); Chloride 108 mmol/L (98-107); Potassium 3.9 mmoL/L (3.5-5.1); Sodium 137 mmol/L (136-145)
[2025-08-07 06:44] LABS: Alanine Aminotransferase 47 U/L (12-78); Albumin/Globulin Ratio 1.1 (1.1-1.8); Alkaline Phosphatase 91 U/L (38-126); Anion Gap 7.9 mEq/L (5-15); Aspartate Amino Transferase 65 U/L (14-36); Bilirubin,Total 1.1 mg/dl (0.2-1.3); Blood Urea Nitrogen 19 mg/dl (7-17); Calcium 8.5 mg/dl (8.4-10.2); Carbon Dioxide 25 mmol/L (22.0-30.0); Creatinine Clearance Estimated 33 mL/min (50-200); Creatinine,Serum 0.60 mg/dl (0.52-1.04); Estimated Glomerular Filt Rate 95 ml/min (>60); GFR (African American) 115 ML/MIN (>60); Globulin 2.9 g/dL (1.3-3.2); Glucose 97 mg/dl (74-100); Magnesium 2.0 mg/dl (1.6-2.3); Total Protein,Serum 6.2 g/dl (6.3-8.2)
--- NOTE | 2025-08-07 07:06 | EXP.DC.SUM ---
General Admission date:: 07/31/25 Discharge date: 08/07/25 HPI HPI HPI: Ms. 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 She presented to the ER after a fall at home. Sustained left hip pain. Count elevated at 16. Imaging obtained showing proximal left femur fracture. Discussed case with ER, request admission for further management. Stable on room air. Pain better after nerve block. assists with history. Hospital Course Hospital Course Hospital Course: Caity Villar is a 85-year-old female who fell getting out of her car. Sustained left proximal femur fracture on 07/31/2025. Discussed case with ER physician, request admission for surgical fixation. Agreed to admit for further care. Orthopedics consulted. Responded well to surgery. Tolerated procedure well without complication. Had some delirium after procedure. Has had gradual improvement in her mentation. Currently working with therapy, cooperative with nursing. Not quite back to baseline but showing significant improvement. Stable to discharge to rehab for further management. Problems addressed as follows: Mechanical fall from standing height Proximal left femur fracture - Per review of imaging, had a closed intertrochanteric fracture left hip. Orthopedic surgery consulted, s/p cephalomedullary nailing left proximal femur on 08/01/2025. Initially treated with IV morphine and [place] for pain control. Has not needed opiate pain control for over 48 hours prior to discharge. Therapy working with patient daily, showing improvement. Recommended skilled therapy at discharge. Graciously accepted by [facility] for further care. Continue aspirin 81 mg twice daily for DVT prophylaxis per orthopedics recommendations. Tylenol 650 as needed every 4-6 hours for moderate to severe pain. #Acute toxic encephalopathy versus delirium in the setting of underlying dementia -After surgery, patient was more subdued with concern for some delirium. Does have dementia at baseline. On medication review it appears that her BuSpar was restarted at twice her normal dose. It was discontinued on the and she has been monitored since. Has had slow gradual improvement in her mentation. Mentation has waxed and waned consistent with delirium in the setting of her underlying dementia. Did require a dose of Haldol due to agitation on the evening of 08/04. Haldol has since been held and she has had no opiates in over 48 hours. During small portions of her trays. Meeting criteria to discharge to rehab. Patient is cooperative with no behavioral disturbance. #Acute on chronic anemia ? Hemoglobin 12.9 on admission. Dropped to 7.4 after surgery. Was transfused with good response. Has remained above 10 since. 11.1 on morning of discharge. No active signs of bleeding. Would benefit from repeat CBC, CMP in 1 week to monitor kidney function, electrolytes, hemoglobin. #BRITTON on CKD ? Creatinine bump to 1.3 consistent with BRITTON, back to her baseline. Has been stable at creatinine 0.6 for several days prior to discharge. #Fever of unknown origin, resolved ? Fever up to 101.3 08/01/2025 morning, initial WBCs 16.3, has since normalized. Afebrile since. Broad workup including initial CXR, UA, full respiratory panel, blood cultures unremarkable for acute findings. No other focal infectious symptoms. Did empiric course of antibiotics over 5 days between combination of cefepime and ceftriaxone. Last dose given on morning of discharge #History of CVA #History of aphasia, stridor ? Continue aspirin 81 mg twice daily as above. #Severe protein calorie malnutrition: Nutrition consulted, providing counseling and recommendations. Albumin low normal. Recommend protein supplementation at nursing facility as well as nutrition evaluation. Severe aortic insufficiency Hypertension - Echo from March 2024 with the following: Low-normal LV systolic function (LVEF 50%). Normal LV dimensions (LVEDd=5.8 cm. LVESd=4.3 cm). Asynchronous septum. Mild RV dilation. Moderate to severe AI. Mild MR, mild TR, mild PI. - Repeat ECHO on 08/01/2025 revealed severe aortic insufficiency, trivial posterior pericardial effusion without signs of tamponade. Cardiology followed during admission. No other recommendations at this time. Recommend outpatient follow-up. Blood pressure normal during admission. Recommend resuming at discharge as it is increasing with systolics in the 140s Anxiety: Continue Auvelity 1 tab twice daily. Holding BuSpar daily. No significant anxiety over the past several days prior to discharge. Recommend reevaluating at nursing facility. Total time spent on discharge 32 minutes in counseling, documentation, chart review, and direct care with patient. Exam Data for Last 24 hours Vital signs and Labs for Last 24 Hours: Temp Pulse Resp BP Pulse Ox O2 Del Method O2 Flow Rate 98.1 F 81 16 142/49 H 96 Nasal Cannula 2 08/06/25 04:00 08/06/25 04:00 08/06/25 04:00 08/06/25 04:00 08/06/25 04:00 08/06/25 06:50 08/06/25 06:50 Laboratory Results - last 24 hr 08/05/25 06:31: WBC 7.0, RBC 3.27 L D, Hgb 10.7 L, Hct 31.4 L, MCV 96.0, MCH 32.7 H, MCHC 34.1, RDW 14.6, Plt Count 192, MPV 9.2, Neut % (Auto) 78.1, Lymph % (Auto) 9.3 L, [place] % (Auto) 9.8 H, Eos % (Auto) 1.9, Baso % (Auto) 0.6, Neut # (Auto) 5.4, Lymph # (Auto) 0.7, [place] # (Auto) 0.7, Eos # (Auto) 0.1, Baso # (Auto) 0.0, Sodium 137, Potassium 3.5, Chloride 106, Carbon Dioxide 30, Anion Gap 4.5 L, BUN 16, Creatinine 0.60, Estimated Creat Clear 34, Estimated GFR 95, Est GFR ( Amer) 115, Glucose 105 H, Calcium 8.0 L, Total Bilirubin 1.5 H, AST 64 H, ALT 41 D, Alkaline Phosphatase 71, Total Protein 5.6 L, Albumin 3.0 L D, Globulin 2.6, Albumin/Globulin Ratio 1.2 I & O for Last 24 hours: Intake & Output 08/03/25 08/04/25 08/05/25 08/06/25 23:59 23:59 23:59 23:59 Intake Total 1150 / 1270 1695 / 1695 1447.5 / 1452.5 Output Total 2049 / 2049 850 / 850 1600 / 1600 425 / 425 Balance -900 / -780 845 / 845 -152.5 / -147.5 -420 / -420 Weight 50.031 kg 50.303 kg 53.841 kg 51.12 kg Microbiology Reports for the Last 24 Hours: Microbiology 08/01/25 03:07 Blood - Other Blood Culture - Final NO GROWTH AFTER 5 DAYS 08/01/25 03:07 Blood - Other Blood Culture - Final NO GROWTH AFTER 5 DAYS 08/03/25 22:10 Urine,Clean Catch Urine Culture - Final NO GROWTH AFTER 48 HOURS Constitutional Constitutional: no acute distress and thin Comments: Pleasantly confused *Routine HEENT Exam Head: Present normocephalic Eye: Present EOMI and PERRL ENT: Present mucous membranes moist *Routine Neck Exam Neck: Present supple; Absent lymphadenopathy *Routine Respiratory Exam Respiratory: Present CTA bilaterally; Absent rhonchi, wheezes or crackles *Routine Cardiovascular Exam Cardiovascular: Present RRR *Routine Abdominal Exam Abdominal: Present soft and normoactive bowel sounds; Absent tenderness *Routine Rectal Exam Patient deferred: visual exam *Routine Exam Patient deferred: external exam *Routine Extremities Exam Extremities: Present edema (Minimal left lower extremity edema.); Absent cyanosis or clubbing Comments: Left hip dressed. Clean dry and intact. Legs equal length. *Routine Skin Exam Skin: Present warm and wounds (Skin tear right lower alfaro has been present since admission, obtained during her fall prior to admission); Absent rash *Routine Neurological Exam Neurological: Present alert, altered mental status and moving all extremities Comments: She will open eyes and make eye contact, nod to questions. Cooperative. Oriented to self only Results Data Completed and Pending Labs on day of discharge: Labs from last 24 hours 08/05/25 06:31 WBC 7.0 RBC 3.27 L D Hgb 10.7 L Hct 31.4 L MCV 96.0 MCH 32.7 H MCHC 34.1 RDW 14.6 Plt Count 192 MPV 9.2 Neut % (Auto) 78.1 Lymph % (Auto) 9.3 L [place] % (Auto) 9.8 H Eos % (Auto) 1.9 Baso % (Auto) 0.6 Neut # (Auto) 5.4 Lymph # (Auto) 0.7 [place] # (Auto) 0.7 Eos # (Auto) 0.1 Baso # (Auto) 0.0 Sodium 137 Potassium 3.5 Chloride 106 Carbon Dioxide 30 Anion Gap 4.5 L BUN 16 Creatinine 0.60 Estimated Creat Clear 34 Estimated GFR 95 Est GFR ( Amer) 115 Glucose 105 H Calcium 8.0 L Total Bilirubin 1.5 H AST 64 H ALT 41 D Alkaline Phosphatase 71 Total Protein 5.6 L Albumin 3.0 L D Globulin 2.6 Albumin/Globulin Ratio 1.2 DS: Diagnosis Discharge Diagnosis (1) Closed intertrochanteric fracture of left hip: Status: Acute Code(s): S72.142A - Displaced intertrochanteric fracture of left femur, initial encounter for closed fracture Qualifiers: Encounter type: subsequent encounter Fracture alignment: displaced Fracture healing: with routine healing Qualified Code(s): S72.142D - Displaced intertrochanteric fracture of left femur, subsequent encounter for closed fracture with routine healing (2) Aortic insufficiency: Status: Acute Code(s): I35.1 - Nonrheumatic aortic (valve) insufficiency (3) Hypertension: Status: Acute Code(s): I10 - Essential (primary) hypertension Qualifiers: Hypertension type: primary hypertension Qualified Code(s): I10 - Essential (primary) hypertension (4) Anxiety: Status: Acute Code(s): F41.9 - Anxiety disorder, unspecified (5) Recurrent falls: Status: Acute Code(s): R29.6 - Repeated falls (6) History of stroke: Status: Acute Code(s): Z86.73 - Personal history of transient ischemic attack (TIA), and cerebral infarction without residual deficits Meds Home Medications and Allergies Home Medications ?Medication ?Instructions ?Recorded ?Confirmed ?Type alendronate 70 mg tablet 70 mg PO WEEKLY 03/23/24 07/31/25 History amlodipine 5 mg tablet 5 mg PO DAILY 03/23/24 07/31/25 History dextromethorphan IR 45 1 tab PO BID 03/23/24 07/31/25 History mg-bupropion ER 105 mg biphasic tablet (Auvelity) buspirone 10 mg tablet 10 mg PO TID 07/31/25 08/01/25 History Held on 08/07/25. Instructions: Pending improvement in mentation. Patient not exhibiting anxiety at this time calcium 600 mg capsule 600 mg PO DAILY 07/31/25 07/31/25 History ffmwxqsxpkwy-thkmpmc-zugge acid 1 tab PO DAILY 07/31/25 07/31/25 History 400 mcg-vitamin K 80 mcg tablet (Multi For Her 50 Plus) vit C 250 mg-vit E 90 mg-zinc 40 1 tab PO BID 07/31/25 07/31/25 History mg-copper 1 an-bjeism-vbvhhc capsule (PreserVision AREDS-2) acetaminophen 325 mg tablet 650 mg (2 x 325 mg) PO Q4-6H PRN 08/07/25 Rx pain #120 tabs aspirin 81 mg chewable tablet 81 mg PO BID 30 days #60 tabs 08/07/25 Rx melatonin 5 mg tablet 2.5 mg (1/2 x 5 mg) PO HS 30 days 08/07/25 Rx #15 tabs polyethylene glycol 3350 17 gram 17 g PO DAILY #30 ea 08/07/25 Rx oral powder packet (HealthyLax) New Prescriptions to Start Prescriptions: acetaminophen Jimmy Mitchell aspirin Jimmy Mitchell melatonin Jimmy Mitchell polyethylene glycol 3350 [HealthyLax] Jimmy Mitchell Allergies Allergy/AdvReac Type Severity Reaction Status Date / Time Penicillins Allergy Hives Verified 08/01/25 12:25 Discharge Plan Disposition Patient Disposition: Xfer SNF Condition: Fair Discharge Order Discharge Orders: Discharge Order (Routine); Ordered 08/07/25 Ordered By: Jimmy Mitchell Follow up Plan Follow up with: Ellen Oneill APRN [Nurse Practitioner, Cardiology] - Enter time for follow up Bryant Burks DO [Staff Physician, Orthopedics] - Enter time for follow up Prescriptions/Medication Reconciliation: New polyethylene glycol 3350 [HealthyLax] 17 gram Powder In Packet 17 g PO DAILY Qty: 30 0RF aspirin 81 mg Tablet,Chewable 81 mg PO BID 30 Days Qty: 60 0RF melatonin 5 mg Tablet 2.5 mg PO HS 30 Days Qty: 15 0RF acetaminophen 325 mg tablet 650 mg PO Q4-6H PRN (Reason: pain) Qty: 120 0RF Continued calcium 600 mg Capsule 600 mg PO DAILY Multi For Her 50 Plus 400-80 mcg Tablet 1 tab PO DAILY PreserVision AREDS-2 250-90-40-1 mg Capsule 1 tab PO BID amlodipine 5 mg tablet 5 mg PO DAILY Auvelity 45-105 mg tablet, IR and ER, biphasic 1 tab PO BID Patient Comments: TAKE 1 TABLET BY MOUTH TWICE DAILY alendronate 70 mg tablet 70 mg PO WEEKLY Held buspirone 10 mg tablet 10 mg PO TID Hold Instructions: Pending improvement in mentation. Patient not exhibiting anxiety at this time Discontinued aspirin 81 mg tablet,chewable 81 mg PO DAILY Problem Reconciliation Problems Reviewed?: Yes Patient Discharge Instructions ACTIVITY: Continue current activity DIET: continue same diet Patient Instructions: High-Calorie, High-Protein Diet, DI for Hip Fracture, DI for Hip Replacement, DI for Surgical Site Infection, Catheter-Associated Urinary Tract Infection, NCM High-Calorie High-Protein Diet, WM High Calorie High Protein Diet Recipes, Stop Light Infection Print Language: Panamanian Providers Primary Care Provider: Marin Ambrose Provider: Jimmy Mitchell Attending Provider: Jimmy Mitchell
[2025-08-07] MEDS: CEFTRIAXONE 1 GM 1 GM in 0.9 % SODIUM CHLORIDE 50 ML IV (07:48)
[2025-08-07] MEDS: OYSTER SHELL CALCIUM (ELEMENTAL) 500MG TAB 500 MG PO (07:51)
[2025-08-07] MEDS: POLYETHYLENE GLYCOL 3350 17 GM PACKET PO (07:51)
[2025-08-07] MEDS: ASPIRIN 81MG CHEWABLE TABLET 81 MG PO (07:51)
[2025-08-07 08:00] VITALS: BP 129/63; PULSE 113; PULSE 120; RESP 17; TEMP 36.8; O2SAT 95
--- NOTE | 2025-08-07 08:29 | HMH.PHAAMS2 ---
- Antimicrobial Stewardship Review culture & sensitivity review Stewardship interventions: culture & sensitivity review, reviewed - no change Comments: ON ROCEPHIN FOR UTI, DAY 5/5 PER MD NOTE, WBC REMAINS WNL AT 7.4 K/mm3, AFEBRILE, URINE CX NO GROWTH AT 48 HR.
[2025-08-07] MEDS: KETOROLAC 15MG/ML VIAL 15 MG IV (09:44)
== END 2025-08-07 09:47 | DRG 480 ==
LOC: ER 13:58 → ICU 14:31 → 2ND 08-01 12:04
PROVIDERS: Nurse Practitioner; Nurse Practitioner Acute Care; Orthopaedic Surgery; Student in an Organized Health Care Education/Training Program; Admitting Provider Internal Medicine Adolescent Medicine; Emergency Provider Student in an Organized Health Care Education/Training Program; PCP Emergency Medicine; Visit Provider Internal Medicine Adolescent Medicine
PROC: 0QS734Z Reposition Left Upper Femur with Internal Fixation Device, Percutaneous Approach (ICD-10-PCS; CPT 27245; principal; 2025-08-01 12:30)
DX: S72.142A Displaced intertrochanteric fracture of left femur, initial encounter for closed fracture (principal); E43 Unspecified severe protein-calorie malnutrition; G92.8 Other toxic encephalopathy; N17.9 Acute kidney failure, unspecified; F05 Delirium due to known physiological condition; Z68.1 Body mass index [BMI] 19.9 or less, adult; F03.94 Unspecified dementia, unspecified severity, with anxiety; Y92.019 Unspecified place in single-family (private) house as the place of occurrence of the external cause; D63.1 Anemia in chronic kidney disease; N18.9 Chronic kidney disease, unspecified; R50.9 Fever, unspecified; Z86.73 Personal history of transient ischemic attack (TIA), and cerebral infarction without residual deficits; I12.9 Hypertensive chronic kidney disease with stage 1 through stage 4 chronic kidney disease, or unspecified chronic kidney disease; I08.3 Combined rheumatic disorders of mitral, aortic and tricuspid valves; V48.4XXA Person boarding or alighting a car injured in noncollision transport accident, initial encounter; R29.6 Repeated falls; Z79.82 Long term (current) use of aspirin; Z88.0 Allergy status to penicillin
CPT/HCPCS: 0223U; 36415; 36430; 51702; 51798; 64450; 70450; 71045; 73502; 76000; 80053; 81001; 82607; 82728; 82746; 83540; 83550; 83605; 83690; 83735; 84145; 84443; 84484; 85007; 85014; 85018; 85025; 86140; 86803; 86850; 87040; 87086; 87389; 93005; 93306; 97162; 97165; 97530; 99285; C1713; J0131; J0665; J0692; J0696; J0736; J1100; J1630; J1650; J1885; J2003; J2270; J2371; J2405; J2704; J3010; J3480; J7030; J7120; P9016

== ENCOUNTER 2025-08-07 21:03 | Inpatient (IN) | payer MEDICARE, SELFPAY ==
--- NOTE | 2025-08-07 21:10 | CT_ITS ---
PROCEDURE INFORMATION: Exam: CT Head Without Contrast Exam date and time: 08/07/2025 10:26 PM Age: 85 years old Clinical indication: Injury or trauma; Fall TECHNIQUE: Imaging protocol: Computed tomography of the head without contrast. Radiation optimization: All CT scans at this facility use at least one of these dose optimization techniques: automated exposure control; mA and/or kV adjustment per patient size (includes targeted exams where dose is matched to clinical indication); or iterative reconstruction. COMPARISON: CT HEAD/BRAIN WO CON 08/01/2025 2:20 AM FINDINGS: Brain: Left parietal and right cerebellar lobe encephalomalacia/gliosis may be secondary to remote infarcts. There is patchy hypoattenuation in the deep and subcortical white matter, likely representing chronic small vessel ischemic change. Focal hypodensities along the bilateral basal ganglia may represent remote lacunar infarcts. No mass effect. No hemorrhage. Cerebral ventricles: No ventriculomegaly. Paranasal sinuses: Visualized sinuses are unremarkable. No fluid levels. Mastoid air cells: Visualized mastoid air cells are well aerated. Bones: Unremarkable. No acute fracture. Soft tissues: Unremarkable. Other findings: Right-sided hearing aid. IMPRESSION: No acute intracranial abnormality.
--- NOTE | 2025-08-07 21:10 | CT_ITS ---
PROCEDURE INFORMATION: Exam: CTA Abdomen and Pelvis With Contrast Exam date and time: 08/07/2025 10:40 PM Age: 85 years old Clinical indication: Injury or trauma; Fall; Additional info: Fall with pain in left hip TECHNIQUE: Imaging protocol: Computed tomographic angiography of the abdomen and pelvis with contrast. Exam focused on the arteries. 3D rendering (Not supervised by radiologist): MIP and/or 3D reconstructed images were created by the technologist. Radiation optimization: All CT scans at this facility use at least one of these dose optimization techniques: automated exposure control; mA and/or kV adjustment per patient size (includes targeted exams where dose is matched to clinical indication); or iterative reconstruction. Contrast material: ISOVUE; Contrast volume: 80 ml; Contrast route: INTRAVENOUS (IV); COMPARISON: CR XR HIP LT 2-3V W/PELVIS 08/07/2025 9:53 PM FINDINGS: Aorta: No aortic aneurysm. No aortic dissection. Celiac and mesenteric arteries: No occlusion . 50% stenosis proximal celiac trunk. No significant stenosis SMA. Renal arteries: No occlusion or significant stenosis. Right iliac arteries: No occlusion or significant stenosis. Left iliac arteries: No occlusion or significant stenosis. Liver: Hepatomegaly and fatty liver Gallbladder and biliary ducts: Distended gallbladder and scattered stones Pancreas: Unremarkable. No mass. No ductal dilation. Spleen: Unremarkable. No splenomegaly. Adrenal glands: Unremarkable. No mass. Kidneys and ureters: Unremarkable. No solid mass. No hydronephrosis. Stomach and bowel: Wall thickening and surrounding inflammatory changes of the rectum which could indicate proctitis. No small bowel obstruction Appendix: No evidence of appendicitis. Intraperitoneal space: Unremarkable. No free air. No significant fluid collection. Lymph nodes: Unremarkable. No enlarged lymph nodes. Urinary bladder: Unremarkable. No mass. Reproductive: Unremarkable as visualized. Bones/joints: Postsurgical changes in the left the femur. Comminuted fracture of the proximal left femur intertrochanteric region. Chronic fractures of T12 and L1 and T10. Soft tissues: Soft tissue anasarca severe soft tissue swelling involving the left hip and thigh. IMPRESSION: 1. No solid organ injury 2. Postsurgical changes in the left femur with underlying comminuted intertrochanteric femur fracture. 3. Gallstones and distended gallbladder
--- NOTE | 2025-08-07 21:11 | CT_ITS ---
PROCEDURE INFORMATION: Exam: CTA Chest With Contrast Exam date and time: 08/07/2025 10:40 PM Age: 85 years old Clinical indication: Injury or trauma; Fall; Additional info: Trauma, critical injury suspected TECHNIQUE: Imaging protocol: Computed tomographic angiography of the chest with contrast. Exam focused on the arteries. 3D rendering (Not supervised by radiologist): MIP and/or 3D reconstructed images were created by the technologist. Radiation optimization: All CT scans at this facility use at least one of these dose optimization techniques: automated exposure control; mA and/or kV adjustment per patient size (includes targeted exams where dose is matched to clinical indication); or iterative reconstruction. Contrast material: ISOVUE; Contrast volume: 80 ml; Contrast route: INTRAVENOUS (IV); COMPARISON: CT CHEST PE PROTOCOL 03/23/2024 10:22 AM FINDINGS: Pulmonary arteries: Normal. No pulmonary emboli. Aorta: Unremarkable. No aortic aneurysm. No aortic dissection. Lungs: Biapical scarring. Emphysema. No consolidation. 6 mm pulmonary nodule right lower lobe. Bibasilar atelectasis Pleural spaces: Unremarkable. No pneumothorax. No pleural effusion. Heart: Unremarkable. No cardiomegaly. No pericardial effusion. Lymph nodes: Unremarkable. No enlarged lymph nodes. Bones/joints: Chronic fractures of L2, T12, T10, T8. Chronic sternal fractures. Degenerative changes in the right shoulder Soft tissues: Unremarkable. IMPRESSION: No acute posttraumatic finding in the chest For patients at low risk (minimal or absent history of smoking and of other known risk factors), no routine follow-up is indicated. For patients at high risk (history of smoking or of other known risk factors), consider optional CT at 12 months. (darleen Harding., Fleischner Society, 2017)
--- NOTE | 2025-08-07 21:11 | CT_ITS ---
PROCEDURE INFORMATION: Exam: CT Cervical Spine Without Contrast Exam date and time: 08/07/2025 10:29 PM Age: 85 years old Clinical indication: Injury or trauma; Fall; Additional info: Trauma, critical injury suspected TECHNIQUE: Imaging protocol: Computed tomography of the cervical spine without contrast. Radiation optimization: All CT scans at this facility use at least one of these dose optimization techniques: automated exposure control; mA and/or kV adjustment per patient size (includes targeted exams where dose is matched to clinical indication); or iterative reconstruction. COMPARISON: CT CERVICAL SPINE WO CON 08/07/2025 10:29 PM FINDINGS: Bones: No acute fracture. Straightening of the cervical lordosis. Grade 1 anterolisthesis of C7 on T1. Moderate spondylosis. No significant spinal canal stenosis. Moderate-severe osseous neural foraminal narrowing at C3-C4, C4-C5, C5-C6, and C6-C7 on the right. Lungs: Lung apices are normal. Soft tissues: Unremarkable. IMPRESSION: No acute fracture or malalignment.
--- NOTE | 2025-08-07 21:11 | CT_ITS ---
PROCEDURE INFORMATION: Exam: CT Thoracic Spine Without Contrast Exam date and time: 08/07/2025 10:31 PM Age: 85 years old Clinical indication: Injury or trauma; Fall; Additional info: Trauma, critical injury suspected TECHNIQUE: Imaging protocol: Computed tomography of the thoracic spine without contrast. Radiation optimization: All CT scans at this facility use at least one of these dose optimization techniques: automated exposure control; mA and/or kV adjustment per patient size (includes targeted exams where dose is matched to clinical indication); or iterative reconstruction. COMPARISON: CT THORACIC SPINE WO CON 08/07/2025 10:31 PM FINDINGS: Bones/joints: No acute fracture. Chronic fractures of T12, L2, T10, T8. Mild kyphosis peer No significant disc bulge or herniation. No severe spinal canal stenosis. No significant neural foraminal narrowing. Soft tissues: Unremarkable. IMPRESSION: No acute thoracic spine fracture.
--- NOTE | 2025-08-07 21:11 | CT_ITS ---
PROCEDURE INFORMATION: Exam: CTA Neck With Contrast Exam date and time: 08/07/2025 10:37 PM Age: 85 years old Clinical indication: Injury or trauma; Fall; Additional info: Trauma, critical injury suspected TECHNIQUE: Imaging protocol: Computed tomographic angiography of the neck with contrast. Exam focused on the cervical segments of the vasculature. 3D rendering (Not supervised by radiologist): MIP and/or 3D reconstructed images were created by the technologist. Radiation optimization: All CT scans at this facility use at least one of these dose optimization techniques: automated exposure control; mA and/or kV adjustment per patient size (includes targeted exams where dose is matched to clinical indication); or iterative reconstruction. Contrast material: ISOVUE; Contrast volume: 80 ml; Contrast route: INTRAVENOUS (IV); COMPARISON: CTA BRAIN NECK 12/17/2024 10:19 AM FINDINGS: Right common carotid artery: No stenosis. No dissection or occlusion. Right internal carotid artery: No stenosis of the extracranial segment. No dissection or occlusion. Right external carotid artery: No occlusion or stenosis of the origin. Left common carotid artery: No stenosis. No dissection or occlusion. Left internal carotid artery: No stenosis of the extracranial segment. No dissection or occlusion. Left external carotid artery: No occlusion or stenosis of the origin. Right vertebral artery: No stenosis. No dissection or occlusion. Left vertebral artery: No stenosis. No dissection or occlusion. Soft tissues: Normal. No significant soft tissue swelling. Bones/joints: No acute fracture. Moderate spondylosis. Straightening of the cervical lordosis. Grade 1 anterolisthesis of C7 on T1. IMPRESSION: No vascular injury, stenosis, or occlusion. REFERENCES: NASCET CRITERIA. The degree of stenosis in the cervical segment of the internal carotid artery is based on NASCET criteria. Normal is no stenosis. Mild is less than 50% stenosis. Moderate is 50-69% stenosis. Severe is 70% to 99% stenosis. Total occlusion is no detectable patent lumen.
--- NOTE | 2025-08-07 21:11 | CT_ITS ---
PROCEDURE INFORMATION: Exam: CT Lumbar Spine Without Contrast Exam date and time: 08/07/2025 10:34 PM Age: 85 years old Clinical indication: Injury or trauma; Fall; Additional info: Trauma, critical injury suspected TECHNIQUE: Imaging protocol: Computed tomography of the lumbar spine without contrast. Radiation optimization: All CT scans at this facility use at least one of these dose optimization techniques: automated exposure control; mA and/or kV adjustment per patient size (includes targeted exams where dose is matched to clinical indication); or iterative reconstruction. COMPARISON: CT THORACIC SPINE WO CON 08/07/2025 10:31 PM FINDINGS: Bones/joints: No acute fracture. Chronic fractures of the T12, L2 L4. Multilevel facet joint arthropathy. Normal alignment. No significant disc bulge or herniation. No severe spinal canal stenosis. No significant neural foraminal narrowing. Soft tissues: Unremarkable. IMPRESSION: No acute lumbar spine fracture.
[2025-08-07 21:12] VITALS: BP 153/60; PULSE 90; RESP 14; TEMP 36.9; O2SAT 100; BMI 20.5
--- NOTE | 2025-08-07 21:12 | XR_ITS ---
PROCEDURE INFORMATION: Exam: XR Left Hip Exam date and time: 08/07/2025 9:53 PM Age: 85 years old Clinical indication: Injury or trauma; Fall TECHNIQUE: Imaging protocol: Radiologic exam of the left hip. Views: 2 or 3 views hip with pelvis when performed. COMPARISON: SD XR HIP LT 2-3V W/PELVIS 08/01/2025 3:09 PM FINDINGS: Bones/joints: Intramedullary shyam and screw fixation proximal left femur. No hardware complication. No acute fracture. Soft tissues: Unremarkable. IMPRESSION: Postsurgical changes in the left femur.
--- NOTE | 2025-08-07 21:13 | XR_ITS ---
PROCEDURE INFORMATION: Exam: XR Left Femur Exam date and time: 08/07/2025 9:53 PM Age: 85 years old Clinical indication: Injury or trauma; Fall TECHNIQUE: Imaging protocol: Radiologic exam of the left femur. Views: 2 views. COMPARISON: SD XR HIP LT 2-3V W/PELVIS 08/01/2025 3:09 PM FINDINGS: Bones/joints: Tricompartmental joint space narrowing and osteophyte formation in the knee. Intramedullary shyam and screw fixation of intertrochanteric femur fracture. Normal anatomic alignment. No acute fracture. Soft tissues: Unremarkable. IMPRESSION: Postsurgical changes in the left hip.
--- NOTE | 2025-08-07 21:13 | XR_ITS ---
PROCEDURE INFORMATION: Exam: XR Chest Exam date and time: 08/07/2025 9:53 PM Age: 85 years old Clinical indication: Injury or trauma; Fall TECHNIQUE: Imaging protocol: Radiologic exam of the chest. Views: 1 view. COMPARISON: CR XR CHEST PORTABLE 08/04/2025 11:11 AM FINDINGS: Lungs: Emphysema. Do this morning and I did no the lower legs did this 1 No consolidation. Pleural spaces: Unremarkable. No pleural effusion. No pneumothorax. Heart/Mediastinum: Unremarkable. No cardiomegaly. Bones/joints: Unremarkable. IMPRESSION: No acute findings.
--- OUTSIDE RECORDS SUMMARY | 2025-08-07 21:16 | XMS_ITS | Clinical Summary ---
Author Organization [facility] Address [address] [id number] Care Team Providers Care Supervisor Contact And Service Clerks Name Role Phone Marin Ambrose MD Primary Care Provider [phone] Allergies Active Allergy Reactions Criticality Noted Date [...] Description 12/22/2025 2:30 PM EDT Office Visit [facility] [address], [address] [place] [address] Tamara King MD [address] [facility] [address] [place] [address] Health Maintenance Due Date Last Done Comments [facility]-Bone Density Scan 1939 [facility]-Depression Screening 1939 [facility]-Infant/Child/Adol SDOH Screenings 1939 [facility]- SDOH Screenings 1957 [facility]-Adult SDOH Screenings 1957 [facility]-Zoster Vaccines (2 of 3) 09/17/2007 07/23/2007 [facility]-RSV Vaccine: 60+ Years or (1 - 1-dose 75+ series) 2014 [facility]-DTaP,Tdap,and Td Vaccines (1 - Tdap) 05/07/2018 05/06/2018, 03/08/2002, 02/16/2002 [facility]-Medicare Annual Wellness (AWV) 12/16/2024 12/17/2023, 06/12/2022 [id number] Vaccine ( season) 2025 06/06/2024, 06/11/2022, 06/10/2021, [...] this topic Insurance [employer] MEDICARE Care Teams Supervisor Contact And Service Clerks Relationship Specialty Start Date End Date Marin Ambrose MD [address] [place], [place] [address] PCP - General 11/05/22
--- OUTSIDE RECORDS SUMMARY | 2025-08-07 21:16 | XMS_ITS | Data Portability ---
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 Patient currently on a good combination of bupropion/dextrome thorphan as well as BuSpar. BuSpar seems to making a tremendous difference in her tremulousness. She has minimal tardive dyskinetic symptoms in her lower extremities but willing to live with these. Previous trials of Ingrezza, Austedo, alprazolam, have all been associated with side effects and problems. She has had poor reactions to aripiprazole, clonazepam, and other antidepressants I recommended continuing this combination and follow-up with me as necessary. [email or web address] Not available 03/31/2023 12:17:46 Plan of Treatment Reminders Order Date Submit Date Provider Last Modified By Organization Details Last Modified Time Details Appointments None record ed. Lab None record ed. Referral None record ed. Procedures None record ed. Surgeries None record ed. Imaging None record ed. Medication Orders None record ed. Patient TargetsNo targets recorded. Patient InstructionsNo instructions recorded. Reason for Referral None Reported. Procedures Surgical History Date Name Laterality Status Provider Name and Address Organization Details Recorded Time Total Hysterectomy completed [facility] 03/31/2023 11:48:44 Appendectomy completed [facility] 03/31/2023 11:48:55 Imaging Results None recorded. Procedure Notes None recorded. Medical Equipment None Reported. Allergies Allergen ID Allergen Name Allergen Category Reaction Reaction Severity Criticality Documentation Date Start Date Code Code System Note Provider Name and Address Organization Details Recorded Time [id number] Product containin g penicilli n (product) medicatio n Not available Not available Not available 03/31/[id number] [facility] 3 11:44:41 Medications Name Sig Start Date Stop Date Status Note LastModified by Organization Details LastModified Time Stool Softener 100 mg capsule Take 1 capsule every day by oral route. active Not Available Not Available No t Available alendrona te 70 mg tablet Take 1 tablet every week by oral route. 03/31 completed Not Available Not Available Not Available clonazepa m 0.5 mg tablet Take 1 tablet by oral route. 03/31 completed Not Available Not Available Not Available venlafaxi ne ER 150 mg capsule,e xtended release 24 hr Take 1 capsule every day by oral route. 03/31 completed Not Available Not Available Not Available amlodipin e 5 mg tablet Take 1 tablet every day by oral route. active Not Available Not Available No t Available alprazola m 0.5 mg tablet Take 1 tablet every 8 hours by oral route as needed. 03/31 completed for anxiety or sleep Not Available Not Available Not Available carbidopa 10 mg-levodo pa 100 mg tablet Take 1 tablet twice a day by oral route. 03/31 completed for restless legs Not Available Not Available Not Available sertralin e 25 mg tablet Take 1 tablet every day by oral route. 03/31 completed Not Available Not Available Not Available carbidopa 25 mg-levodo pa 100 mg tablet Take 1 tablet twice a day by oral route. 03/31 completed Not Available Not Available Not Available sertralin e 50 mg tablet Take 1 tablet every day by oral route. 03/31 completed Not Available Not Available Not Available aripipraz ole 5 mg tablet Take 1 tablet every day by oral route. 03/31 completed Not Available Not Available Not Available bupropion HCl XL 300 mg 24 hr tablet, extended release Take 1 tablet every day by oral route. active Not Available Not Available No t Available Austedo 6 mg tablet active Not Available Not Available No t Available PreserVis ion AREDS 2 Plus Multivit 200 mcg-15 mcg-5 mg-1 mg capsule Take by oral route. active Not Available Not Available No t Available Vitals Date Recorded Body height Body mass index (BMI) Body weight Heart rate Oxygen saturation Systolic And Diastolic Provider Name and Address Organization Details Last Updated DateTime 3 154.94 cm 20.6 kg/m2 11053.5 7 g 68 /min 98 % 110/66 mm[Hg] Alisha Navas [facility] 3 11:44:20 Social History Question Answer Notes LastModified by Organizat ion Details LastModified Time Tobacco Smoking Status Never Smoker Alisha Navas [facility] 03/31/2023 11:48:22 What Is Your Relationship Status? [email or web address] Information not available 03/31/2023 Sex: Unknown Functional Status Question Answer Note LastModified by Organizat ion Details LastModified Time Do you use any illicit or recreational drugs? No [email or web address] Information not available 03/31/2023 What is your level of alcohol consumption? None [email or web address] Information not available 03/31/2023 Mental Status None recorded. Family History Relationship Description Onset Age of this Age Resolved Age Notes LastModified by Organization Details LastModified Time Father Diabetes mellitus [email or web address] Not available 2022 11:49:57 Medical History Condition Response Alzheimer's Y Anxiety Disorder Y Arthritis Y Cancer Y Stroke Y Gynecological HistoryNo gynecological history recorded. Obstetrics History GPAL:G 0 P 0 0 0 0 Past Encounters Encounter ID Performer Location Encounter Start Date Encounter Closed Date Diagnosis/Indication Diagnosis SNOMED-CT Code Diagnosis ICD10 Code Diagnosis IMO Codes Diagnosis Note [id number] SALVADOR BACK [facility] [address] [place] [address] 03/31/2023 10:49:16 04/01/2023 04:11:39 Tardive dyskinesia 078830488 G24.01 Mixed anxi ety and depressive disorder 003180778 F41.8 Health Concerns Section Related Observation LastModified by Organization Detai ls LastModified Time None Recorded Concern Status LastModified by Organization Details LastModified Time None Recorded Advance Directives Directive None Recorded Payers Insurance Date Sequence Insurance Name Policy Number Policy Riley Covered Member ID Riley Member ID Guarantor Name 03/31/2023 1 [employer] (MEDICARE REPLACEMENT/ ADVANTAGE - PPO) [id number] Caity Villar [id number] Caity Villar Notes Date Note Type Note Provider Name and Address Organization Details Recorded Time 03/31/2023 text/html ROS as noted in the HPI 82-year-old female presents today for follow-up, patient has a complicated and longstanding history of psychiatric issues, acute depression anxiety with psychotic features. Patient has been on a multitude of medications, she has had tardive dyskinesia that has been recalcitrant to treatment we have tried courses of Ingrezza, Austedo, Cogentin all to no avail history of tremors associated with anxiety that have been very difficult to control. Patient was eventually admitted to the geriatric psychiatry unit in [place] under the care of Dr. Aquino. She is currently on a combination of BuSpar 10 mg 3 times and a new antidepressant Auvelity, which is a combination of dextromethorphan and bupropion. Patient seems to be doing well, she still has some tardive dyskinesia in her lower extremities, but overall no tremulousness, and feels well. She is quite calm and able to give a good history without difficulty. This is much improved from previously. SALVADOR BACK MD [facility] [place], [address], [facility] 03/31/2023 12:18:11 OBGyn Episode No OBEpisode recorded.
--- NOTE | 2025-08-07 21:21 | HMH.EDGENADL ---
Discharge Plan Disposition Chief Complaint: Fall Prescriptions Prescriptions: No Action calcium 600 mg Capsule 600 mg PO DAILY Multi For Her 50 Plus 400-80 mcg Tablet 1 tab PO DAILY buspirone 10 mg tablet 10 mg PO TID PreserVision AREDS-2 250-90-40-1 mg Capsule 1 tab PO BID polyethylene glycol 3350 [HealthyLax] 17 gram Powder In Packet 17 g PO DAILY Qty: 30 0RF aspirin 81 mg Tablet,Chewable 81 mg PO BID 30 Days Qty: 60 0RF melatonin 5 mg Tablet 2.5 mg PO HS 30 Days Qty: 15 0RF acetaminophen 325 mg tablet 650 mg PO Q4-6H PRN (Reason: pain) Qty: 120 0RF amlodipine 5 mg tablet 5 mg PO DAILY Auvelity 45-105 mg tablet, IR and ER, biphasic 1 tab PO BID Patient Comments: TAKE 1 TABLET BY MOUTH TWICE DAILY alendronate 70 mg tablet 70 mg PO WEEKLY Referrals Follow up/Referrals: Marin Ambrose MD [Primary Care Provider, Medical] - See instructions Print Language Print Language: Nepali Discharge ED Provider: Erlinda Cary General Adult HPI General Chief complaint: Fall Stated complaint: Fall Time Seen by Provider: 08/07/25 21:10 Mode of Arrival: EMS Source of Information: EMS Description of Symptoms (Recalled from ER Triage Doc. by RN): Pt to ED via EMS from [facility] for evaluation following a fall. Per Nursing staff at facility, Pt had an unwitnessed fall. Pt last seen in bed around 1900 and was found on the floor @2024. Nursing staff reported pt had left hip replacement here at [facility] and was DC from here today. They stated that pt had been able to move left leg, and was not able to after the fall. Pt is confused at baseline. Unkown if she hit her head or had LOC. No blood thinners per Nursing staff and chart review. History of Present Illness HPI narrative: Patient is an 85-year-old female who presents from [facility] after a fall. Per EMS, patient had an unwitnessed fall. Patient was last seen in her bed around 1900 and was found on the floor an hour and a half later. Staff picked her up and put her back in the bed and then called EMS. They state that patient was having significant more pain in the left lower extremity was not moving it after the fall. She does have a history of stroke has significant aphasia at baseline. Patient is typically alert and oriented x 1. Patient is unable to state any other issues or pain. No blood thinners per chart review. Unclear etiology of the fall whether mechanical or syncopal in nature. Related Data Home Medications ?Medication ?Instructions ?Recorded ?Confirmed alendronate 70 mg tablet 70 mg PO WEEKLY 03/23/24 07/31/25 amlodipine 5 mg tablet 5 mg PO DAILY 03/23/24 07/31/25 dextromethorphan IR 45 1 tab PO BID 03/23/24 07/31/25 mg-bupropion ER 105 mg biphasic tablet (Auvelity) buspirone 10 mg tablet 10 mg PO TID 07/31/25 08/01/25 Held on 08/07/25. Instructions: Pending improvement in mentation. Patient not exhibiting anxiety at this time calcium 600 mg capsule 600 mg PO DAILY 07/31/25 07/31/25 kwdskikfskty-ezoprnf-hhegm acid 1 tab PO DAILY 07/31/25 07/31/25 400 mcg-vitamin K 80 mcg tablet (Multi For Her 50 Plus) vit C 250 mg-vit E 90 mg-zinc 40 1 tab PO BID 07/31/25 07/31/25 mg-copper 1 dg-qljsia-okvugs capsule (PreserVision AREDS-2) Previous Rx's ?Medication ?Instructions ?Recorded acetaminophen 325 mg tablet 650 mg (2 x 325 mg) PO Q4-6H PRN 08/07/25 pain #120 tabs aspirin 81 mg chewable tablet 81 mg PO BID 30 days #60 tabs 08/07/25 melatonin 5 mg tablet 2.5 mg (1/2 x 5 mg) PO HS 30 days 08/07/25 #15 tabs polyethylene glycol 3350 17 gram 17 g PO DAILY #30 ea 08/07/25 oral powder packet (HealthyLax) Allergies Allergy/AdvReac Type Severity Reaction Status Date / Time Penicillins Allergy Hives Verified 08/01/25 12:25 [facility] Disclaimer: The information contained in this section may have been updated after the patient was seen, as this information can be updated by other users. Medical History (Updated 08/07/25 @ 23:52 by Gini Justin APRN) Elevated troponin Anxiety History of stroke Hypertension Surgical History History of hysterectomy Family History Other No significant family history Social History Smoking Status: Unknown if ever smoked alcohol intake: never substance use type: denies use current occupational status: retired Travel in the last 8 weeks?: None Have you lived/traveled outside US in past 30 days?: No Contact w/someone who lives/traveled outside US past 30 days?: No Exposure to someone with infectious disease in past 14 days?: No Do you have a fever (greater than 100.4 F or 38 C)?: No Have you tested positive for COVID-19?: No Exposed to someone with COVID-19 in past 14 days?: No Do you have a sore throat?: No Do you have a cough?: No Do you have any weakness?: No Do you have any diarrhea?: No Are you experiencing any unusual bleeding?: No Do you have any muscle aches/pain?: No Do you have any abdominal pain?: No Are you experiencing loss of taste or smell?: No Other Medical History Have you received the Flu Vaccine for this season: No Have you received the Pneumonia Vaccine: No ROS Obtained: Yes All systems reviewed & no additional complaints except as documented and Yes Systems reviewed as appropriate & no additional complaints except as documented Physical Exam General General appearance: alert and in no apparent distress Head Head exam: atraumatic, normocephalic and normal inspection Eye Eye exam: Present normal appearance, PERRL and EOMI; Absent scleral icterus ENT ENT exam: Present normal exam and normal external ear exam Neck Neck exam: Present normal inspection and full ROM Chest Chest inspection: Present normal inspection and symmetric chest wall rise Respiratory Respiratory exam: Present normal lung sounds bilaterally; Absent respiratory distress or wheezes Cardiovascular Cardiovascular exam: Present regular rate, normal rhythm and normal heart sounds Abdominal Exam Abdominal exam: Present soft and distention; Absent tenderness, guarding or rebound Extremities Exam Extremities exam: Present normal inspection, full ROM and other (L hip tenderness) Back Exam Back exam: Present normal inspection and full ROM Neurological Exam Neurological exam: Present alert and oriented X3 Psychiatric Psychiatric exam: Present normal affect and normal mood Skin Skin exam: Present warm, dry and other (adam on the left hip that are CDI, post-operative swelling noted) Medical Decision Making Medical Records Medical records reviewed: Yes I reviewed the patient's medical records. Screening: Per USPSTF and CDC recommendations, given the prevalence of disease in our region, it is our hospital?s policy to screen for HIV and viral Hepatitis for all patients aged 18 and over and those with ongoing risk factors. Mere Inquiry Pt receiving controlled substance: No Vital Signs: 08/07/25 21:12 Temperature 98.5 F Temperature Source Oral Pulse Rate [Left Radial] 90 Respiratory Rate 14 Blood Pressure [Right Arm] 153/60 H Blood Pressure Mean [Right Arm] 91 Blood Pressure Source [Right Arm] Automatic Cuff Blood Pressure Position [Right Arm] Supine 02 Sat by Pulse Oximetry 100 Oxygen Delivery Method Room Air Lab Data Lab results reviewed: Yes I reviewed the patient's lab results. Lab Results 08/07/25 21:30: WBC 8.6, RBC 3.36 L, Hgb 11.0 L, Hct 33.0 L, MCV 98.2, MCH 32.7 H, MCHC 33.3, RDW 14.2, Plt Count 300, MPV 9.2, Neut % (Auto) 80.7 H, Lymph % (Auto) 6.3 L, [place] % (Auto) 11.1 H, Eos % (Auto) 0.8, Baso % (Auto) 0.5, Neut # (Auto) 6.9, Lymph # (Auto) 0.5 L, [place] # (Auto) 1.0, Eos # (Auto) 0.1, Baso # (Auto) 0.0, Total Counted 100, Neutrophils % (Manual) 87 H, Lymphocytes % (Manual) 5 L, Monocytes % (Manual) 8, Platelet Estimate Normal, RBC Morphology Normal, Sodium 139, Potassium 3.8, Chloride 107, Carbon Dioxide 29, Anion Gap 6.8, BUN 24 H D, Creatinine 0.60, Estimated Creat Clear 35, Estimated GFR 95, Est GFR ( Amer) 115, Glucose 106 H, Calcium 8.8, Total Bilirubin 1.1, AST 66 H, ALT 54, Alkaline Phosphatase 92, Troponin I 0.13 H, Total Protein 6.2 L, Albumin 3.3 L, Globulin 2.9, Albumin/Globulin Ratio 1.1, Lipase 117 08/07/25 23:00: Urine Color Yellow, Urine Appearance Clear, Urine pH 6.5, Ur Specific [place] 1.015, Urine Protein Negative, Urine Glucose (UA) Negative, Urine Ketones 1+, Urine Blood 1+ A, Urine Nitrate Negative, Urine Bilirubin Negative, Urine Urobilinogen 0.2, Ur Leukocyte Esterase Negative, Urine RBC 3-5, Urine WBC 3-5, Ur Squamous Epith Cells Occasional, Urine Bacteria 1+, Urine Opiates Screen Negative, Urine Methadone Screen Negative, Ur Barbituates Screen Negative, Ur Phencyclidine Scrn Negative, Ur Amphetamines Screen Negative, U Benzodiazepines Scrn Negative, Urine Cocaine Screen Negative, U Marijuana (THC) Screen Negative 08/07/25 21:30 08/07/25 21:30 Orders (Tests/Meds): ED MEDICATIONS Generic Name Dose Route Start Last Admin Trade Name Freq PRN Reason Stop Dose Admin Acetaminophen 650 mg 08/07/25 23:44 Acetaminophen 325mg Tab PO 09/06/25 23:43 Q4HP PRN Fever or Mild Pain (1-3) Sodium Chloride 10 ml 08/07/25 21:12 Sodium Chloride 0.9% 10ml Flush Syringe IV 09/06/25 21:11 NEEDED PRN Maintain IV Site Sodium Chloride 10 ml 08/07/25 22:42 08/07/25 22:43 Sodium Chloride 0.9% 10ml Syr (Rad Only) IV 09/06/25 22:41 10 ml NEEDED PRN Administration Maintain IV Site Discontinued Medications Generic Name Dose Route Start Last Admin Trade Name Freq PRN Reason Stop Dose Admin Aspirin 324 mg 08/07/25 23:28 08/07/25 23:43 Aspirin 81mg Chewable Tablet PO 08/07/25 23:29 324 mg ONCE ONE Administration Iopamidol 160 ml 08/07/25 22:42 08/07/25 22:43 Iopamidol-370 (76%);100ml Bottle IV 08/07/25 22:43 160 ml ONCE ONE Administration Sodium Chloride 100 ml 08/07/25 22:42 08/07/25 22:43 0.9 % Sodium Chloride 50 Ml Vial IV 08/07/25 22:43 100 ml ONCE ONE Administration ORDERS Category Date Time Status CT angio abd/pel - TRAUMA Stat Cat Scan 08/07/25 21:[address] angio chest - dissection Stat Cat Scan 08/07/25 21:[address] angio neck Stat Cat Scan 08/07/25 21:[address] cervical spine wo con Stat Cat Scan 08/07/25 21:[address] head/brain wo con Stat Cat Scan 08/07/25 21:[address] lumbar spine wo con Stat Cat Scan 08/07/25 21:[address] thoracic spine wo con Stat Cat Scan 08/07/25 21:11 Completed Consult to Case Management [CONS] Routine Cons 08/07/25 23:44 Active Femur XR left 2 views [XR femur LT 2V] Stat Exams 08/07/25 21:13 Completed Hip XR left minimum 2 views [XR hip LT 2-3V w/pelvis] Exams 08/07/25 21:12 Completed Stat XR chest portable Stat Exams 08/07/25 21:13 Completed Activated Partial Thrombo Time Stat Lab 08/07/25 21:30 Ordered Complete Blood Count Auto Diff AMLAB Lab 08/08/25 06:00 Ordered Complete Blood Count Auto Diff Stat Lab 08/07/25 21:30 Completed Comprehensive Metabolic Panel AMLAB Lab 08/08/25 06:00 Ordered Comprehensive Metabolic Panel Stat Lab 08/07/25 21:30 Completed Drug Screen,Urine Stat Lab 08/07/25 23:00 Completed Lipase Stat Lab 08/07/25 21:30 Completed Prothrombin Time INR Stat Lab 08/07/25 21:30 Ordered Troponin I Q3H Lab 08/08/25 00:15 Ordered Troponin I Q3H Lab 08/08/25 03:15 Ordered Troponin I Stat Lab 08/07/25 21:30 Completed Urinalysis and Microscopic Stat Lab 08/07/25 23:00 Completed EKG Request [ECG Request] Stat Y 08/07/25 21:21 Ordered Medical Decision Narrative: Patient is an 85-year-old female with a past medical history of recent left hip replacement discharged from [facility] to [facility] facility who presented to the emergency department after a fall. Patient is alert and oriented x 1 at baseline unable to provide etiology of the fall. Differential includes but not limited to: Mechanical fall, syncope, new acute fractures, intracranial pathology, arrhythmia, electrolyte abnormalities, urinary tract infection, amongst others. Patient's labs were reviewed and interpreted by myself: CBC showed no leukocytosis, hemoglobin was stable. CMP was unremarkable. Initial troponin was elevated at 0.13. UA showed no evidence of infection. EKG was reviewed and interpreted by myself and showed no acute ST or T wave changes concerning for ischemia. Patient's CT head CTA neck CT chest CT abdomen as well as x-rays of the chest and pelvis showed no acute pathology. Given that patient is unable to participate in the conversation with unclear etiology versus mechanical versus syncope in nature with elevated troponin plan to admit the patient for serial troponins. Patient was given 324 of aspirin here in the emergency department. Was accepted to the hospitalist for serial troponins overnight. Cardiology consultation in the morning if necessary. Critical Care Critical Care Time Critical Care Time: No
[2025-08-07 21:45] LABS: Hematocrit 33.0 % (37.0-47.0); Hemoglobin 11.0 g/dL (12.2-16.2); Immature Granulocytes % 0.6 %; Mean Corpuscular HGB Conc 33.3 g/dL (31.8-35.4); Mean Corpuscular Hemoglobin 32.7 pg (27.0-31.2); Mean Corpuscular Volume 98.2 fl (81-99); Nucleated Red Blood Cells % 0 %; Platelet Count 300 K/mm3 (142-424); Red Blood Count 3.36 M/mm3 (4.20-5.40); Red Cell Distribution Width-SD 50.4 fL; White Blood Count 8.6 K/mm3 (4.8-10.8)
[2025-08-07 21:53] LABS: Albumin Level 3.3 g/dl (3.5-5.0); Chloride 107 mmol/L (98-107); Sodium 139 mmol/L (136-145)
[2025-08-07 21:54] LABS: Potassium 3.8 mmoL/L (3.5-5.1)
[2025-08-07 21:56] LABS: Alanine Aminotransferase 54 U/L (12-78); Albumin/Globulin Ratio 1.1 (1.1-1.8); Alkaline Phosphatase 92 U/L (38-126); Anion Gap 6.8 mEq/L (5-15); Aspartate Amino Transferase 66 U/L (14-36); Bilirubin,Total 1.1 mg/dl (0.2-1.3); Blood Urea Nitrogen 24 mg/dl (7-17); Carbon Dioxide 29 mmol/L (22.0-30.0); Creatinine Clearance Estimated 35 mL/min (50-200); Creatinine,Serum 0.60 mg/dl (0.52-1.04); Estimated Glomerular Filt Rate 95 ml/min (>60); GFR (African American) 115 ML/MIN (>60); Globulin 2.9 g/dL (1.3-3.2); Total Protein,Serum 6.2 g/dl (6.3-8.2)
[2025-08-07 21:57] LABS: Calcium 8.8 mg/dl (8.4-10.2); Glucose 106 mg/dl (74-100); Lipase 117 U/L (23-300)
--- NOTE | 2025-08-07 22:06 | ECG_ITS ---
APPROVED REPORT Exam: Resting ECG HR:93 bpm ECG Measurements Heart Rate 93 AXES MA 142 P 78 QRSd 89 QRS 75 QT 376 T 43 QTc 427 Conclusion Normal sinus rhythm without acute ST or T wave changes concerning for ischemia Electronically signed by : Erlinda Cary, 08/09/2025 01:07:52
[2025-08-07 22:09] LABS: Total Cells Counted 100; Troponin I 0.13 ng/ml (0.00-0.034)
[2025-08-07 22:10] LABS: RBC Morphology Normal
[2025-08-07] MEDS: SODIUM CHLORIDE 0.9% 10ML SYR (RAD ONLY) 10 ML IV (22:43)
[2025-08-07] MEDS: 0.9 % SODIUM CHLORIDE 50 ML VIAL 100 ML IV (22:43)
[2025-08-07] MEDS: IOPAMIDOL-370 (76%);100ML BOTTLE 160 ML IV (22:43)
[2025-08-07 23:08] LABS: Microscopic, Urine URINE MICROSCOPIC (MICROSCOPIC)
[2025-08-07 23:14] LABS: Bilirubin,Urine Negative (Negative); Color,Urine YELLOW (Yellow); Glucose,Urine (UA) Negative (Negative); Ketones,Urine 1+ (Negative); Leukocyte Esterase,Urine Negative (Negative); PH,Urine 6.5 (5.0-8.5); Protein,Urine Negative (Negative); Specific Gravity, Urine 1.015 (1.005-1.030); Urobilinogen,Urine 0.2 EU/dl (0.2)
[2025-08-07 23:25] LABS: Amphetamine/Metha Screen,Urine Negative ng/ml (<1000); Barbiturates Screen,Urine Negative ng/ml (<200)
[2025-08-07 23:26] LABS: Benzodiazepines Screen,Urine Negative ng/ml (<200)
[2025-08-07 23:28] LABS: Methadone Screen,Urine Negative ng/ml (<300)
[2025-08-07 23:29] LABS: Opiate Screen,Urine Negative ng/ml (<300); Phencyclidine Screen,Urine Negative ng/ml (<25)
[2025-08-07 23:35] LABS: Bacteria,Urine 1+ /lpf; Squamous Epithelial Cell,Urine Occasional #/hpf (0-5)
[2025-08-07] MEDS: ASPIRIN 81MG CHEWABLE TABLET 324 MG PO (23:43)
--- NOTE | 2025-08-07 23:47 | EXP.HP ---
History of Present Illness *Admission Date: 08/07/25 *Reason for visit:: Fall *History of present illness: This is an 85-year-old female with past medical history significant for hypertension, anxiety, recent hip fracture, patient provide recurrent multiple falls, history of stroke. Patient presents to [facility] secondary to a fall that occurred at her facility. History provided per staff and chart review as patient is a poor historian. It was noted that the fall was unwitnessed. Discharged yesterday in good standing after undergoing a hip fracture repair. Imaging studies were obtained without any acute findings workup in the emergency department. Notable elevated troponin level found. Patient was without any complaints of chest pain. Received 324 mg aspirin. Hospitalist consulted for hospital admission for continued overnight observation due to elevated troponin level. [facility] Disclaimer: The information contained in this section may have been updated after the patient was seen, as this information can be updated by other users. Medical History Elevated troponin Anxiety History of stroke Hypertension Surgical History History of hysterectomy Family History Other No significant family history Social History Smoking Status: Unknown if ever smoked alcohol intake: never substance use type: denies use current occupational status: retired Travel in the last 8 weeks?: None Have you lived/traveled outside US in past 30 days?: No Contact w/someone who lives/traveled outside US past 30 days?: No Exposure to someone with infectious disease in past 14 days?: No Do you have a fever (greater than 100.4 F or 38 C)?: No Have you tested positive for COVID-19?: No Exposed to someone with COVID-19 in past 14 days?: No Do you have a sore throat?: No Do you have a cough?: No Do you have any weakness?: No Do you have any diarrhea?: No Are you experiencing any unusual bleeding?: No Do you have any muscle aches/pain?: No Do you have any abdominal pain?: No Are you experiencing loss of taste or smell?: No Other Medical History Have you received the Flu Vaccine for this season: No Have you received the Pneumonia Vaccine: No Review of Systems Review of Systems Review of systems:: unable to obtain Constitutional Constitutional: Reports as per HPI Eyes Eyes: Reports as per HPI ENT Ears, Nose, Mouth, and Throat: Reports as per HPI *Cardiovascular Cardiovascular: Reports as per HPI *Respiratory Respiratory: Reports as per HPI *Gastrointestinal Gastrointestinal: Reports as per HPI *Genitourinary Genitourinary: Reports as per HPI *Musculoskeletal Musculoskeletal: Reports as per HPI Integumentary/Breasts Skin/Breast: Reports as per HPI *Neurologic Neurologic: Reports as per HPI Psychiatric Psychiatric: Reports as per HPI Endocrine Endocrine: Reports as per HPI Hematologic/Lymphatic Hematologic/Lymphatic: Reports as per HPI Meds Home Medications and Allergies Home Medications ?Medication ?Instructions ?Recorded ?Confirmed ?Type alendronate 70 mg tablet 70 mg PO WEEKLY 03/23/24 08/08/25 History amlodipine 5 mg tablet 5 mg PO DAILY 03/23/24 08/08/25 History buspirone 10 mg tablet 10 mg PO TID 07/31/25 08/08/25 History Held on 08/07/25. Instructions: Pending improvement in mentation. Patient not exhibiting anxiety at this time calcium 600 mg capsule 600 mg PO DAILY 07/31/25 08/08/25 History yphyjprruitg-jtdbdjk-zmqon acid 1 tab PO DAILY 07/31/25 08/08/25 History 400 mcg-vitamin K 80 mcg tablet (Multi For Her 50 Plus) vit C 250 mg-vit E 90 mg-zinc 40 1 tab PO BID 07/31/25 08/08/25 History mg-copper 1 ri-ohaexq-nzcufj capsule (PreserVision AREDS-2) acetaminophen 325 mg tablet 650 mg (2 x 325 mg) PO Q4-6H PRN 08/07/25 08/08/25 Rx pain #120 tabs melatonin 5 mg tablet 2.5 mg (1/2 x 5 mg) PO HS 30 days 08/07/25 08/08/25 Rx #15 tabs polyethylene glycol 3350 17 gram 17 g PO DAILY #30 ea 08/07/25 08/08/25 Rx oral powder packet (HealthyLax) New Prescriptions to Start Prescriptions: Allergies Allergy/AdvReac Type Severity Reaction Status Date / Time Penicillins Allergy Hives Verified 08/01/25 12:25 Exam Data for Last 24 hours Vital signs and Labs for Last 24 Hours: Temp Pulse Resp BP Pulse Ox O2 Del Method 98.5 F 90 14 153/60 H 100 Room Air 08/07/25 21:12 08/07/25 21:12 08/07/25 21:12 08/07/25 21:12 08/07/25 21:12 08/07/25 21:12 Laboratory Results - last 24 hr 08/07/25 21:30: WBC 8.6, RBC 3.36 L, Hgb 11.0 L, Hct 33.0 L, MCV 98.2, MCH 32.7 H, MCHC 33.3, RDW 14.2, Plt Count 300, MPV 9.2, Neut % (Auto) 80.7 H, Lymph % (Auto) 6.3 L, [place] % (Auto) 11.1 H, Eos % (Auto) 0.8, Baso % (Auto) 0.5, Neut # (Auto) 6.9, Lymph # (Auto) 0.5 L, [place] # (Auto) 1.0, Eos # (Auto) 0.1, Baso # (Auto) 0.0, Total Counted 100, Neutrophils % (Manual) 87 H, Lymphocytes % (Manual) 5 L, Monocytes % (Manual) 8, Platelet Estimate Normal, RBC Morphology Normal, Sodium 139, Potassium 3.8, Chloride 107, Carbon Dioxide 29, Anion Gap 6.8, BUN 24 H D, Creatinine 0.60, Estimated Creat Clear 35, Estimated GFR 95, Est GFR ( Amer) 115, Glucose 106 H, Calcium 8.8, Total Bilirubin 1.1, AST 66 H, ALT 54, Alkaline Phosphatase 92, Troponin I 0.13 H, Total Protein 6.2 L, Albumin 3.3 L, Globulin 2.9, Albumin/Globulin Ratio 1.1, Lipase 117 08/07/25 23:00: Urine Color Yellow, Urine Appearance Clear, Urine pH 6.5, Ur Specific [place] 1.015, Urine Protein Negative, Urine Glucose (UA) Negative, Urine Ketones 1+, Urine Blood 1+ A, Urine Nitrate Negative, Urine Bilirubin Negative, Urine Urobilinogen 0.2, Ur Leukocyte Esterase Negative, Urine RBC 3-5, Urine WBC 3-5, Ur Squamous Epith Cells Occasional, Urine Bacteria 1+, Urine Opiates Screen Negative, Urine Methadone Screen Negative, Ur Barbituates Screen Negative, Ur Phencyclidine Scrn Negative, Ur Amphetamines Screen Negative, U Benzodiazepines Scrn Negative, Urine Cocaine Screen Negative, U Marijuana (THC) Screen Negative I & O for Last 24 hours: Intake & Output 08/04/25 08/05/25 08/06/25 08/07/25 23:59 23:59 23:59 23:59 Weight 54.431 kg Constitutional Constitutional: no acute distress *Routine HEENT Exam Head: Present normocephalic and atraumatic Eye: Present EOMI ENT: Present mucous membranes moist *Routine Neck Exam Neck: Present supple and full ROM *Routine Respiratory Exam Respiratory: Present normal respiratory effort *Routine Cardiovascular Exam Cardiovascular: Present RRR, Normal S1 and Normal S2 *Routine Abdominal Exam Abdominal: Present soft and normoactive bowel sounds *Routine Rectal Exam Rectal:: deferred *Routine Genitalia Exam Genitalia:: deferred *Routine Extremities Exam Extremities: Present pulses intact and normal capillary refill *Routine Skin Exam Skin: Present intact *Routine Neurological Exam Comments: A&O x1-Alert to self Assessment and Plan *Assessment and plan (1) Recurrent falls: Status: Acute Category: Medical Code(s): R29.6 - Repeated falls (2) Elevated troponin: Status: Acute Category: Medical Code(s): R79.89 - Other specified abnormal findings of blood chemistry (3) Closed intertrochanteric fracture of left hip: Status: Acute Qualifiers: Encounter type: subsequent encounter Fracture alignment: displaced Fracture healing: with routine healing Qualified Code(s): S72.142D - Displaced intertrochanteric fracture of left femur, subsequent encounter for closed fracture with routine healing Category: Medical Code(s): S72.142A - Displaced intertrochanteric fracture of left femur, initial encounter for closed fracture (4) Aortic insufficiency: Status: Acute Category: Medical Code(s): I35.1 - Nonrheumatic aortic (valve) insufficiency (5) Hypertension: Status: Acute Qualifiers: Hypertension type: primary hypertension Qualified Code(s): I10 - Essential (primary) hypertension Category: Medical Code(s): I10 - Essential (primary) hypertension (6) Anxiety: Status: Acute Category: Medical Code(s): F41.9 - Anxiety disorder, unspecified (7) History of stroke: Status: Acute Category: Medical Code(s): Z86.73 - Personal history of transient ischemic attack (TIA), and cerebral infarction without residual deficits Plan Assessment/plan: Caity Villanueva is a 85-year-old female who sustained an unwitnessed fall. Discussed case with ER physician, request admission for surgical fixation. Agreed to admit for further care. Orthopedics consulted. Responded well to surgery. Continues to have delirium. Awaiting improvement in mentation to be appropriate for discharge. Problems addressed as follows: 1. Elevated troponin: Inital trop 0.13. EKG showed no acute ST or T wave changes concerning for ischemia. Continue to monitor trops, resume cardiac monitoring. 2. Unwitnessed fall: Recently left femur fracture->closed intertrochanteric fracture left hip->s/p cephalomedullary nailing left proximal femur on 08/01/2025. Imaging obtained per ED workup and was without any acute findings. PT and OT. Fall precautions. 3. Chronic anemia: Hgb 10.4- stable. Continue to monitor. Trend with morning labs. 4. History of CVA, HX of aphasia, stridor: Resume aspirin 81 mg twice daily. 5. HTN/severe aortic insufficiency: stable- resume home antihypertensive medications. ECHO on 08/01/2025 revealed severe aortic insufficiency, trivial posterior pericardial effusion without signs of tamponade. 6. Anxiety: Continue Auvelity 1 tab twice daily. Holding BuSpar daily Full code Cardiac diet Aspirin 81 mg twice daily for DVT prophylaxis.
[2025-08-08] VITALS (10 sets, daily range): BP systolic 157–189; BP diastolic 56–92; PULSE 84–120; RESP 16–20; TEMP 36.7–39.4; O2SAT 90–97; BMI 20.8; BMI 20.9
--- NOTE | 2025-08-08 00:08 | PC.NURSE ---
Pt pulled her IV in LAC out, another IV placed in CHANO
--- NOTE | 2025-08-08 00:39 | PC.NURSE ---
Patient arrived to floor via stretcher from ED at 00:37.
[2025-08-08 00:50] LABS: Troponin I 0.11 ng/ml (0.00-0.034)
--- NOTE | 2025-08-08 02:15 | PC.NURSE ---
patient pulled out CHANO IV
--- NOTE | 2025-08-08 02:28 | PC.WOUNDNOTE ---
incision with adam to left outer thigh incision with adam to left hip abrasion to right alfaro
[2025-08-08 04:07] LABS: Albumin Level 3.2 g/dl (3.5-5.0); Chloride 107 mmol/L (98-107); Hematocrit 31.2 % (37.0-47.0); Hemoglobin 10.4 g/dL (12.2-16.2); Immature Granulocytes % 0.5 %; Mean Corpuscular HGB Conc 33.3 g/dL (31.8-35.4); Mean Corpuscular Hemoglobin 32.6 pg (27.0-31.2); Mean Corpuscular Volume 97.8 fl (81-99); Nucleated Red Blood Cells % 0 %; Platelet Count 303 K/mm3 (142-424); Potassium 3.7 mmoL/L (3.5-5.1); Red Blood Count 3.19 M/mm3 (4.20-5.40); Red Cell Distribution Width-SD 50.0 fL; Sodium 140 mmol/L (136-145); White Blood Count 8.0 K/mm3 (4.8-10.8)
[2025-08-08 04:10] LABS: Alanine Aminotransferase 48 U/L (12-78); Albumin/Globulin Ratio 1.1 (1.1-1.8); Alkaline Phosphatase 86 U/L (38-126); Anion Gap 9.7 mEq/L (5-15); Aspartate Amino Transferase 58 U/L (14-36); Bilirubin,Total 1.0 mg/dl (0.2-1.3); Blood Urea Nitrogen 19 mg/dl (7-17); Calcium 8.6 mg/dl (8.4-10.2); Carbon Dioxide 27 mmol/L (22.0-30.0); Creatinine Clearance Estimated 35 mL/min (50-200); Creatinine,Serum 0.60 mg/dl (0.52-1.04); Estimated Glomerular Filt Rate 95 ml/min (>60); GFR (African American) 115 ML/MIN (>60); Globulin 2.8 g/dL (1.3-3.2); Glucose 107 mg/dl (74-100); Total Protein,Serum 6.0 g/dl (6.3-8.2)
[2025-08-08 04:22] LABS: Troponin I 0.09 ng/ml (0.00-0.034)
--- NOTE | 2025-08-08 07:41 | HMH.PHAINT1 ---
Pharmacy Intervention Comments: MEDICATION RECONCILIATION COMPLETED ON PATIENT USING DISCHARGE SUMMARY FROM YESTERDAY. -MARY IBARRA, AMYD
[2025-08-08] MEDS: AMLODIPINE 5MG TABLET 5 MG PO (08:53)
[2025-08-08] MEDS: POLYETHYLENE GLYCOL 3350 17 GM PACKET PO (08:53)
[2025-08-08] MEDS: ASPIRIN 81MG CHEWABLE TABLET 81 MG PO (08:53)
[2025-08-08] MEDS: OYSTER SHELL CALCIUM (ELEMENTAL) 500MG TAB 500 MG PO (08:53)
--- NOTE | 2025-08-08 09:21 | HMH.OTEV ---
OT Evaluation Rehab OT IP Evaluation Start: 08/08/25 00:57 Freq: ONCE Status: Active Protocol: Document 08/08/25 09:13 NAHED (Rec: 08/08/25 09:20 NAHED [id number]) Rehab OT IP Assessment Subjective History This is an 85-year-old female with past medical history significant for hypertension, anxiety, recent hip fracture, patient provide recurrent multiple falls, history of stroke. Patient presents to [facility] secondary to a fall that occurred at her facility. History provided per staff and chart review as patient is a poor historian. It was noted that the fall was unwitnessed. Discharged yesterday in good standing after undergoing a hip fracture repair. Imaging studies were obtained without any acute findings workup in the emergency department. Notable elevated troponin level found. Patient was without any complaints of chest pain. Received 324 mg aspirin. Hospitalist consulted for hospital admission for continued overnight observation due to elevated troponin level. Yeah. Patient currently hospitalized for hip fracture and underwent surgical intervention. Referred to SNF for rehab. Had an unwitnessed fall and return back to [facility]. elevated troponin level noted. Prior to fall at home, Patient lived with in 1 story home with 2 [employer]. Independent with ADLs and fx'l mobility. Worked out daily 2-3 times a week at the [facility]. assist with transportation. Subjective Patient completed bed mobility this date with requiring Mod A. Patient unwilling to stand this morning. Will attempt standing later this afternoon. Patient was assisted back to bed in upright position with needs met . Objective Patient Orientation Person Right Upper WFL Extremity Gross ROM Left Upper Extremity WFL Gross ROM Bed Mobility bed mobility - supine/sit Assist Level Moderate x 1 (50% assist) Rehab OT IP prob,goals,plan Problems Date of Evaluation: 08/08/25 OT IP Problems Bed Mobility,Transfers,Balance,Self care,Safety Rehab Potential Rehab Potential Good Equipment Needs Assistive Devices Rolling / Wheeled Walker Plan OT intervention Plan Bed Mobility,Transfers,Balance,Self care,Safety, Therapeutic Exercise OT Plan Frequency Daily Duration LOS Discharge Goals Bed Mobility Ability Assistance x1 Sit to Stand Chair Minimal x 2 (25% assist) Transfer Ability Discharge Plan OT Discharge Plan After medical d/c, recommend patient to return back to SNF for rehab and nursing care. Patient to continue skilled OT services while here at [facility]. Eval Complexity Eval Charge Codes 46763 - Low Complexity PHYSICIAN CERTIFICATION: I certify the specified therapy services for Caity Jian are required, authorized, and reviewed every 30 days.
--- NOTE | 2025-08-08 09:36 | EXP.CARD.CON ---
History of Present Illness History of Present Illness Consult date: 08/08/25 Chief complaint: fall History of present illness: 85-year-old white female with advanced dementia presents from SNF with fall. Troponin was checked in the absence of angina and slightly elevated at 0.13 then trending down. Patient was evaluated for bumped troponin a little over 1 year ago after a fall at home. 2D echo at the time revealed moderate to severe aortic insufficiency. She followed up once in the office and has not come again for ischemic evaluation or further workup. She presented to the hospital here 2 weeks ago with a fall and fracture of her femur. We repeated 2D echo which showed no acute changes. Discharged home yesterday to SNF and had another fall and was brought back to the hospital where troponins again were checked and again slightly elevated which is why we are consulted. Patient is responsive to verbal stimuli but not participating in visit. She cannot contribute any information. Her is not available at this time. [facility] Disclaimer: The information contained in this section may have been updated after the patient was seen, as this information can be updated by other users. Medical History Elevated troponin Anxiety History of stroke Hypertension Surgical History History of hysterectomy Family History Other No significant family history Social History Smoking Status: Unknown if ever smoked alcohol intake: never substance use type: denies use current occupational status: retired Travel in the last 8 weeks?: None Have you lived/traveled outside US in past 30 days?: No Contact w/someone who lives/traveled outside US past 30 days?: No Exposure to someone with infectious disease in past 14 days?: No Do you have a fever (greater than 100.4 F or 38 C)?: No Have you tested positive for COVID-19?: No Exposed to someone with COVID-19 in past 14 days?: No Do you have a sore throat?: No Do you have a cough?: No Do you have any weakness?: No Do you have any diarrhea?: No Are you experiencing any unusual bleeding?: No Do you have any muscle aches/pain?: No Do you have any abdominal pain?: No Are you experiencing loss of taste or smell?: No Review of Systems Review of Systems Review of systems:: unable to obtain Constitutional Constitutional: Denies fatigue and Denies weakness Eyes Eyes: Denies loss of vision ENT Ears, Nose, Mouth, and Throat: Denies hearing loss *Cardiovascular Cardiovascular: Denies chest pain and Denies dyspnea *Respiratory Respiratory: Denies cough and Denies dyspnea *Gastrointestinal Gastrointestinal: Denies change in stool character, Denies nausea and Denies vomiting *Musculoskeletal Musculoskeletal: Denies muscle weakness Integumentary/Breasts Skin/Breast: Denies changing lesions *Neurologic Neurologic: Reports as per HPI, Denies loss of vision and Denies weakness Endocrine Endocrine: Denies fatigue Exam Data for Last 24 hours Vital signs and Labs for Last 24 Hours: Temp Pulse Resp BP Pulse Ox O2 Del Method 98.6 F 110 H 17 189/92 H 93 L Room Air 08/08/25 07:58 08/08/25 08:00 08/08/25 07:58 08/08/25 07:58 08/08/25 07:58 08/08/25 09:00 Laboratory Results - last 24 hr 08/07/25 21:30: WBC 8.6, RBC 3.36 L, Hgb 11.0 L, Hct 33.0 L, MCV 98.2, MCH 32.7 H, MCHC 33.3, RDW 14.2, Plt Count 300, MPV 9.2, Neut % (Auto) 80.7 H, Lymph % (Auto) 6.3 L, [place] % (Auto) 11.1 H, Eos % (Auto) 0.8, Baso % (Auto) 0.5, Neut # (Auto) 6.9, Lymph # (Auto) 0.5 L, [place] # (Auto) 1.0, Eos # (Auto) 0.1, Baso # (Auto) 0.0, Total Counted 100, Neutrophils % (Manual) 87 H, Lymphocytes % (Manual) 5 L, Monocytes % (Manual) 8, Platelet Estimate Normal, RBC Morphology Normal, Sodium 139, Potassium 3.8, Chloride 107, Carbon Dioxide 29, Anion Gap 6.8, BUN 24 H D, Creatinine 0.60, Estimated Creat Clear 35, Estimated GFR 95, Est GFR ( Amer) 115, Glucose 106 H, Calcium 8.8, Total Bilirubin 1.1, AST 66 H, ALT 54, Alkaline Phosphatase 92, Troponin I 0.13 H, Total Protein 6.2 L, Albumin 3.3 L, Globulin 2.9, Albumin/Globulin Ratio 1.1, Lipase 117 08/07/25 23:00: Urine Color Yellow, Urine Appearance Clear, Urine pH 6.5, Ur Specific [place] 1.015, Urine Protein Negative, Urine Glucose (UA) Negative, Urine Ketones 1+, Urine Blood 1+ A, Urine Nitrate Negative, Urine Bilirubin Negative, Urine Urobilinogen 0.2, Ur Leukocyte Esterase Negative, Urine RBC 3-5, Urine WBC 3-5, Ur Squamous Epith Cells Occasional, Urine Bacteria 1+, Urine Opiates Screen Negative, Urine Methadone Screen Negative, Ur Barbituates Screen Negative, Ur Phencyclidine Scrn Negative, Ur Amphetamines Screen Negative, U Benzodiazepines Scrn Negative, Urine Cocaine Screen Negative, U Marijuana (THC) Screen Negative 08/08/25 00:10: Troponin I 0.11 H 08/08/25 03:51: WBC 8.0, RBC 3.19 L, Hgb 10.4 L, Hct 31.2 L, MCV 97.8, MCH 32.6 H, MCHC 33.3, RDW 14.2, Plt Count 303, MPV 9.2, Neut % (Auto) 78.7, Lymph % (Auto) 8.5 L, [place] % (Auto) 11.1 H, Eos % (Auto) 0.8, Baso % (Auto) 0.4, Neut # (Auto) 6.3, Lymph # (Auto) 0.7, [place] # (Auto) 0.9, Eos # (Auto) 0.1, Baso # (Auto) 0.0, Sodium 140, Potassium 3.7, Chloride 107, Carbon Dioxide 27, Anion Gap 9.7, BUN 19 H, Creatinine 0.60, Estimated Creat Clear 35, Estimated GFR 95, Est GFR ( Amer) 115, Glucose 107 H, Calcium 8.6, Total Bilirubin 1.0, AST 58 H, ALT 48, Alkaline Phosphatase 86, Troponin I 0.09 H, Total Protein 6.0 L, Albumin 3.2 L, Globulin 2.8, Albumin/Globulin Ratio 1.1 I & O for Last 24 hours: Intake & Output 08/05/25 08/06/25 08/07/25 08/08/25 23:59 23:59 23:59 23:59 Intake Total Output Total 400 / 400 Balance -380 / -380 Weight 120 lb 123 lb Constitutional Constitutional: no acute distress, thin and cooperative *Routine HEENT Exam Eye: Present PERRL *Routine Respiratory Exam Respiratory: Present CTA bilaterally; Absent accessory muscle use, wheezes or crackles *Routine Cardiovascular Exam Cardiovascular: Present RRR, Normal S1 and Normal S2; Absent murmur, gallop or rubs *Routine Abdominal Exam Abdominal: Present soft; Absent tenderness *Routine Skin Exam Skin: Present intact; Absent erythema or wounds *Routine Neurological Exam Neurological: Absent alert or oriented X3 Routine Psychiatric Exam Psychiatric: Present cooperative Meds Home Medications and Allergies Home Medications ?Medication ?Instructions ?Recorded ?Confirmed ?Type alendronate 70 mg tablet 70 mg PO WEEKLY 03/23/24 08/08/25 History amlodipine 5 mg tablet 5 mg PO DAILY 03/23/24 08/08/25 History buspirone 10 mg tablet 10 mg PO TID 07/31/25 08/08/25 History Held on 08/07/25. Instructions: Pending improvement in mentation. Patient not exhibiting anxiety at this time calcium 600 mg capsule 600 mg PO DAILY 07/31/25 08/08/25 History wbnczbquopvn-sejcqzr-mdfda acid 1 tab PO DAILY 07/31/25 08/08/25 History 400 mcg-vitamin K 80 mcg tablet (Multi For Her 50 Plus) vit C 250 mg-vit E 90 mg-zinc 40 1 tab PO BID 07/31/25 08/08/25 History mg-copper 1 uz-csqeki-aqdqmu capsule (PreserVision AREDS-2) acetaminophen 325 mg tablet 650 mg (2 x 325 mg) PO Q4-6H PRN 08/07/25 08/08/25 Rx pain #120 tabs melatonin 5 mg tablet 2.5 mg (1/2 x 5 mg) PO HS 30 days 08/07/25 08/08/25 Rx #15 tabs polyethylene glycol 3350 17 gram 17 g PO DAILY #30 ea 08/07/25 08/08/25 Rx oral powder packet (HealthyLax) aspirin 81 mg chewable tablet 81 mg PO BID 08/08/25 08/08/25 History New Prescriptions to Start Prescriptions: Allergies Allergy/AdvReac Type Severity Reaction Status Date / Time Penicillins Allergy Hives Verified 08/01/25 12:25 Assessment and Plan *Assessment and plan (1) Elevated troponin: Status: Acute Category: Medical Code(s): R79.89 - Other specified abnormal findings of blood chemistry (2) Recurrent falls: Status: Acute Category: Medical Code(s): R29.6 - Repeated falls (3) Aortic insufficiency: Status: Acute Category: Medical Code(s): I35.1 - Nonrheumatic aortic (valve) insufficiency (4) Closed intertrochanteric fracture of left hip: Status: Acute Qualifiers: Encounter type: subsequent encounter Fracture alignment: displaced Fracture healing: with routine healing Qualified Code(s): S72.142D - Displaced intertrochanteric fracture of left femur, subsequent encounter for closed fracture with routine healing Category: Medical Code(s): S72.142A - Displaced intertrochanteric fracture of left femur, initial encounter for closed fracture Plan Elevated Troponin - mild trop elevation in 85 yo w/severe AI, post surgical repair of femur fx, and recurrent falls - checked in absence of angina - pt severely demented, no family bedside - cont ASA, repeat EKG, unlikely a candidate for CBI Mod-Severe AI - stable on ECHO last week compared with 1 year ago - pt appears euvolemic - no intervention required Recurrent Falls - needs direct supervision/help with all ADLs for now to avoid another fall Dementia - complicate all aspects of care - is decision maker
--- NOTE | 2025-08-08 09:48 | DIET.NUTRFU ---
Based on previous admit, just discharged yesterday. She will continue to trigger for severe protein calorie malnutrition secondary to poor po intake, low BMI and weakness. Provider aware. Diet was changed to regular and ensure was started with meals.
--- NOTE | 2025-08-08 09:50 | SW/DCPLANNER ---
Addendum entered by Corrine Juan 08/09/25 09:56: I have updated Alyssa w/ [facility] that patient is not ready for discharge today. Addendum entered by Corrine Juan 08/08/25 12:26: Patient's voiced that he is agreeable to bedhold at [facility] and this has been discussed w/ Alyssa at [facility]. Per Alyssa patient's auth is good till 08/10. Dr Mitchell would like to see if patient can tolerate diet prior to discharge. CM will continue to follow up. Original Note: Patient currently resides at [facility] level of care. Updated patient information has been faxed to Alyssa w/ [facility]. Per MD pending Cardiology patient may return SNF level of care today. CM will continue to follow up.
--- NOTE | 2025-08-08 10:03 | HMH.PTEV ---
Physical Therapy Evaluation Rehab PT IP Evaluation Start: 08/08/25 00:57 Freq: ONCE Status: Active Protocol: Document 08/08/25 09:54 JASON (Rec: 08/08/25 10:03 JASON [id number]) Subjective/History History History Per H&P: This is an 85-year-old female with past medical history significant for hypertension, anxiety, recent hip fracture, patient provide recurrent multiple falls, history of stroke. Patient presents to [facility] secondary to a fall that occurred at her facility. History provided per staff and chart review as patient is a poor historian. It was noted that the fall was unwitnessed. Discharged yesterday in good standing after undergoing a hip fracture repair. Imaging studies were obtained without any acute findings workup in the emergency department. Notable elevated troponin level found. Patient was without any complaints of chest pain. Received 324 mg aspirin. Hospitalist consulted for hospital admission for continued overnight observation due to elevated troponin level. Subjective Subjective Pt resides at a retirement. Pt with recent hip fracture. Pt is aphasic at baseline. [facility] How much help from another person do you currently need... Turning from your A lot back to your side while in a flat bed without using bedrails? Moving from lying on A lot back to sitting on the side of a flat bed without using bedrails? Moving to and from a A lot bed to a chair ( including a wheelchair)? Standing up from a A lot chair using your arms? (e.g., wheelchair, bedside chair) Walking in hospital A lot room? Climbing 3-5 steps A lot with a railing? Mobility Score 12 Mobility Level [facility] Mobility 4 Move to chair/commode Mobility Calculator Rehab PT IP Eval Objective Appearance Patient Behavior Appropriate Patient Orientation Person Difficulty following none instructions Speech Pattern Clear Ambulation Patient Able to No Ambulate Ambulation Observation IP General Gait No Deviations/Normal Pattern Observation Balance Ability to Arise Able, uses arms to help Sitting Balance Leans or slides in chair Transfers Bed Transfer Ability Moderate x 1 (50% assist) Rehab PT IP prob,goals,plan Problems Date of Evaluation: 08/08/25 PT IP Problems Bed Mobility,Transfers,Gait,Balance,Self care,Safety Rehab Potential Rehab Potential Good Plan PT Intervention Plan Bed Mobility,Transfers,Gait,Balance,Self care,Safety, Therapeutic Exercise Other Intervention 1-2 times Plan PT Plan Frequency Daily Duration LOS Discharge Goals Bed Transfer Ability Minimal x 1 (25% assist) Sit to Stand Chair Moderate x 1 (50% assist) Transfer Ability Discharge Plan PT Discharge Plan Initial physical therapy evaluation performed. Patient presents below baseline at this time in functional mobility, transfers, and strength. PT recommending inpatient rehabilitation facility (IRF) placement upon d/c from [facility]. Pt would benefit from skilled PT while at [facility] to prevent further functional decline and maximize safety with mobility. Eval Complexity Eval Charge Codes 63573 - Moderate Complexity PHYSICIAN CERTIFICATION: I certify the specified therapy services for Caity Villar are required, authorized, and reviewed every 30 days.
--- NOTE | 2025-08-08 10:08 | ECG_ITS ---
APPROVED REPORT Exam: Resting ECG HR:106 bpm ECG Measurements Heart Rate 106 AXES TN 146 P 70 QRSd 91 QRS 9 QT 340 T 47 QTc 402 Conclusion SINUS TACHYCARDIA POSSIBLE LEFT ATRIAL ENLARGEMENT [-0.1mV P-WAVE IN V1/V2] NONSPECIFIC T-WAVE ABNORMALITY ABNORMAL RHYTHM ECG UNCONFIRMED REPORT Electronically signed by : Tano Alarcon MD 08/09/2025 08:39:34
--- NOTE | 2025-08-08 12:38 | P.PN_ITS ---
Subjective *Date: 08/08/25 *Time: 16:00 Interval history: Fatigued this morning. Opened eyes on exam but not interacting significantly. Nursing unable to get patient to eat breakfast this morning. Stable on room air. Later after rounds, family at bedside. Had further discussion. No plan for intervention today with heart cath. Will continue conservative management. Attempting to get patient up to bedside chair and feed with assistance today. Will advance to mechanical soft diet. Afebrile Medical Exam Vital signs and Labs for Last 24 Hours: Vital Signs Temp Pulse Pulse Resp BP BP Pulse Ox 08/08/25 12:00 98.3 F 108 H 16 164/62 H 94 L 08/08/25 10:12 08/08/25 09:00 08/08/25 08:00 110 H 08/08/25 07:58 98.6 F 117 H 17 189/92 H 93 L 08/08/25 06:32 08/08/25 05:00 08/08/25 04:00 100 H 08/08/25 04:00 98.0 F 107 H 16 163/56 H 94 L 08/08/25 03:00 08/08/25 01:40 90 08/08/25 01:00 08/08/25 00:20 99.1 F 87 18 164/61 H 97 08/08/25 00:18 98.2 F 84 20 157/79 H 08/08/25 00:15 08/07/25 21:12 98.5 F 90 14 153/60 H 100 O2 Del Method 08/08/25 12:00 Room Air 08/08/25 10:12 Room Air 08/08/25 09:00 Room Air 08/08/25 08:00 08/08/25 07:58 Room Air 08/08/25 06:32 Room Air 08/08/25 05:00 Room Air 08/08/25 04:00 08/08/25 04:00 Room Air 08/08/25 03:00 Room Air 08/08/25 01:40 08/08/25 01:00 Room Air 08/08/25 00:20 Room Air 08/08/25 00:18 Room Air 08/08/25 00:15 Room Air 08/07/25 21:12 Room Air Intake and Output 08/07/25 08/08/25 08/08/25 23:59 07:59 15:59 Intake Total Output Total 400 / 400 Balance -400 / -380 20 / -380 Intake: Intake, Oral Amount Output: Output, Urine Amount 400 / 400 Other: Number of Unmeasured Voids 0 Weight 54.431 kg 55.792 kg Patient Weight 08/08/25 23:59 Weight 55.792 kg Laboratory Results - last 24 hr 08/07/25 21:30: WBC 8.6, RBC 3.36 L, Hgb 11.0 L, Hct 33.0 L, MCV 98.2, MCH 32.7 H, MCHC 33.3, RDW 14.2, Plt Count 300, MPV 9.2, Neut % (Auto) 80.7 H, Lymph % (Auto) 6.3 L, [place] % (Auto) 11.1 H, Eos % (Auto) 0.8, Baso % (Auto) 0.5, Neut # (Auto) 6.9, Lymph # (Auto) 0.5 L, [place] # (Auto) 1.0, Eos # (Auto) 0.1, Baso # (Auto) 0.0, Total Counted 100, Neutrophils % (Manual) 87 H, Lymphocytes % (Manual) 5 L, Monocytes % (Manual) 8, Platelet Estimate Normal, RBC Morphology Normal, Sodium 139, Potassium 3.8, Chloride 107, Carbon Dioxide 29, Anion Gap 6.8, BUN 24 H D, Creatinine 0.60, Estimated Creat Clear 35, Estimated GFR 95, Est GFR ( Amer) 115, Glucose 106 H, Calcium 8.8, Total Bilirubin 1.1, AST 66 H, ALT 54, Alkaline Phosphatase 92, Troponin I 0.13 H, Total Protein 6.2 L, Albumin 3.3 L, Globulin 2.9, Albumin/Globulin Ratio 1.1, Lipase 117 08/07/25 23:00: Urine Color Yellow, Urine Appearance Clear, Urine pH 6.5, Ur Specific [place] 1.015, Urine Protein Negative, Urine Glucose (UA) Negative, Urine Ketones 1+, Urine Blood 1+ A, Urine Nitrate Negative, Urine Bilirubin Negative, Urine Urobilinogen 0.2, Ur Leukocyte Esterase Negative, Urine RBC 3-5, Urine WBC 3-5, Ur Squamous Epith Cells Occasional, Urine Bacteria 1+, Urine Opiates Screen Negative, Urine Methadone Screen Negative, Ur Barbituates Screen Negative, Ur Phencyclidine Scrn Negative, Ur Amphetamines Screen Negative, U Benzodiazepines Scrn Negative, Urine Cocaine Screen Negative, U Marijuana (THC) Screen Negative 08/08/25 00:10: Troponin I 0.11 H 08/08/25 03:51: WBC 8.0, RBC 3.19 L, Hgb 10.4 L, Hct 31.2 L, MCV 97.8, MCH 32.6 H, MCHC 33.3, RDW 14.2, Plt Count 303, MPV 9.2, Neut % (Auto) 78.7, Lymph % (Auto) 8.5 L, [place] % (Auto) 11.1 H, Eos % (Auto) 0.8, Baso % (Auto) 0.4, Neut # (Auto) 6.3, Lymph # (Auto) 0.7, [place] # (Auto) 0.9, Eos # (Auto) 0.1, Baso # ( Auto) 0.0, Sodium 140, Potassium 3.7, Chloride 107, Carbon Dioxide 27, Anion Gap 9.7, BUN 19 H, Creatinine 0.60, Estimated Creat Clear 35, Estimated GFR 95, Est GFR ( Amer) 115, Glucose 107 H, Calcium 8.6, Total Bilirubin 1.0, AST 58 H, ALT 48, Alkaline Phosphatase 86, Troponin I 0.09 H, Total Protein 6.0 L, Albumin 3.2 L, Globulin 2.8, Albumin/Globulin Ratio 1.1 I & O for Labs for Last 24 Hours: Intake & Output 08/05/25 08/06/25 08/07/25 08/08/25 23:59 23:59 23:59 23:59 Intake Total Output Total 400 / 400 Balance -380 / -380 Weight 54.431 kg 55.792 kg Constitutional: Present no acute distress, thin and chronically ill appearing Comment:: Opens eyes to voice but not cooperative on morning rounds. Not following commands. Head: Present atraumatic Respiratory: Present normal respiratory effort; Absent respiratory distress, rhonchi or wheezes Cardiac: Present Reg Rate and Rhythm GI: Present soft and normal bowel sounds; Absent tenderness Extremities: Present normal inspection and full ROM Skin: Present intact; Absent erythema Neuro: Present Grossly Intact, alert, awake and moves all extremities Comment:: Confused. Not following commands Assessment and Plan *Assessment and plan (1) Recurrent falls: Status: Acute Category: Medical Code(s): R29.6 - Repeated falls (2) Elevated troponin: Status: Acute Category: Medical Code(s): R79.89 - Other specified abnormal findings of blood chemistry (3) Closed intertrochanteric fracture of left hip: Status: Acute Qualifiers: Encounter type: subsequent encounter Fracture alignment: displaced Fracture healing: with routine healing Qualified Code(s): S72.142D - Displaced intertrochanteric fracture of left femur, subsequent encounter for closed fracture with routine healing Category: Medical Code(s): S72.142A - Displaced intertrochanteric fracture of left femur, initial encounter for closed fracture (4) Aortic insufficiency: Status: Acute Category: Medical Code(s): I35.1 - Nonrheumatic aortic (valve) insufficiency (5) Hypertension: Status: Acute Qualifiers: Hypertension type: primary hypertension Qualified Code(s): I10 - Essential (primary) hypertension Category: Medical Code(s): I10 - Essential (primary) hypertension (6) Anxiety: Status: Acute Category: Medical Code(s): F41.9 - Anxiety disorder, unspecified (7) History of stroke: Status: Acute Category: Medical Code(s): Z86.73 - Personal history of transient ischemic attack (TIA), and cerebral infarction without residual deficits (8) Severe protein-calorie malnutrition: Status: Acute Category: Medical Code(s): E43 - Unspecified severe protein-calorie malnutrition Plan Caity Villanueva is a 85-year-old female who sustained an unwitnessed fall. Discussed case with ER physician, request admission for cardiology evaluation. Admitted for further management. Cardiology evaluating today. Patient delirious today. at bedside after rounds. Discussed monitoring for improved intake and improvement in mentation. Anticipate discharge tomorrow. Problems addressed as follows: NSTEMI: - Suspect secondary to fall and stress of her fall and poor p.o. intake. Cardiology evaluated. No plan for PCI at this time. - Troponin trended down to 0.09. No changes on EKG or concerns for ischemic findings. - Continue aspirin 81 g daily for DVT prophylaxis and CAD Chronic anemia: Hgb 10.4 on admission, 10 on morning labs. White count 8. Platelets 303. Repeat CBC, CMP, magnesium ordered for the morning. Recent mechanical fall from standing height Proximal left femur fracture - Status post cephalomedullary nailing left proximal femur on 08/01/2025. Adnrei chauhan follow-up with orthopedics as previously scheduled as an outpatient. -Tylenol as needed for pain -Plan to discharge back to skilled therapy when medically appropriate. Continue aspirin 81 mg twice daily for DVT prophylaxis #delirium in the setting of underlying dementia - Patient seems more subdued this morning. Slow to improve. As the day went on she did awaken and eat with help from nursing. - Continue day night routine. Continue stimulation during the day. Urine unremarkable for UTI on admission - Continue melatonin nightly #History of CVA #History of aphasia, stridor ? Continue aspirin 81 mg twice daily as above. #Severe protein calorie malnutrition: Nutrition consulted, providing counseling and recommendations. Albumin 3.0 this morning Anxiety: Continue Auvelity 1 tab twice daily. Holding BuSpar daily Full code Cardiac diet Aspirin 81 mg twice daily for DVT prophylaxis.
[2025-08-08] MEDS: LACTATED RINGERS 1000ML 500 ML 250 ML IV (13:08)
[2025-08-08] MEDS: ACETAMINOPHEN 325MG TAB 650 MG PO (13:15)
[2025-08-08] MEDS: PRENATAL MULTIVITAMIN W/IRON 1 EACH PO (16:21)
--- NOTE | 2025-08-08 18:19 | PC.NURSE ---
pt resting in bed, low PO intake this shift, pt did drink 4 ensures, nonverbal most of the day, Left hip incision dressing C/D/I, call light in reach
--- NOTE | 2025-08-08 19:49 | EXP.EVENT.NO ---
Just called and informed patient vital signs are temp 102.9 ?F, BP 180/70, heart rate 120, O2 saturation 90% on room air. Patient here after falls and treatment for non-STEMI. Worried about febrile illness possibly new infection. Will order respiratory panel naris, MRSA naris, CBC, lactic acid, Pro-Jose, portable chest x-ray, UA, urine culture. Patient ripped out IVs, and currently without IV. Asked nurse to replace IV and will give 250 cc bolus over 2 hours. Will also empirically start 2 g IV Rocephin, 1 g IV vancomycin overnight.
--- NOTE | 2025-08-08 19:55 | XR_ITS ---
PROCEDURE INFORMATION: Exam: XR Chest Exam date and time: 08/08/2025 8:04 PM Age: 85 years old Clinical indication: Fever; Additional info: Febrille illness overnight TECHNIQUE: Imaging protocol: Radiologic exam of the chest. Views: 1 view. COMPARISON: CT ANGIO CHEST 08/07/2025 10:40 PM FINDINGS: Lungs: Hazy opacification of the left lung base which may represent any combination of atelectasis, small effusion, and/or airspace disease. Pleural spaces: No right pleural effusion. No pneumothorax. Heart/Mediastinum: Borderline cardiomegaly. Bones/joints: No acute osseous abnormality. IMPRESSION: Hazy opacification of the left lung base which may represent any combination of atelectasis, small effusion, and/or airspace disease such as pneumonia.
[2025-08-08] MEDS: KETOROLAC 15MG/ML VIAL 15 MG IV (20:42)
[2025-08-08] MEDS: SODIUM CHLORIDE 0.9% 250ML BAG 250 ML IV (20:42)
[2025-08-08 20:43] LABS: Adenovirus,PCR Not Detected (NotDetected); Chlamydophila Pneumoniae, PCR Not Detected (NotDetected); Coronavirus 19, PCR Not Detected (NotDetected); Coronovirus HKU1,PCR Not Detected (NotDetected); Influenza A, PCR Not Detected (NotDetected); Influenza AH1, 2009 Not Detected (NotDetected); Influenza AH1, PCR Not Detected (NotDetected); Influenza AH3,PCR Not Detected (NotDetected); Influenza B, PCR Not Detected (NotDetected); Mycoplasma Pneumoniae, PCR Not Detected (NotDetected); Parainfluenza 1, PCR Not Detected (NotDetected); Parainfluenza 2, PCR Not Detected (NotDetected); Parainfluenza 3, PCR Not Detected (NotDetected); Parainfluenza 4, PCR Not Detected (NotDetected)
[2025-08-08 20:48] LABS: Hematocrit 34.4 % (37.0-47.0); Hemoglobin 11.4 g/dL (12.2-16.2); Immature Granulocytes % 0.4 %; Mean Corpuscular HGB Conc 33.1 g/dL (31.8-35.4); Mean Corpuscular Hemoglobin 32.7 pg (27.0-31.2); Mean Corpuscular Volume 98.6 fl (81-99); Nucleated Red Blood Cells % 0 %; Platelet Count 369 K/mm3 (142-424); Red Blood Count 3.49 M/mm3 (4.20-5.40); Red Cell Distribution Width-SD 51.4 fL; White Blood Count 9.8 K/mm3 (4.8-10.8)
[2025-08-08 21:09] LABS: Procalcitonin 0.085 ng/mL (0.0-2.0)
[2025-08-08 21:27] LABS: Microscopic, Urine URINE MICROSCOPIC (MICROSCOPIC)
[2025-08-08 21:29] LABS: Color,Urine YELLOW (Yellow); Glucose,Urine (UA) Negative (Negative); Ketones,Urine 1+ (Negative); Leukocyte Esterase,Urine Negative (Negative); PH,Urine 6.5 (5.0-8.5); Protein,Urine 1+ (Negative); Specific Gravity, Urine 1.020 (1.005-1.030); Urobilinogen,Urine 1.0 EU/dl (0.2)
[2025-08-08 21:32] LABS: Bilirubin,Urine 1+ (Negative)
[2025-08-08] MEDS: VANCOMYCIN CONSULT REQUEST 1 EACH NOTAPPLIC (21:32)
[2025-08-08] MEDS: VANCOMYCIN HCL 1,000 MG in 0.9 % SODIUM CHLORIDE 250 ML 125 MG IV (21:32)
[2025-08-08 21:35] LABS: Bacteria,Urine 2+ /lpf
[2025-08-08 21:40] LABS: Anisocytosis 1+; Macrocytosis 1+; Microcytosis 1+; Poikilocytosis 1+; Polychromasia 1+; Total Cells Counted 100
[2025-08-09] VITALS (7 sets, daily range): BP systolic 129–147; BP diastolic 52–75; PULSE 80–112; RESP 14–17; TEMP 36.9–37.7; O2SAT 90–96; BMI 19.1
--- NOTE | 2025-08-09 03:20 | PC.NURSE ---
Pt has remained confused and non verbal. She has tolerated room air. She did run a temp of 102.9. Toradol was provided. On last check pt was 99.9. Iv antibiotics were given. Purewick has remained in place. Dressing to left hip has remained c/d/i. Q2 turns. Currently asleep with bed alarm in place.
[2025-08-09] MEDS: 0.9 % SODIUM CHLORIDE 1000ML 1,000 ML 100 ML IV (05:53)
--- NOTE | 2025-08-09 08:26 | EXP.PHA.CONS ---
Pharmacy Consult Date: 08/09/25 Time: 08:26 Referring provider: DR. ROUSE Reason for Consult:: VANCOMYCIN DOSING Allergies Allergy/AdvReac Type Severity Reaction Status Date / Time Penicillins Allergy Hives Verified 08/01/25 12:25 Home Medications ?Medication ?Instructions ?Recorded ?Confirmed ?Type alendronate 70 mg tablet 70 mg PO WEEKLY 03/23/24 08/08/25 History amlodipine 5 mg tablet 5 mg PO DAILY 03/23/24 08/08/25 History buspirone 10 mg tablet 10 mg PO TID 07/31/25 08/08/25 History Held on 08/07/25. Instructions: Pending improvement in mentation. Patient not exhibiting anxiety at this time calcium 600 mg capsule 600 mg PO DAILY 07/31/25 08/08/25 History tapypqmvmvzx-hzeybwg-vggbd acid 1 tab PO DAILY 07/31/25 08/08/25 History 400 mcg-vitamin K 80 mcg tablet (Multi For Her 50 Plus) vit C 250 mg-vit E 90 mg-zinc 40 1 tab PO BID 07/31/25 08/08/25 History mg-copper 1 hu-ywdttd-zmgxcu capsule (PreserVision AREDS-2) acetaminophen 325 mg tablet 650 mg (2 x 325 mg) PO Q4-6H PRN 08/07/25 08/08/25 Rx pain #120 tabs melatonin 5 mg tablet 2.5 mg (1/2 x 5 mg) PO HS 30 days 08/07/25 08/08/25 Rx #15 tabs polyethylene glycol 3350 17 gram 17 g PO DAILY #30 ea 08/07/25 08/08/25 Rx oral powder packet (HealthyLax) aspirin 81 mg chewable tablet 81 mg PO BID 08/08/25 08/08/25 History New Prescriptions to Start Prescriptions: Height: 1.63 m Weight: 50.848 kg Laboratory Results:: Laboratory Results - last 24 hr 08/08/25 20:15: WBC 9.8, RBC 3.49 L, Hgb 11.4 L, Hct 34.4 L, MCV 98.6, MCH 32.7 H, MCHC 33.1, RDW 14.3, Plt Count 369, MPV 9.3, Neut % (Auto) 90.8 H, Lymph % (Auto) 3.5 L, [place] % (Auto) 4.8, Eos % (Auto) 0.2, Baso % (Auto) 0.3, Neut # (Auto) 8.9 H, Lymph # (Auto) 0.3 L, [place] # (Auto) 0.5, Eos # (Auto) 0.0, Baso # (Auto) 0.0, Total Counted 100, Neutrophils % (Manual) 90 H, Lymphocytes % (Manual) 5 L, Monocytes % (Manual) 4, Eosinophils % (Manual) 1, Platelet Estimate Normal, Polychromasia 1+, Poikilocytosis 1+, Anisocytosis 1+, Microcytosis 1+, Macrocytosis 1+, Lactate 1.1, Procalcitonin 0.085 08/08/25 20:28: Chlamy pneumoniae PCR Not detected, Adenovirus (PCR) Not detected, B. pertussis DNA (PCR) Not detected, Coronavirus OC43 (PCR) Not detected, Coronavirus HKU1 (PCR) Not detected, Coronavirus 229E (PCR) Not detected, SARS-CoV-2 (PCR) Not detected, Coronavirus NL63 (PCR) Not detected, Human Metapneumovir PCR Not detected, Influenza A (H1) PCR Not detected, Influ A (H1N1/09) PCR Not detected, Influenza A (H3) PCR Not detected, Influenza Type A (PCR) Not detected, Influenza Type B (PCR) Not detected, M. pneumoniae (PCR) Not detected, Parainfluenza 1 (PCR) Not detected, Parainfluenza 2 (PCR) Not detected, Parainfluenza 3 (PCR) Not detected, Parainfluenza 4 (PCR) Not detected, RSV (PCR) Not detected, Entero/Rhino (PCR) Not detected 08/08/25 20:40: Urine Color Yellow, Urine Appearance Clear, Urine pH 6.5, Ur Specific [place] 1.020, Urine Protein 1+ A, Urine Glucose (UA) Negative, Urine Ketones 1+, Urine Blood 1+ A, Urine Nitrate Negative, Urine Bilirubin 1+ A, Urine Urobilinogen 1.0, Ur Leukocyte Esterase Negative, Urine RBC None, Urine WBC 3-5, Ur Squamous Epith Cells 3-5, Ur Renal Epithelial Cell 3-5, Urine Bacteria 2+ Medical History: Medical History (Updated 08/08/25 @ 19:57 by Tj Rouse MD) Elevated troponin Anxiety History of stroke Hypertension Assessment and Plan Assessment and plan all Dx Assessment and Plan for all problems:: Pharmacokinetic dosing service Objective: Patient: Floor: Age: 85 yo Serum creatinine: 0.60 mg/dL Height: 64.2 Inches Weight (kg): 50.8 Assessment: IBW (kg): 55.16 Dosing wt(kg): 50.8 Estimated Creatinine clearance (ml/min): 54.0 CRCL method: Cockcroft and Gault using ibw(default). Drug selected: Vancomycin Loading dose (mg): Vd (liters): 40.6 (factor used: 0.8 L/kg) Omar (hr-1): 0.049 Half life (hrs): 14.15 CLvanco=?? 1.989 L/hr Recommended dose: 1000 mg Interval: 24 hrs Infusion time (hrs): 2.0 Predicted peak (mcg/mL): 33.9 Predicted trough (mcg/mL): 11.54 Total body weight is being used for vancomycin dosing. Recommendations: Give Vancomycin 1000 mg q 24 hrs with an expected Cpeak of 33.9 mcg/ml and an expected Ctrough of 11.54 mcg/ml AUC 0-24 /OLGA Data: OLGA 0.5 mcg/mL:?? AUC/OLGA:? 1005.5 OLGA 1.0 mcg/mL:?? AUC/OLGA:? 502.8 --------- OLGA 1.5 mcg/mL:?? AUC/OLGA:? 335.2 OLGA 2.0 mcg/mL:?? AUC/OLGA:? 251.4 Thank you for the consult, will continue to follow. -MARY IBARRA, AMYD
[2025-08-09 08:27] LABS: Hematocrit 29.6 % (37.0-47.0); Immature Granulocytes % 0.4 %; Mean Corpuscular HGB Conc 32.4 g/dL (31.8-35.4); Mean Corpuscular Hemoglobin 32.8 pg (27.0-31.2); Mean Corpuscular Volume 101.0 fl (81-99); Nucleated Red Blood Cells % 0 %; Platelet Count 327 K/mm3 (142-424); Red Blood Count 2.93 M/mm3 (4.20-5.40); Red Cell Distribution Width-SD 52.3 fL; White Blood Count 11.2 K/mm3 (4.8-10.8)
[2025-08-09 08:33] LABS: Albumin Level 2.8 g/dl (3.5-5.0); Chloride 109 mmol/L (98-107); Potassium 3.1 mmoL/L (3.5-5.1); Sodium 139 mmol/L (136-145)
[2025-08-09 08:36] LABS: Alanine Aminotransferase 47 U/L (12-78); Albumin/Globulin Ratio 1.1 (1.1-1.8); Alkaline Phosphatase 90 U/L (38-126); Anion Gap 6.1 mEq/L (5-15); Aspartate Amino Transferase 77 U/L (14-36); Bilirubin,Total 0.8 mg/dl (0.2-1.3); Blood Urea Nitrogen 26 mg/dl (7-17); Calcium 7.6 mg/dl (8.4-10.2); Carbon Dioxide 27 mmol/L (22.0-30.0); Creatinine Clearance Estimated 32 mL/min (50-200); Creatinine,Serum 0.60 mg/dl (0.52-1.04); Estimated Glomerular Filt Rate 95 ml/min (>60); GFR (African American) 115 ML/MIN (>60); Globulin 2.6 g/dL (1.3-3.2); Glucose 96 mg/dl (74-100); Magnesium 2.1 mg/dl (1.6-2.3); Total Protein,Serum 5.4 g/dl (6.3-8.2)
[2025-08-09 08:42] LABS: Hemoglobin 9.6 g/dL (12.2-16.2)
--- NOTE | 2025-08-09 09:16 | DIET.NUTRFU ---
Spoke to nursing aid this morning and she reported that meal intake yesterday was still poor but drank 4-5 ensures, she was up in chair for lunch when was here. She will attempt to do that again today.LBM 08/08. plan is placement
--- NOTE | 2025-08-09 09:36 | EXP.ACUTE.PN ---
Subjective *Date: 08/09/25 *Time: 10:54 Interval history: Had a temperature overnight to 102.9. Workup including cultures obtained along with chest imaging and urinalysis. Urine suspicious for possible UTI. Chest x-ray does show left lower lobe opacification concerning for pneumonia. Started on empiric antibiotics. Was more alert yesterday afternoon. Up to chair this morning on rounds. Medical Exam Vital signs and Labs for Last 24 Hours: Vital Signs Temp Pulse Pulse Resp BP Pulse Ox O2 Del Method 08/09/25 06:37 Room Air 08/09/25 04:58 Room Air 08/09/25 04:00 99.0 F 112 H 16 147/75 H 91 L Room Air 08/09/25 04:00 100 H 08/09/25 03:00 Room Air 08/09/25 01:00 Room Air 08/09/25 00:00 110 H 08/09/25 00:00 99.9 F H 107 H 16 136/62 90 L Room Air 08/08/25 23:00 Room Air 08/08/25 21:00 Room Air 08/08/25 21:00 101.0 F H 08/08/25 20:00 120 H 08/08/25 20:00 Room Air 08/08/25 20:00 102.9 F H 120 H 18 180/71 H 90 L Room Air 08/08/25 16:00 100 H 08/08/25 16:00 98.4 F 104 H 16 160/64 H 96 08/08/25 12:00 110 H 08/08/25 12:00 98.3 F 108 H 16 164/62 H 94 L Room Air 08/08/25 10:12 Room Air Intake and Output 08/08/25 08/09/25 08/09/25 23:59 07:59 15:59 Intake Total 470 / 1950 Output Total 500 / 1050 250 / 250 Balance -30 / 900 -250 / -250 Intake: Intake, Oral Amount 120 / 1100 Intake, Total IV Amount 350 / 850 Ceftriaxone Sodium 2 gm In 0.9 100 / 100 % Sodium Chloride 100 ml @ 200 mls/hr IV Q24H [facility] Rx#: [id number] Vancomycin HCl 1,000 mg In 0.9 250 / 250 % Sodium Chloride 250 ml @ 125 mls/hr IV ONCE ONE Rx#:[id number] Output: Output, Urine Amount 500 / 1050 250 / 250 Other: Number of Unmeasured Voids 0 0 Number of Bowel Movements 1 Weight 50.848 kg 50.848 kg Patient Weight 08/09/25 23:59 Weight 50.848 kg Laboratory Results - last 24 hr 08/08/25 20:15: WBC 9.8, RBC 3.49 L, Hgb 11.4 L, Hct 34.4 L, MCV 98.6, MCH 32.7 H, MCHC 33.1, RDW 14.3, Plt Count 369, MPV 9.3, Neut % (Auto) 90.8 H, Lymph % (Auto) 3.5 L, [place] % (Auto) 4.8, Eos % (Auto) 0.2, Baso % (Auto) 0.3, Neut # (Auto) 8.9 H, Lymph # (Auto) 0.3 L, [place] # (Auto) 0.5, Eos # (Auto) 0.0, Baso # (Auto) 0.0, Total Counted 100, Neutrophils % (Manual) 90 H, Lymphocytes % (Manual) 5 L, Monocytes % (Manual) 4, Eosinophils % (Manual) 1, Platelet Estimate Normal, Polychromasia 1+, Poikilocytosis 1+, Anisocytosis 1+, Microcytosis 1+, Macrocytosis 1+, Lactate 1.1, Procalcitonin 0.085 08/08/25 20:28: Chlamy pneumoniae PCR Not detected, Adenovirus (PCR) Not detected, B. pertussis DNA (PCR) Not detected, Coronavirus OC43 (PCR) Not detected, Coronavirus HKU1 (PCR) Not detected, Coronavirus 229E (PCR) Not detected, SARS-CoV-2 (PCR) Not detected, Coronavirus NL63 (PCR) Not detected, Human Metapneumovir PCR Not detected, Influenza A (H1) PCR Not detected, Influ A (H1N1/09) PCR Not detected, Influenza A (H3) PCR Not detected, Influenza Type A (PCR) Not detected, Influenza Type B (PCR) Not detected, M. pneumoniae (PCR) Not detected, Parainfluenza 1 (PCR) Not detected, Parainfluenza 2 (PCR) Not detected, Parainfluenza 3 (PCR) Not detected, Parainfluenza 4 (PCR) Not detected, RSV (PCR) Not detected, Entero/Rhino (PCR) Not detected 08/08/25 20:40: Urine Color Yellow, Urine Appearance Clear, Urine pH 6.5, Ur Specific [place] 1.020, Urine Protein 1+ A, Urine Glucose (UA) Negative, Urine Ketones 1+, Urine Blood 1+ A, Urine Nitrate Negative, Urine Bilirubin 1+ A, Urine Urobilinogen 1.0, Ur Leukocyte Esterase Negative, Urine RBC None, Urine WBC 3-5, Ur Squamous Epith Cells 3-5, Ur Renal Epithelial Cell 3-5, Urine Bacteria 2+ 08/09/25 06:50: WBC 11.2 H, RBC 2.93 L, Hgb 9.6 L D, Hct 29.6 L, MCV 101.0 H, MCH 32.8 H, MCHC 32.4, RDW 14.6, Plt Count 327, MPV 9.8, Neut % (Auto) 87.0 H, Lymph % (Auto) 6.1 L, [place] % (Auto) 5.8, Eos % (Auto) 0.4, Baso % (Auto) 0.3, Neut # (Auto) 9.7 H, Lymph # (Auto) 0.7, [place] # (Auto) 0.7, Eos # (Auto) 0.1, Baso # (Auto) 0.0, Sodium 139, Potassium 3.1 L, Chloride 109 H, Carbon Dioxide 27, Anion Gap 6.1, BUN 26 H D, Creatinine 0.60, Estimated Creat Clear 32, Estimated GFR 95, Est GFR ( Amer) 115, Glucose 96, Calcium 7.6 L, Magnesium 2.1, Total Bilirubin 0.8, AST 77 H D, ALT 47, Alkaline Phosphatase 90, Total Protein 5.4 L, Albumin 2.8 L D, Globulin 2.6, Albumin/Globulin Ratio 1.1 I & O for Labs for Last 24 Hours: Intake & Output 08/06/25 08/07/25 08/08/25 08/09/25 23:59 23:59 23:59 23:59 Intake Total 1950 / 1950 Output Total 900 / 1050 250 / 250 Balance 1050 / 900 -250 / -250 Weight 54.431 kg 55.792 kg 50.848 kg Constitutional: Present no acute distress, thin and chronically ill appearing Comment:: In bedside chair, not following commands. Does open eyes to voice. Head: Present atraumatic Respiratory: Present crackles (Faint left lower lung field) and normal respiratory effort; Absent respiratory distress, rhonchi or wheezes Cardiac: Present Reg Rate and Rhythm GI: Present soft and normal bowel sounds; Absent tenderness Extremities: Present full ROM Comment:: Left leg incision clean dry and intact Skin: Present intact; Absent erythema Neuro: Present Grossly Intact, alert, awake and moves all extremities Comment:: Confused. Not following commands Assessment and Plan *Assessment and plan (1) Recurrent falls: Status: Acute Category: Medical Code(s): R29.6 - Repeated falls (2) Elevated troponin: Status: Acute Category: Medical Code(s): R79.89 - Other specified abnormal findings of blood chemistry (3) Closed intertrochanteric fracture of left hip: Status: Acute Qualifiers: Encounter type: subsequent encounter Fracture alignment: displaced Fracture healing: with routine healing Qualified Code(s): S72.142D - Displaced intertrochanteric fracture of left femur, subsequent encounter for closed fracture with routine healing Category: Medical Code(s): S72.142A - Displaced intertrochanteric fracture of left femur, initial encounter for closed fracture (4) Aortic insufficiency: Status: Acute Category: Medical Code(s): I35.1 - Nonrheumatic aortic (valve) insufficiency (5) Hypertension: Status: Acute Qualifiers: Hypertension type: primary hypertension Qualified Code(s): I10 - Essential (primary) hypertension Category: Medical Code(s): I10 - Essential (primary) hypertension (6) Anxiety: Status: Acute Category: Medical Code(s): F41.9 - Anxiety disorder, unspecified (7) History of stroke: Status: Acute Category: Medical Code(s): Z86.73 - Personal history of transient ischemic attack (TIA), and cerebral infarction without residual deficits (8) Severe protein-calorie malnutrition: Status: Acute Category: Medical Code(s): E43 - Unspecified severe protein-calorie malnutrition (9) Pneumonia: Status: Acute Qualifiers: Laterality: left Lung location: lower lobe of lung Category: Medical Code(s): J18.9 - Pneumonia, unspecified organism (10) Febrile illness: Status: Acute Category: Medical Code(s): R50.9 - Fever, unspecified Plan Caity Villanueva is a 85-year-old female who sustained an unwitnessed fall. Discussed case with ER physician, request admission for cardiology evaluation. Admitted for further management. Fever overnight. Concern for developing pneumonia. Initiated on antibiotics. Continues to require inpatient management. Monitor for 24 more hours, would like her to be afebrile prior to discharge back to nursing facility. Stable on room air. at bedside after rounds. Problems addressed as follows: Pneumonia Fever - Fever overnight 102.9. White count this morning increased to 11. Chest imaging per my review showing left lower lobe consolidation. Continue ceftriaxone and doxycycline. Ceftriaxone 2 g IV daily, Doxy 100 mg twice daily. - Urine suspicious for possible UTI as well. Cultures pending including urine and blood cultures. - Tylenol for fever. - Repeat CBC, CMP, magnesium ordered for the morning - Kidney function stable BUN 26, creatinine 0.6. Potassium 3.1, replaced per protocol. - Discontinue IV fluids after 500 cc NS IV. NSTEMI: - Suspect secondary to fall and stress of her fall and poor p.o. intake. Cardiology evaluated. No plan for PCI at this time. - Troponin trended down to 0.09. No changes on EKG or concerns for ischemic findings. - Continue aspirin 81 g daily for DVT prophylaxis and CAD Chronic anemia: Hgb 10.4 on admission, Hemoglobin 9.6. No active signs of bleeding. Recent mechanical fall from standing height Proximal left femur fracture - Status post cephalomedullary nailing left proximal femur on 08/01/2025. Routine follow-up with orthopedics as previously scheduled as an outpatient. -Tylenol as needed for pain -Plan to discharge back to skilled therapy when medically appropriate. Continue aspirin 81 mg twice daily for DVT prophylaxis #delirium in the setting of underlying dementia - Patient seems more subdued this morning. Slow to improve. As the day went on yesterday she did awaken and eat with help from nursing. - Continue day night routine. Continue stimulation during the day. Urine unremarkable for UTI on admission - Continue melatonin nightly #History of CVA #History of aphasia, stridor ? Continue aspirin 81 mg twice daily as above. #Severe protein calorie malnutrition: Nutrition consulted, providing counseling and recommendations. Albumin 3.0 this morning Anxiety: Continue Auvelity 1 tab twice daily. Holding BuSpar daily Full code Cardiac diet Aspirin 81 mg twice daily for DVT prophylaxis.
--- NOTE | 2025-08-09 09:54 | HMH.PHAAMS2 ---
- Antimicrobial Stewardship Review culture & sensitivity review Stewardship interventions: culture & sensitivity review, reviewed - no change Comments: CULTURES PENDING, EMPIRIC THERAPY CONTINUED
[2025-08-09] MEDS: AMLODIPINE 5MG TABLET 5 MG PO (10:37)
[2025-08-09] MEDS: OYSTER SHELL CALCIUM (ELEMENTAL) 500MG TAB 500 MG PO (10:37)
[2025-08-09] MEDS: ASPIRIN 81MG CHEWABLE TABLET 81 MG PO (10:37)
[2025-08-09] MEDS: DOXYCYCLINE HYCL 100 MG TABLET PO (10:39)
[2025-08-09] MEDS: POLYETHYLENE GLYCOL 3350 17 GM PACKET PO (10:40)
--- OUTSIDE RECORDS SUMMARY | 2025-08-09 10:40 | XMS_ITS | Clinical Summary ---
Author Organization [facility] Address [address] [id number] Care Team Providers Care Hair And Makeup Designer Name Role Phone Marin Ambrose MD Primary Care Provider [phone] Allergies Active Allergy Reactions Criticality Noted Date [...] Description 12/22/2025 2:30 PM EDT Office Visit [facility] [address], [address] [place] [address] Tamara King MD [address] [facility] [address] [place] [address] Health Maintenance Due Date Last Done Comments [facility]-Bone Density Scan 1939 [facility]-Depression Screening 1939 [facility]-Infant/Child/Adol SDOH Screenings 1939 [facility]- SDOH Screenings 1957 [facility]-Adult SDOH Screenings 1957 [facility]-Zoster Vaccines (2 of 3) 09/17/2007 07/23/2007 [facility]-RSV Vaccine: 60+ Years or (1 - 1-dose 75+ series) 2014 [facility]-DTaP,Tdap,and Td Vaccines (1 - Tdap) 05/07/2018 05/06/2018, 03/08/2002, 02/16/2002 [facility]-Medicare Annual Wellness (AWV) 12/16/2024 12/17/2023, 06/12/2022 [id number] Vaccine ( season) 2025 06/06/2024, 06/11/2022, 06/10/2021, [...] this topic Insurance [employer] Care Teams Hair And Makeup Designer Relationship Specialty Start Date End Date Marin Ambrose MD [address] [place], [place] [id number] PCP - General 11/05/22
[2025-08-09] MEDS: POTASSIUM CHLORIDE 20MEQ TAB 40 MEQ PO ×3 (12:51→20:32)
--- NOTE | 2025-08-09 16:16 | PC.NURSE ---
minimal urinary output today. attempted to bladder scan pt but bladder scanner not functioning. spoke with dr scherer who recommended in/out cath.
--- NOTE | 2025-08-09 17:41 | PC.NURSE ---
IN AND OUT CATH PERFORMED ON PATIENT. 400ML OF DARK REINIER, STRONG SMELLING URINE OUT. PATIENT TOLERATED WELL.
[2025-08-09] MEDS: PRENATAL MULTIVITAMIN W/IRON 1 EACH PO (17:50)
[2025-08-09] MEDS: ACETAMINOPHEN 325MG TAB 650 MG PO (18:10)
[2025-08-09] MEDS: KETOROLAC 30MG/ML VIAL 30 MG IV (18:27)
[2025-08-10] VITALS: BP 142/53; PULSE 77; PULSE 80; RESP 14; TEMP 36.8; O2SAT 91
--- NOTE | 2025-08-10 03:14 | PC.NURSE ---
Pt was unable to void since the last strait cath. Hospitalist notified and informed of broken bladder scan. He ordered to do another strait cath. Pt had 100ml output.
[2025-08-10 03:55] VITALS: BP 145/54; PULSE 80; RESP 18; TEMP 36.8; O2SAT 91
[2025-08-10 03:56] VITALS: BMI 19.2
[2025-08-10 04:00] VITALS: PULSE 80
[2025-08-10] MEDS: KETOROLAC 30MG/ML VIAL 30 MG IV (04:50)
[2025-08-10 06:48] LABS: Hematocrit 28.0 % (37.0-47.0); Hemoglobin 8.8 g/dL (12.2-16.2); Immature Granulocytes % 0.6 %; Mean Corpuscular HGB Conc 31.4 g/dL (31.8-35.4); Mean Corpuscular Hemoglobin 32.2 pg (27.0-31.2); Mean Corpuscular Volume 102.6 fl (81-99); Nucleated Red Blood Cells % 0 %; Platelet Count 305 K/mm3 (142-424); Red Blood Count 2.73 M/mm3 (4.20-5.40); Red Cell Distribution Width-SD 54.2 fL; White Blood Count 8.3 K/mm3 (4.8-10.8)
[2025-08-10 06:56] LABS: Albumin Level 2.7 g/dl (3.5-5.0); Chloride 111 mmol/L (98-107); Potassium 3.8 mmoL/L (3.5-5.1); Sodium 141 mmol/L (136-145)
[2025-08-10 06:59] LABS: Alanine Aminotransferase 45 U/L (12-78); Albumin/Globulin Ratio 1.1 (1.1-1.8); Alkaline Phosphatase 87 U/L (38-126); Anion Gap 9.8 mEq/L (5-15); Aspartate Amino Transferase 59 U/L (14-36); Bilirubin,Total 0.6 mg/dl (0.2-1.3); Blood Urea Nitrogen 28 mg/dl (7-17); Carbon Dioxide 24 mmol/L (22.0-30.0); Creatinine Clearance Estimated 33 mL/min (50-200); Creatinine,Serum 0.60 mg/dl (0.52-1.04); Estimated Glomerular Filt Rate 95 ml/min (>60); GFR (African American) 115 ML/MIN (>60); Globulin 2.5 g/dL (1.3-3.2); Total Protein,Serum 5.2 g/dl (6.3-8.2)
[2025-08-10 07:00] LABS: Calcium 7.8 mg/dl (8.4-10.2); Glucose 101 mg/dl (74-100)
[2025-08-10 07:54] VITALS: BP 155/74; PULSE 104; RESP 18; TEMP 37; O2SAT 91
[2025-08-10 07:55] LABS: Magnesium 2.1 mg/dl (1.6-2.3)
[2025-08-10 08:00] VITALS: PULSE 93
[2025-08-10 08:57] LABS: C-Reactive Protein 157.6 mg/L (0-4)
[2025-08-10] MEDS: POLYETHYLENE GLYCOL 3350 17 GM PACKET PO (09:21)
--- NOTE | 2025-08-10 09:39 | HMH.PHAAMS2 ---
- Antimicrobial Stewardship Review culture & sensitivity review Stewardship interventions: culture & sensitivity review (CURRENTLY RECEIVING DOXY AND AZITH, WBC DECREASED FROM 11.2K TO 8.3K, AFEBRILE, CX PENDING.)
--- NOTE | 2025-08-10 11:26 | EXP.DC.SUM ---
General Admission date:: 08/07/25 HPI HPI HPI: This is an 85-year-old female with past medical history significant for hypertension, anxiety, recent hip fracture, patient provide recurrent multiple falls, history of stroke. Patient presents to [facility] secondary to a fall that occurred at her facility. History provided per staff and chart review as patient is a poor historian. It was noted that the fall was unwitnessed. Discharged yesterday in good standing after undergoing a hip fracture repair. Imaging studies were obtained without any acute findings workup in the emergency department. Notable elevated troponin level found. Patient was without any complaints of chest pain. Received 324 mg aspirin. Hospitalist consulted for hospital admission for continued overnight observation due to elevated troponin level. Hospital Course Hospital Course Hospital Course: Caity Villanueva is a 85-year-old female who sustained an unwitnessed fall, recently discharged to SNF after left femoral fracture s/p surgical fixation. Concern for developing pneumonia given fevers. Initiated on antibiotics. #Acute metabolic encephalopathy, dementia #Hospital-acquired pneumonia #UTI #Fevers ? Patient presented with fevers, weakness, encephalopathy. Chest imaging concerning for left lower lobe pneumonia, UA also suspicious for UTI. ? Fevers up to 102.9 Fahrenheit. Afebrile over the last 24 hours. ? Since last admission, patient has been having waxing and waning mentation. There is underlying dementia as well with a history of CVA with baseline aphasia, stridor. at bedside very supportive. ? Significantly improved with IV ceftriaxone, doxycycline. HAP seems to have responded well to this regimen, so will discharge with cefdinir and doxycycline. ? Discharged with cefdinir 300 mg and doxycycline 100 mg twice daily for 4 more days. #Acute on chronic anemia ? Hemoglobin down to 8.8 on the morning of discharge. In the setting of IV fluids. Hemoglobin 9.8 yesterday. No signs of bleeding. ? Follow-up hemoglobin this afternoon stabilized at 9.5. ? Iron studies, B12, folate unremarkable. #NSTEMI: - Suspect secondary to fall and stress of her fall and poor p.o. intake. Cardiology evaluated. No plan for PCI at this time. - Troponin trended down to 0.09. No changes on EKG or concerns for ischemic findings. - Continue aspirin 81 g daily for DVT prophylaxis and CAD. Recent mechanical fall from standing height Proximal left femur fracture - Status post cephalomedullary nailing left proximal femur on 08/01/2025. Routine follow-up with orthopedics as previously scheduled as an outpatient. - Tylenol as needed for pain. Continue aspirin 81 mg twice daily for DVT prophylaxis. #History of CVA #History of aphasia, stridor ? Continue aspirin 81 mg twice daily as above. #Severe protein calorie malnutrition: Nutrition consulted, providing counseling and recommendations. Albumin 2.7 this morning Anxiety: Continue Auvelity 1 tab twice daily. Holding BuSpar daily Exam Data for Last 24 hours Vital signs and Labs for Last 24 Hours: Temp Pulse Resp BP Pulse Ox O2 Del Method 98.6 F 93 H 18 155/74 H 91 L Room Air 08/10/25 07:54 08/10/25 08:00 08/10/25 07:54 08/10/25 07:54 08/10/25 07:54 08/10/25 09:05 Laboratory Results - last 24 hr 08/10/25 06:31: WBC 8.3 D, RBC 2.73 L, Hgb 8.8 L, Hct 28.0 L, MCV 102.6 H, MCH 32.2 H, MCHC 31.4 L, RDW 14.6, Plt Count 305, MPV 9.5, Neut % (Auto) 81.4 H, Lymph % (Auto) 8.7 L, [place] % (Auto) 7.8, Eos % (Auto) 1.3, Baso % (Auto) 0.2, Neut # (Auto) 6.7, Lymph # (Auto) 0.7, [place] # (Auto) 0.6, Eos # (Auto) 0.1, Baso # (Auto) 0.0, Sodium 141, Potassium 3.8 D, Chloride 111 H, Carbon Dioxide 24, Anion Gap 9.8, BUN 28 H, Creatinine 0.60, Estimated Creat Clear 33, Estimated GFR 95, Est GFR ( Amer) 115, Glucose 101 H, Calcium 7.8 L, Magnesium 2.1, Total Bilirubin 0.6, AST 59 H, ALT 45, Alkaline Phosphatase 87, C-Reactive Protein 157.6 H, Total Protein 5.2 L, Albumin 2.7 L, Globulin 2.5, Albumin/Globulin Ratio 1.1 I & O for Last 24 hours: Intake & Output 08/07/25 08/08/25 08/09/25 12/25/25 23:59 23:59 23:59 23:59 Intake Total 1950 / 1950 1870 / 1870 360 / 360 Output Total 900 / 1050 650 / 650 100 / 100 Balance 1050 / 900 1220 / 1220 260 / 260 Weight 54.431 kg 55.792 kg 50.848 kg 51.075 kg Microbiology Reports for the Last 24 Hours: Microbiology 08/08/25 23:50 Blood Blood Culture - Preliminary NO GROWTH AFTER 24 HOURS 08/08/25 20:31 Blood Blood Culture - Preliminary NO GROWTH AFTER 24 HOURS Constitutional Constitutional: no acute distress and chronically ill appearing Comments: Pleasantly aphasic *Routine HEENT Exam Head: Present normocephalic Eye: Present EOMI and PERRL ENT: Present mucous membranes moist *Routine Neck Exam Neck: Present supple; Absent lymphadenopathy *Routine Respiratory Exam Respiratory: Present CTA bilaterally *Routine Cardiovascular Exam Cardiovascular: Present RRR *Routine Abdominal Exam Abdominal: Present soft and normoactive bowel sounds; Absent tenderness *Routine Extremities Exam Extremities: Absent cyanosis, clubbing or edema *Routine Skin Exam Skin: Present warm; Absent rash *Routine Neurological Exam Neurological: Present alert Results Data Completed and Pending Labs on day of discharge: Labs from last 24 hours 08/10/25 06:31 WBC 8.3 D RBC 2.73 L Hgb 8.8 L Hct 28.0 L MCV 102.6 H MCH 32.2 H MCHC 31.4 L RDW 14.6 Plt Count 305 MPV 9.5 Neut % (Auto) 81.4 H Lymph % (Auto) 8.7 L [place] % (Auto) 7.8 Eos % (Auto) 1.3 Baso % (Auto) 0.2 Neut # (Auto) 6.7 Lymph # (Auto) 0.7 [place] # (Auto) 0.6 Eos # (Auto) 0.1 Baso # (Auto) 0.0 Sodium 141 Potassium 3.8 D Chloride 111 H Carbon Dioxide 24 Anion Gap 9.8 BUN 28 H Creatinine 0.60 Estimated Creat Clear 33 Estimated GFR 95 Est GFR ( Amer) 115 Glucose 101 H Calcium 7.8 L Magnesium 2.1 Total Bilirubin 0.6 AST 59 H ALT 45 Alkaline Phosphatase 87 C-Reactive Protein 157.6 H Total Protein 5.2 L Albumin 2.7 L Globulin 2.5 Albumin/Globulin Ratio 1.1 Preliminary micro results at discharge 08/08/25 23:50 Blood Culture - Preliminary Blood NO GROWTH AFTER 24 HOURS 08/08/25 20:31 Blood Culture - Preliminary Blood NO GROWTH AFTER 24 HOURS DS: Diagnosis Discharge Diagnosis (1) Recurrent falls: Status: Acute Code(s): R29.6 - Repeated falls (2) Elevated troponin: Status: Acute Code(s): R79.89 - Other specified abnormal findings of blood chemistry (3) Closed intertrochanteric fracture of left hip: Status: Acute Code(s): S72.142A - Displaced intertrochanteric fracture of left femur, initial encounter for closed fracture Qualifiers: Encounter type: subsequent encounter Fracture alignment: displaced Fracture healing: with routine healing Qualified Code(s): S72.142D - Displaced intertrochanteric fracture of left femur, subsequent encounter for closed fracture with routine healing (4) Aortic insufficiency: Status: Acute Code(s): I35.1 - Nonrheumatic aortic (valve) insufficiency (5) Hypertension: Status: Acute Code(s): I10 - Essential (primary) hypertension Qualifiers: Hypertension type: primary hypertension Qualified Code(s): I10 - Essential (primary) hypertension (6) Anxiety: Status: Acute Code(s): F41.9 - Anxiety disorder, unspecified (7) History of stroke: Status: Acute Code(s): Z86.73 - Personal history of transient ischemic attack (TIA), and cerebral infarction without residual deficits (8) Severe protein-calorie malnutrition: Status: Acute Code(s): E43 - Unspecified severe protein-calorie malnutrition (9) Pneumonia: Status: Acute Code(s): J18.9 - Pneumonia, unspecified organism Qualifiers: Laterality: left Lung location: lower lobe of lung (10) Febrile illness: Status: Acute Code(s): R50.9 - Fever, unspecified Meds Home Medications and Allergies Home Medications ?Medication ?Instructions ?Recorded ?Confirmed ?Type alendronate 70 mg tablet 70 mg PO WEEKLY 03/23/24 08/08/25 History amlodipine 5 mg tablet 5 mg PO DAILY 03/23/24 08/08/25 History buspirone 10 mg tablet 10 mg PO TID 07/31/25 08/08/25 History calcium 600 mg capsule 600 mg PO DAILY 07/31/25 08/08/25 History qadtzrrxigxh-fjpswft-ypueb acid 1 tab PO DAILY 07/31/25 08/08/25 History 400 mcg-vitamin K 80 mcg tablet (Multi For Her 50 Plus) vit C 250 mg-vit E 90 mg-zinc 40 1 tab PO BID 07/31/25 08/08/25 History mg-copper 1 wn-nshckj-nkrzcb capsule (PreserVision AREDS-2) acetaminophen 325 mg tablet 650 mg (2 x 325 mg) PO Q4-6H PRN 08/07/25 08/08/25 Rx pain #120 tabs polyethylene glycol 3350 17 gram 17 g PO DAILY #30 ea 08/07/25 08/08/25 Rx oral powder packet (HealthyLax) aspirin 81 mg chewable tablet 81 mg PO BID 08/08/25 08/08/25 History cefdinir 300 mg capsule 300 mg PO BID 4 days #8 caps 08/10/25 Rx doxycycline hyclate 100 mg tablet 100 mg PO BID #9 tabs 08/10/25 Rx melatonin 5 mg tablet 2.5 mg (1/2 x 5 mg) PO HS PRN 08/10/25 08/08/25 Rx Insomnia 30 days #15 tabs New Prescriptions to Start Prescriptions: Raghu Peralta doxycycline hyclate Raghu Serrato Allergies Allergy/AdvReac Type Severity Reaction Status Date / Time Penicillins Allergy Hives Verified 08/01/25 12:25 Discharge Plan Disposition Patient Disposition: Xfer SNF Condition: Fair Discharge Order Discharge Orders: Discharge Order (Routine); Ordered 08/10/25 Ordered By: Raghu Serrato Follow up Plan Prescriptions/Medication Reconciliation: New doxycycline hyclate 100 mg Tablet 100 mg PO BID Qty: 9 0RF cefdinir 300 mg capsule 300 mg PO BID 4 Days Qty: 8 0RF Continued calcium 600 mg Capsule 600 mg PO DAILY Multi For Her 50 Plus 400-80 mcg Tablet 1 tab PO DAILY buspirone 10 mg tablet 10 mg PO TID PreserVision AREDS-2 250-90-40-1 mg Capsule 1 tab PO BID polyethylene glycol 3350 [HealthyLax] 17 gram Powder In Packet 17 g PO DAILY Qty: 30 0RF acetaminophen 325 mg tablet 650 mg PO Q4-6H PRN (Reason: pain) Qty: 120 0RF aspirin 81 mg Tablet,Chewable 81 mg PO BID amlodipine 5 mg tablet 5 mg PO DAILY alendronate 70 mg tablet 70 mg PO WEEKLY Changed melatonin 5 mg Tablet 2.5 mg PO HS PRN (Reason: Insomnia) 30 Days Qty: 15 0RF Problem Reconciliation Problems Reviewed?: Yes Patient Discharge Instructions Patient Instructions: DI for Pneumonia in Adults, DI for Urinary Tract Infection (UTI), How to Prevent Falls, Stop Light Pneumonia, Stop Light Infection Print Language: Kiswahili Providers Primary Care Provider: Marin Ambrose Admit Provider: Jimmy Mitchell Attending Provider: Jimmy Mitchell
[2025-08-10 12:00] VITALS: BP 142/73; PULSE 84; PULSE 91; RESP 16; TEMP 36.9; O2SAT 92
[2025-08-10 13:02] LABS: Hematocrit 30.6 % (37.0-47.0); Hemoglobin 9.5 g/dL (12.2-16.2)
[2025-08-11 16:12] LABS: Legionella pneumophila Urinary Negative (Negative)
== END 2025-08-10 15:19 | DRG 280 ==
LOC: ER 21:17 → 2ND 08-08 00:10
PROVIDERS: Internal Medicine; Nurse Practitioner Acute Care; Student in an Organized Health Care Education/Training Program; Admitting Provider Internal Medicine Adolescent Medicine; Emergency Provider Student in an Organized Health Care Education/Training Program; PCP Emergency Medicine; Visit Provider Internal Medicine Adolescent Medicine
DX: I21.4 Non-ST elevation (NSTEMI) myocardial infarction (principal); E43 Unspecified severe protein-calorie malnutrition; J18.9 Pneumonia, unspecified organism; G93.41 Metabolic encephalopathy; N39.0 Urinary tract infection, site not specified; Z68.1 Body mass index [BMI] 19.9 or less, adult; F03.94 Unspecified dementia, unspecified severity, with anxiety; F05 Delirium due to known physiological condition; Y95 Nosocomial condition; R29.6 Repeated falls; S72.142D Displaced intertrochanteric fracture of left femur, subsequent encounter for closed fracture with routine healing; I35.1 Nonrheumatic aortic (valve) insufficiency; I10 Essential (primary) hypertension; Z86.73 Personal history of transient ischemic attack (TIA), and cerebral infarction without residual deficits; D64.9 Anemia, unspecified; Z79.82 Long term (current) use of aspirin; Z88.0 Allergy status to penicillin; W19.XXXD Unspecified fall, subsequent encounter
CPT/HCPCS: 0223U; 36415; 70450; 70498; 71045; 71275; 72125; 72128; 72131; 73502; 73552; 74174; 80053; 80307; 81001; 83605; 83690; 83735; 84145; 84484; 85007; 85014; 85018; 85025; 85610; 86140; 87040; 87081; 87086; 87449; 93005; 97162; 97165; 97530; 99285; J0696; J1885; J3373; J7030; J7050; J7120; Q9967

== ENCOUNTER 2025-08-14 10:05 | Outpatient (CLI) | payer MEDICARE, SELFPAY ==
--- NOTE | 2025-08-14 10:09 | XR_ITS ---
FINAL REPORT CLINICAL HISTORY: left hip fx COMPARISON: 08/07/2025 FINDINGS: An AP view of the pelvis and a frog leg view of the left hip were obtained. Again seen are changes from ORIF of the left femoral neck. The hardware appears intact. There has been interval callus formation. No new osseous abnormality identified or evidence of hardware compromise. 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 Remaining osseous pelvis is without acute abnormality. Soft tissues are unremarkable. IMPRESSION: Left femoral neck fracture with interval callus formation and intact hardware. Reviewed, Interpreted and Dictated by Christa Hartley MD Transcribed by Sandra Silva Authenticated and [facility]
--- OUTSIDE RECORDS SUMMARY | 2025-08-14 10:16 | XMS_ITS | Clinical Summary ---
Author Organization [facility] Address [address] [id number] Care Team Providers Care Imaging Analyst Name Role Phone Marin Ambrose MD Primary Care Provider [phone] Allergies Active Allergy Reactions Criticality Noted Date [...] Description 12/22/2025 2:30 PM EDT Office Visit [facility] [address], [address] [place] [address] Tamara King MD [address] [place] [address] Health Maintenance Due Date Last Done Comments [facility]-Bone Density Scan 1939 [facility]-Depression Screening 1939 [facility]-Infant/Child/Adol SDOH Screenings 1939 [facility]- SDOH Screenings 1957 [facility]-Adult SDOH Screenings 1957 [facility]-Zoster Vaccines (2 of 3) 09/17/2007 07/23/2007 [facility]-RSV Vaccine: 60+ Years or (1 - 1-dose 75+ series) 2014 [facility]-DTaP,Tdap,and Td Vaccines (1 - Tdap) 05/07/2018 05/06/2018, 03/08/2002, 02/16/2002 [facility]-Medicare Annual Wellness (AWV) 12/16/2024 12/17/2023, 06/12/2022 [id number] Vaccine ( season) 2025 06/06/2024, 06/11/2022, 06/10/2021, [...] this topic Insurance [employer] Care Teams Imaging Analyst Relationship Specialty Start Date End Date Marin Ambrose MD [address] [place], [place] [id number] PCP - General 11/05/22
== END 2025-08-14 23:59 ==
PROVIDERS: PCP Emergency Medicine; Visit Provider Orthopaedic Surgery
DX: S72.002D Fracture of unspecified part of neck of left femur, subsequent encounter for closed fracture with routine healing (principal); X58.XXXD Exposure to other specified factors, subsequent encounter; M16.0 Bilateral primary osteoarthritis of hip
CPT/HCPCS: 73502